=== PATIENT | female | born 1950 | race Caucasian/White ===

== ENCOUNTER 2016-04-17 06:53 | Emergency (ER) | payer OTHER ==
[2016-04-17] MEDS ORDERED: NS 0.9% 1000 ML* 1,000 ML IV ONE (07:29)
[2016-04-17 07:51] LABS: Hematocrit 40 % (35-47); Hemoglobin 13.3 g/dl (12.0-16.0); Mean Corpuscular HGB Conc 33 g/dl (31-36); Mean Corpuscular Hemoglobin 33 pg (27-31); Mean Corpuscular Volume 98 fL (80-97); Mean Platelet Volume 9 um3 (7.4-10.4); Red Blood Count 4.06 10^6/ul (4.0-5.4); Red Cell Distribution Width 16 % (10.5-15); White Blood Count 6.8 10^3/ul (3.5-10.8)
[2016-04-17 08:08] LABS: Albumin 3.6 g/dL (3.2-5.2); BUN/Creatinine Ratio 12.3 (8-20); Calcium 8.6 mg/dL (8.6-10.3); EGFR African American 118.4 (>60); EGFR Non-African American 92.1 (>60); Globulin 2.6 g/dL (2-4); Magnesium 1.5 mg/dL (1.9-2.7); Potassium 3.6 mmol/L (3.5-5.0); Total Bilirubin 1.1 mg/dL (0.2-1.0); Total Protein 6.2 g/dL (6.4-8.9)
[2016-04-17 08:11] LABS: Troponin I 0.01 ng/mL (<0.04)
[2016-04-17] MEDS ORDERED: Magnesium Sulfate 2 GM IV* 2 GM/50 ML BAG IVPB ONE (08:22)
[2016-04-17] MEDS ORDERED: Ondansetron INJ* 2 MG/ML VIAL IV ONE (08:30)
--- NOTE | 2016-04-17 08:30 | ED ---
Kofi Jarrett Karl, scribed for Ainsley Phoenix MD on 04/17/16 at 0801 . Complex/Multi-Sys Presentation - HPI Summary HPI Summary: Pt is a 65 y/o female that presents to the ED by EMS with c/o vomiting and cold symptoms - head and ear congestion, sore throat, cough x 2 days. Pt stated she was vomiting every 30 min last everning. Pt has been suffering from sinus congestion and ear ache for 2 days. Pt also reported feeling feverish, not measured, and dizziness while she was getting up to go to the bathroom yesterday. Pt states she took all of her medications including protonix, metoprolol, and Opana at 5am and her symptoms are "better" Pt stated that currently in the ED she is suffering from sore throat, WHYTE and fatigue. Pt did not get the flu vaccine this year. Pt was around another with similar sx on Sunday. Pt denies cp, sob, abd pain. Pt did take over the counter decongestant, antihistamine with little improvement but may have thrown up, - History Of Current Complaint Chief Complaint: EDGeneral Time Seen by Provider: 04/17/16 07:29 Hx Obtained From: Patient Onset/Duration: Gradual Onset, Lasting Days - 2, Still Present Timing: Constant Severity Currently: Mild Severity Initially: Mild Associated Signs And Symptoms: Positive: Dizziness, Cough, Vomiting, Fever. Negative: Decreased Responsiveness, Confusion, Headache, SOB, Wheezing, Diaphoresis, Anticoagulation Therapy - Allergies/Home Medications Allergies/Adverse Reactions: Allergies Allergy/AdvReac Type Severity Reaction Status Date / Time Acetaminophen [From Tylenol] Allergy GI Upset Verified 01/11/15 01:07 Penicillins [PCN] Allergy Unknown Verified 01/11/15 01:08 Reaction Details Influenza Vaccines AdvReac Unknown See Comment Verified 01/11/15 01:08 Ibuprofen AdvReac See Comment Verified 01/11/15 01:08 PMH/Surg Hx/FS Hx/Imm Hx Previously Healthy: Yes Endocrine/Hematology History: Reports: Hx Anticoagulant Therapy - lovenox, Hx Blood Transfusions, Hx Anemia Denies: Hx Diabetes, Hx Systemic Lupus Erythematosus, Hx Thyroid Disease Cardiovascular History: Reports: Hx Deep Vein Thrombosis, Hx Embolism, Hx Hypertension, Other Cardiovascular Problems/Disorders - TACHY Denies: Hx Congestive Heart Failure Respiratory History: Reports: Hx Asthma, Hx Chronic Obstructive Pulmonary Disease (COPD), Hx Pulmonary Embolism, Hx Seasonal Allergies, Other Respiratory Problems/Disorders - PULMONARY EMBOLI GI History: Reports: Hx Gastroesophageal Reflux Disease, Hx Gastrointestinal Bleed, Hx Ulcer, Other GI Disorders - Gastric Bypass, hx GI bleed History: Denies: Hx Dialysis, Hx Renal Disease Musculoskeletal History: Reports: Hx Arthritis - left knee, Hx Back Problems, Hx Orthopedic Injury - left foot, Other Musculoskeletal History - HX OBESITY, S/ P GASTIC BYPASS 2003 Denies: Hx Rheumatoid Arthritis Sensory History: Reports: Hx Contacts or Glasses - reading Opthamlomology History: Reports: Hx Contacts or Glasses - reading Neurological History: Denies: Hx CVA Psychiatric History: Reports: Hx Anxiety, Hx Depression - Cancer History Cancer Type, Location and Year: 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 HYSTERECTOMY 2003. GASTRIC BYPASS 2003. D&C. left foot Fx, plates and screws. cholecystectomy Hx Anesthesia Reactions: No - Immunization History Date of Tetanus Vaccine: PT STATES UNSURE Date of Influenza Vaccine: NONE Infectious Disease History: No Infectious Disease History: Reports: Hx Hepatitis - ulcers Denies: Traveled Outside the [place] in Last 30 Days - Family History Known Family History: Positive: Hypertension, Diabetes, Other - CA - Social History Alcohol Use: None Alcohol Amount: States I drink more than I should Substance Use Type: Reports: None Smoking Status (MU): Never Smoked Tobacco Review of Systems Positive: Fever, Fatigue Negative: Drainage, Erythema ENT: Other - sinus congestion Positive: Sore Throat, Ear Ache Cardiovascular: Negative Negative: Palpitations, Chest Pain Positive: Cough. Negative: Shortness Of Breath Positive: Vomiting. Negative: Diarrhea, Nausea Genitourinary: Negative Musculoskeletal: Negative Skin: Negative Neurological: Other - dizziness Positive: Headache Psychological: Normal All Other Systems Reviewed And Are Negative: Yes Physical Exam Triage Information Reviewed: Yes Vital Signs On Initial Exam: Initial Vitals Temp Pulse Resp BP Pulse Ox 99.1 F 90 16 138/85 97 04/17/16 07:19 04/17/16 07:19 04/17/16 07:19 04/17/16 07:19 04/17/16 07:19 Vital Signs Reviewed: Yes Completion Of Physical Exam Limited Due To: Altered Mental Status Appearance: Positive: Well-Appearing, No Pain Distress, Well-Nourished Skin: Positive: Warm, Skin Color Reflects Adequate Perfusion, Dry Head/Face: Positive: Normal Head/Face Inspection Eyes: Positive: Normal, EOMI, WILLIAM ENT: Positive: Pharynx normal, Nasal congestion - turbinates inflammed, Other - + PND No exudate, erythema uvula midline. Negative: Nasal drainage, TMs normal - scant fluid b/l TM - no retraction, erythema, bulging, TM dull, TM red, Tonsillar exudate Neck: Positive: Supple, Nontender, No Lymphadenopathy Respiratory/Lung Sounds: Positive: Clear to Auscultation, Breath Sounds Present. Negative: Decreased Breath Sounds, Rales, Stridor, Wheezes Cardiovascular: Positive: Normal, RRR. Negative: IRR, Murmur, Rub, Leg Edema Left, Leg Edema Right Abdomen Description: Positive: Nontender, No Organomegaly, Soft Bowel Sounds: Positive: Present Musculoskeletal: Positive: Normal, Strength/ROM Intact Neurological: Positive: Normal, Sensory/Motor Intact, Alert, Oriented to Person Place, Time Psychiatric: Positive: Normal AVPU Assessment: Alert - Colome Coma Scale Best Eye Response: 4 - Spontaneous Best Motor Response: 6 - Obeys Commands Best Verbal Response: 5 - Oriented Diagnostics - Vital Signs Vital Signs Temp Pulse Resp BP Pulse Ox 04/17/16 07:19 99.1 F 90 16 138/85 97 - Laboratory Lab Results: Lab Results 04/17/16 04/17/16 Range/Units 07:35 07:35 WBC 6.8 (3.5-10.8) 10^3/ul RBC 4.06 (4.0-5.4) 10^6/ul Hgb 13.3 (12.0-16.0) g/dl Hct 40 (35-47) % MCV 98 H (80-97) fL MCH 33 H (27-31) pg MCHC 33 (31-36) g/dl RDW 16 H (10.5-15) % Plt Count 205 (150-450) 10^3/ul MPV 9 (7.4-10.4) um3 Neut % (Auto) 80.2 (38-83) % Lymph % (Auto) 8.8 L (25-47) % [place] % (Auto) 9.1 H (1-9) % Eos % (Auto) 1.5 (0-6) % Baso % (Auto) 0.4 (0-2) % Absolute Neuts (auto) 5.5 (1.5-7.7) 10^3/ul Absolute Lymphs (auto) 0.6 L (1.0-4.8) 10^3/ul Absolute Monos (auto) 0.6 (0-0.8) 10^3/ul Absolute Eos (auto) 0.1 (0-0.6) 10^3/ul Absolute Basos (auto) 0 (0-0.2) 10^3/ul Absolute Nucleated RBC 0 10^3/ul Nucleated RBC % 0 Sodium 138 (133-145) mmol/L Potassium 3.6 (3.5-5.0) mmol/L Chloride 105 (101-111) mmol/L Carbon Dioxide 25 (22-32) mmol/L Anion Gap 8 (2-11) mmol/L BUN 8 (6-24) mg/dL Creatinine 0.65 (0.51-0.95) mg/dL Est GFR ( Amer) 118.4 (>60) Est GFR (Non-Af Amer) 92.1 (>60) BUN/Creatinine Ratio 12.3 (8-20) Glucose 108 H (70-100) mg/dL Calcium 8.6 (8.6-10.3) mg/dL Magnesium 1.5 L (1.9-2.7) mg/dL Total Bilirubin 1.10 H (0.2-1.0) mg/dL AST 23 (13-39) U/L ALT 18 (7-52) U/L Alkaline Phosphatase 96 (34-104) U/L Total Creatine Kinase 31 (10-223) U/L Troponin I 0.01 (<0.04) ng/mL Total Protein 6.2 L (6.4-8.9) g/dL Albumin 3.6 (3.2-5.2) g/dL Globulin 2.6 (2-4) g/dL Albumin/Globulin Ratio 1.4 (1-3) Lipase 14 (11.0-82.0) U/L Result Diagrams: 04/17/16 07:35 04/17/16 07:35 Lab Statement: Any lab studies that have been ordered have been reviewed, and results considered in the medical decision making process. - Radiology No standard instances Radiology Interpretation Completed By: Radiologist - NDICATION: Cough. Congestion. COMPARISON: February 22, 2016 TECHNIQUE: An AP portable view obtained at 0855 hours is submitted. FINDINGS: Bones/Soft Tissues: There are no acute bony findings. Cardiomediastinal: The cardiomediastinal silhouette is normal. Lungs: There are no infiltrates. Pleura: There are no pleural effusions. Other: None IMPRESSION: NO ACTIVE DISEASE. <Electronically signed by Main Tao MD in OV> 04/17/16 0909 - EKG 07:30 EKG Interpretation: NSR at 87 bpm, No acute ST changes Re-Evaluation - Re-Evaluation First Eval Change: Improved - Pt continues to feel well d/w pt low Magnesium - replacement order Awaiting flyu and CXR pt without acute needs Second Eval Change: Improved - pt states feels much better Took po Will d/c with Rx flonase PCP f/u reviewed with pt secretion hygeine Complex Multi-Symp Course/Dx Assessment/Plan: Pt presents with 12 hours n/v, dizziness, head congestion, ear fullness and sore throat after exposure to someone with simiarl sx on Sat. Pt took morning meds and feels well at time of presentation. Will give IVF, check labs, EKG, urine, CxR, flu and throat. If all unremarkable, will d.c home - recommend nasal spray. Pt in agreement with plan - Diagnoses Provider Diagnoses: Hypomagnesemia, Head congestion Discharge - Discharge Plan Condition: Improved Disposition: HOME Patient Education Materials: Hypomagnesemia (ED), Upper Respiratory Infection (ED) Referrals: Hyun Obando MD [Primary Care Provider] - Additional Instructions: - Stay well hydrated - drink plenty on non-alcoholic, non-caffinated beverage - For the first 8 hours - eat and drink bland foods - dry toast, crackers, scrambled eggs, pasta noodles. If you tolerate this okay, slowly add food to your diet. Wait until you are feeling better before eating spicy food, acidic food, tomato based food - Use nasal spray as directed for congestion - Once you are feeling better, change your pillow case and your toothbrush -contact your doctor to schedule a follow-up appointment. Contact your doctor or return with questions or concerns The documentation as recorded by the Kofi neil Karl accurately reflects the service I personally performed and the decisions made by me, Ainsley Phoenix MD.
--- NOTE | 2016-04-17 09:13 | RAD ---
INDICATION: Cough. Congestion. COMPARISON: February 22, 2016 TECHNIQUE: An AP portable view obtained at 0855 hours is submitted. FINDINGS: Bones/Soft Tissues: There are no acute bony findings. Cardiomediastinal: The cardiomediastinal silhouette is normal. Lungs: There are no infiltrates. Pleura: There are no pleural effusions. Other: None IMPRESSION: NO ACTIVE DISEASE.
[2016-04-17 11:05] VITALS: BP 118/66
== END 2016-04-17 11:05 | disposition home or self-care (01) ==
LOC: ED 06:53
DX: E83.42 Hypomagnesemia (principal); R09.81 Nasal congestion; R11.0 Nausea; R50.9 Fever, unspecified; R05 Cough; R42 Dizziness and giddiness; J02.9 Acute pharyngitis, unspecified
CPT/HCPCS: 36415; 71010; 80053; 82550; 83690; 83735; 84484; 85025; 87502; 87651; 93005; 96374; 99284; J2405; J3475

== ENCOUNTER 2016-04-23 16:37 | Inpatient (IN) | payer OTHER ==
[2016-04-23] MEDS ORDERED: Ibuprofen TAB* 600 MG PO ONE (17:04)
--- NOTE | 2016-04-23 17:21 | ED ---
Back Pain - HPI Summary HPI Summary: Patient presents with left hip and lower back pain after slipping and falling on her icy driveway last night. She wasn't able to get up immediately, and had to slide down to get to a spot where she could get up safely. Once she was up she had pain. Today her discomfort is so intense that she is unable to bear weight on the leg. She has chronic pain and her regular medications have not taken her pain away. She does not notice bruising or swelling. When she forward flexes the hip beyond 30 degrees she has to stop due to pain. She denies previous injury to this hip, but does have a history of cancer and "brittle bones" as a result of treatments. No N/T or swelling in the extremity. - History of Current Complaint Chief Complaint: EDBackInjuryPain Stated Complaint: BACK PAIN Time Seen by Provider: 04/23/16 16:56 Hx Obtained From: Patient Onset/Duration: Sudden Onset Onset/Duration: Started Days Ago - 1 Timing: Constant Back Pain Location: Is Discrete @ - left hip Severity Initially: Moderate Severity Currently: Moderate Pain Intensity: 7 Character: Sharp, Aching, Stiffness Aggravating Symptom(s): Movement Alleviating Symptom(s): Nothing Associated Signs And Symptoms: Positive: Pain with Weight Bearing - Allergies/Home Medications Allergies/Adverse Reactions: Allergies Allergy/AdvReac Type Severity Reaction Status Date / Time Acetaminophen [From Tylenol] Allergy GI Upset Verified 01/11/15 01:07 Penicillins [PCN] Allergy Unknown Verified 01/11/15 01:08 Reaction Details Influenza Vaccines AdvReac Unknown See Comment Verified 01/11/15 01:08 Ibuprofen AdvReac See Comment Verified 01/11/15 01:08 PMH/Surg Hx/FS Hx/Imm Hx Endocrine/Hematology History: Reports: Hx Anticoagulant Therapy - lovenox, Hx Blood Transfusions, Hx Anemia Denies: Hx Diabetes, Hx Systemic Lupus Erythematosus, Hx Thyroid Disease Cardiovascular History: Reports: Hx Deep Vein Thrombosis, Hx Embolism, Hx Hypertension, Other Cardiovascular Problems/Disorders - TACHY Denies: Hx Congestive Heart Failure Respiratory History: Reports: Hx Asthma, Hx Chronic Obstructive Pulmonary Disease (COPD), Hx Pulmonary Embolism, Hx Seasonal Allergies, Other Respiratory Problems/Disorders - PULMONARY EMBOLI GI History: Reports: Hx Gastroesophageal Reflux Disease, Hx Gastrointestinal Bleed, Hx Ulcer, Other GI Disorders - Gastric Bypass, hx GI bleed History: Denies: Hx Dialysis, Hx Renal Disease Musculoskeletal History: Reports: Hx Arthritis - left knee, Hx Back Problems, Hx Orthopedic Injury - left foot, Other Musculoskeletal History - HX OBESITY, S/ P GASTIC BYPASS 2003 Denies: Hx Rheumatoid Arthritis Sensory History: Reports: Hx Contacts or Glasses - reading Opthamlomology History: Reports: Hx Contacts or Glasses - reading Neurological History: Denies: Hx CVA Psychiatric History: Reports: Hx Anxiety, Hx Depression - Cancer History Cancer Type, Location and Year: 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 HYSTERECTOMY 2003. GASTRIC BYPASS 2003. D&C. left foot Fx, plates and screws. cholecystectomy Hx Anesthesia Reactions: No - Immunization History Date of Tetanus Vaccine: PT STATES UNSURE Date of Influenza Vaccine: NONE Infectious Disease History: No Infectious Disease History: Reports: Hx Hepatitis - ulcers Denies: Traveled Outside the [place] in Last 30 Days - Family History Known Family History: Positive: Hypertension, Diabetes, Other - CA - Social History Occupation: Retired Lives: With Family Alcohol Use: None Alcohol Amount: States I drink more than I should Substance Use Type: Reports: None Smoking Status (MU): Never Smoked Tobacco Review of Systems Positive: Myalgia, Decreased ROM Negative: Weakness, Paresthesia, Numbness All Other Systems Reviewed And Are Negative: Yes Physical Exam Triage Information Reviewed: Yes Vital Signs On Initial Exam: Initial Vitals Temp Pulse Resp BP Pulse Ox 97.0 F 92 16 117/80 96 04/23/16 16:44 04/23/16 16:44 04/23/16 16:44 04/23/16 16:44 04/23/16 16:44 Vital Signs Reviewed: Yes Appearance: Positive: Well-Appearing, Well-Nourished, Pain Distress Skin: Positive: Warm, Skin Color Reflects Adequate Perfusion, Dry, Soft Head/Face: Positive: Normal Head/Face Inspection Eyes: Positive: EOMI, WILLIAM, Conjunctiva Clear ENT: Positive: Hearing grossly normal Neck: Positive: Supple, Nontender Respiratory/Lung Sounds: Positive: Breath Sounds Present Cardiovascular: Positive: RRR Musculoskeletal: Positive: Limited @ - left hip flexion to 30 with pain; pain limited all other ranges, Pain @ - TTP left greater troch; no pain with palp of femur/groin or SI; pelvis stable; no pain with ER/IR rotation with hip in neutral Neurological: Positive: Sensory/Motor Intact, Alert, Oriented to Person Place, Time, NV Bundle Intact Distally - 2+ DP pulse, Unable to Assess Gait Psychiatric: Positive: Affect/Mood Appropriate AVPU Assessment: Alert Diagnostics - Vital Signs Vital Signs Temp Pulse Resp BP Pulse Ox 04/23/16 16:44 97.0 F 92 16 117/80 96 - Laboratory Result Diagrams: 04/23/16 20:47 04/23/16 20:47 Lab Statement: Any lab studies that have been ordered have been reviewed, and results considered in the medical decision making process. - Radiology No standard instances Xray Interpretation: No Acute Changes Radiology Interpretation Completed By: Radiologist - CT No standard instances CT Interpretation: Positive (See Comments) CT Interpretation Completed By: Radiologist - Left non-displaced greater trochanteric fracture Re-Evaluation - Re-Evaluation First Eval Re-Evaluation Time: 19:00 Change: Improved - pain diminished with ibuprofen Back Pain Course/Dx - Diagnoses Differential Diagnosis/HQI/PQRI: Positive: Arthritis, Fracture, Herniated Disc, Osteoporosis, Strain, Sprain Provider Diagnoses: Closed fracture of greater trochanter of left femur - Provider Notifications Discussed Care of Patient With: Dr. Naylor with orthopedics; Dr. Rodriguez with hospital medicine Time Discussed With Above Provider: 18:55 Instructed by Provider To: Admit As Inpatient Discharge - Discharge Plan Condition: Stable Disposition: ADMITTED TO [facility]
--- NOTE | 2016-04-23 17:50 | RAD ---
HISTORY: Fall on ice, left hip pain, pelvis pain COMPARISONS: February 23, 2014 VIEWS: 3, Frontal view of the pelvis with frontal and frog-leg views FINDINGS: BONE DENSITY: Normal. BONES: There are chronic appearing fractures of the left superior and inferior pubic rami. There is no acute displaced fracture or dislocation. There is a stable 1 island of the proximal left femur. JOINTS: There is no arthropathy. ALIGNMENT: There is no dislocation. SOFT TISSUES: Unremarkable. OTHER FINDINGS: Degenerative changes are noted of the spine IMPRESSION: 1. CHRONIC APPEARING FRACTURES OF THE LEFT PUBIC RAMI. 2. NO RADIOGRAPHIC EVIDENCE FOR ACUTE HIP FRACTURE. X-RAYS MAY BE NEGATIVE WITH NONDISPLACED HIP FRACTURE, IF THERE IS PERSISTENT CLINICAL CONCERN, RECOMMEND CONSIDERATION OF MRI. IN THE SETTING OF CONTRAINDICATION TO MRI OR LIMITATION IN EMERGENT ACCESS TO MRI, CT WOULD BE SUGGESTED.
--- NOTE | 2016-04-23 18:41 | RAD ---
HISTORY: Trauma, pelvic pain COMPARISONS: Plain film dated April 23, 2016 TECHNIQUE: Multiple contiguous axial CT images are obtained of the pelvis, with coronal and sagittal multiplanar reconstructions, without intravenous contrast administration. FINDINGS: BONE DENSITY: There is diffuse osteopenia. BONES: There is a nondisplaced fracture through the greater trochanter of the left femur. There is remote post right deformity of the right superior and inferior pubic rami. A bone island versus enchondroma is noted. JOINTS: There is mild osteoarthritis of the hips and SI joints MUSCULATURE: Unremarkable ALIGNMENT: There is no dislocation. SOFT TISSUES: Unremarkable. OTHER FINDINGS: None. IMPRESSION: 1. OSTEOPENIA. 2. NONDISPLACED FRACTURE OF THE GREATER TROCHANTER OF THE LEFT FEMUR. 3. REMOTE POSTTRAUMATIC DEFORMITY TO THE LEFT PUBIC RAMI
[2016-04-23] MEDS ORDERED: Ondansetron INJ* 2 MG/ML VIAL IV PRN (19:58)
[2016-04-23] MEDS ORDERED: Albuterol 2.5 MG/3 ML NEB.SOL* (0.083%) INH PRN (19:58)
[2016-04-23] MEDS ORDERED: Melatonin (NF) 3 MG TAB PO PRN (19:58)
--- NOTE | 2016-04-23 20:03 | HP ---
H&P (Free Text) History and Physical: PCP: Pradip Obando MD Date/Time of Evaluation: 04/23/20151924 CC: back pain HPI: Mrs Looney is a 65YO female HX Hodkin's lymphoma, breast CA, HTN, HLD, COPD, & DVT/PE experienced a mechanical fall last night with immediate L hip pain and difficulty ambulating. Her pain increased today preventing her from walking and prompting her to present for evaluation. She denies prodomal symptoms. She denies any recent chest pain, SOB, palpitations, F/C, or N/V/D. She does report some chest congestion. Work up reveals a non-displaced L greater trochanteric femur FX. I have ordered blood work, an ECG, & CXR which are pending. PMedHx Hodkin's lymphoma breast CA COPD HTN HLD DVT/PE chronic LBP R shoulder FX managed non-operatively L wrist FX managed non-operatively Allergies Acetaminophen [From Tylenol] Allergy (Verified 01/11/15 01:07) GI Upset Penicillins [PCN] Allergy (Verified 01/11/15 01:08) Unknown Reaction Details Influenza Vaccines Adverse Reaction (Unknown, Verified 01/11/15 01:08) See Comment PT STATES THE SHOT MAKES HER FEEL SICK Ibuprofen Adverse Reaction (Verified 01/11/15 01:08) See Comment TOLD NOT TO TAKE IBUPROFEN BY R/T HX GASTRIC ULCERS. PSurgHx B mastectomy gastric bypass hystectomy ORIF R foot R knee surgery SocHx: no tobacco, alcohol, or recreational drugs; single, lives alone; on disability; full code status FamHx: reviewed, non-contributory ROS: as above, otherwise reviewed and all were negative Constitutional: NAD, normally developed, overweight white female vitals: Vital Signs Temp 36.1 C 04/23/16 16:44 Pulse 92 04/23/16 16:44 Resp 16 04/23/16 16:44 BP 117/80 04/23/16 16:44 Pulse Ox 96 04/23/16 16:44 Intake & Output 04/22/16 04/23/16 04/23/16 23:59 11:59 23:59 Weight 152 lb HEENM: atraumatic; sclera/conjunctiva: non-icteric/clear; hearing: clinically intact; oropharynx: clear, mucosa moist Neck: soft tissue: non-tender; thyroid: normal Pulmonary: clear to auscultation bilaterally, good aeration, no accessory muscle use CV: RR/RR, normal S1S2, no carotid bruit, no jugular venous distention, 2+ B DP/ PT, no edema Abdominal: soft, non-distended, non-tender, no rebound/guarding/rigidity, normoactive bowel sounds, no hepatosplenomegaly or masses, no costovertebral angle tenderness Musculoskeletal: general: grossly intact, no objective deformity; gait: non- ambulatory 2nd pain Integumental: normal appearance & texture Psychiatric orientation: AA&O to PPS affect: calm mood: cooperative eye contact: good content: reliable responses: timely insight: good Testing: ordered, pending ECG: ordered, pending CXR: ordered, pending XRY L hip, personally reviewed: IMPRESSION: 1. CHRONIC APPEARING FRACTURES OF THE LEFT PUBIC RAMI. 2. NO RADIOGRAPHIC EVIDENCE FOR ACUTE HIP FRACTURE. X-RAYS MAY BE NEGATIVE WITH NONDISPLACED HIP FRACTURE, IF THERE IS PERSISTENT CLINICAL CONCERN, RECOMMEND CONSIDERATION OF MRI. IN THE SETTING OF CONTRAINDICATION TO MRI OR LIMITATION IN EMERGENT ACCESS TO MRI, CT WOULD BE SUGGESTED. CT pelvis, personally reviewed: IMPRESSION: 1. OSTEOPENIA. 2. NONDISPLACED FRACTURE OF THE GREATER TROCHANTER OF THE LEFT FEMUR. 3. REMOTE POSTTRAUMATIC DEFORMITY TO THE LEFT PUBIC RAMI Impression: 65F presenting with non-displaced L femur FX s/p mechanical fall DIAGNOSIS & PLAN Primary non-displaced L greater trochanteric femur FX s/p mechanical fall : pain control : Talia Naylor MD orthopedic surgery consulted by [facility]; will evaluate in AM : heparin SQ x1 dose tonight & SCDs BLE : no contraindications in history to surgery/anesthesia identified; labs, ECG, & CXR will need to be reviewed w/ final approval per anesthesiology : gallardo to gravity : supportive care Secondary HX Hodkin's lymphoma : no evidence of disease, no acute issues HX breast CA : no evidence of disease, no acute issues COPD : albuterol nebs : mometasone/formoterol : tiotropium : incentive spirometry : supplemental oxygen HTN : continue lisinopril & metoprolol HLD : heart healthy diet DVT/PE : SCDs & heparin SQ chronic LBP : pain control Admission Rational: inpatient for surgical management of L greater trochanteric femur FX DVTp: SCDs & heparin SQ Code Status: full
--- NOTE | 2016-04-23 20:35 | RAD ---
HISTORY: Cough COMPARISONS: April 17, 2016 VIEWS:1: Single frontal portable view of the chest at 8:20 PM FINDINGS: LINES AND TUBES: None. CARDIOMEDIASTINAL SILHOUETTE: The cardiomediastinal silhouette is normal for portable technique. PLEURA: The costophrenic angles are sharp. No pleural abnormalities are noted. LUNG PARENCHYMA: The lungs are clear. ABDOMEN: The upper abdomen is clear. There is no subphrenic gas. BONES AND SOFT TISSUES: There is a chronic appearing fracture of the proximal right humerus IMPRESSION: NO ACTIVE CARDIOPULMONARY DISEASE.
[2016-04-23] MEDS ORDERED: Heparin VIAL(*) 5000 UNITS/ML VIAL (FIVE THOUSAND) SUBCUT ONE (22:00)
[2016-04-23] MEDS: Docusate CAP* 100 MG PO SCH (23:41)
[2016-04-23] MEDS: Metoprolol Tartrate TAB* 25 MG PO SCH (23:41)
[2016-04-23] MEDS: NS 0.9% 1000 ML* 1,000 ML IV SCH (23:45)
[2016-04-23] MEDS: Mometasone/Formoter 200/5 MDI INH SCH (23:46)
[2016-04-24 01:04] LABS: Hematocrit 42 % (35-47); Mean Corpuscular HGB Conc 33 g/dl (31-36); Mean Corpuscular Hemoglobin 33 pg (27-31); Mean Corpuscular Volume 99 fL (80-97); Mean Platelet Volume 9 um3 (7.4-10.4); Red Blood Count 4.25 10^6/ul (4.0-5.4); Red Cell Distribution Width 16 % (10.5-15); White Blood Count 8.6 10^3/ul (3.5-10.8)
[2016-04-24 01:05] LABS: Add Diff/Slide Review? Slide Review Added; Comments Flag Yes
[2016-04-24 01:09] LABS: BUN/Creatinine Ratio 16.7 (8-20); Calcium 8.7 mg/dL (8.6-10.3); EGFR African American 129.9 (>60); Potassium 4.2 mmol/L (3.5-5.0)
[2016-04-24] MEDS: Albuterol 2.5 MG/3 ML NEB.SOL* (0.083%) INH SCH ×4 (02:16→19:43)
[2016-04-24] MEDS: HYDROmorphone INJ* 1 MG/ML CARPUJECT SYRINGE IV PRN ×4 (05:23→22:37)
[2016-04-24] MEDS ORDERED: hydrALAZINE IV* 20 MG/ML VIAL IV SLOW PU ONE (05:37)
[2016-04-24] MEDS ORDERED: hydrALAZINE IV* 20 MG/ML VIAL ONE (05:57)
[2016-04-24] MEDS: Mometasone/Formoter 200/5 MDI INH SCH ×2 (07:41→19:43)
[2016-04-24] MEDS: Montelukast Sodium TAB* 10 MG PO SCH (07:52)
[2016-04-24] MEDS: Docusate CAP* 100 MG PO SCH ×2 (07:53→20:02)
[2016-04-24] MEDS: Venlafaxine EXT RELEASE CAP* 75 MG PO SCH (07:53)
[2016-04-24] MEDS: Pantoprazole IV* 40 MG IV SCH (07:54)
[2016-04-24] MEDS: Metoprolol Tartrate TAB* 25 MG PO SCH ×2 (07:54→20:02)
[2016-04-24] MEDS ORDERED: Lisinopril TAB* 10 MG PO SCH (09:00)
[2016-04-24] MEDS: NS 0.9% 1000 ML* 1,000 ML IV SCH ×2 (09:31→20:01)
[2016-04-24] MEDS ORDERED: Spiriva Inhaler DEVICE* 1 EACH DEVICE INH ONE (11:00)
[2016-04-24] MEDS: Tiotropium CAP.INH* CAP.INH/18 MCG (USE ORDER SET !) INH SCH (11:35)
--- NOTE | 2016-04-24 14:17 | CONS ---
ORTHOPEDIC CONSULTATION: DATE OF CONSULT: 04/24/16 CHIEF COMPLAINT: Left hip pain. HISTORY OF PRESENT ILLNESS: Ms. Puente is a 65-year-old female with significant medical comorbidities and past medical history who had a fall on some ice landing on her left side on 04/22/16. The patient had immediate 6/10 pain in the left hip. Any ambulation or weightbearing increased her pain. Her pain increased overnight and she became unable to walk because of the left hip pain. She was then brought to [facility]. The patient is noted to have a comminuted minimally displaced left greater trochanteric fracture of the proximal femur. I am consulted for orthopedic fracture care. PAST MEDICAL HISTORY: Breast cancer; Hodgkin's lymphoma; COPD; hypertension; HLD; DVT/PE; chronic low back pain; right shoulder fracture, managed nonoperatively; left pelvic fracture, managed nonoperatively; left wrist fracture, managed nonoperatively. PAST SURGICAL HISTORY: Left foot surgery, left knee partial replacement, hysterectomy, gastric bypass, bilateral mastectomy, left vein thrombus excision. CURRENT MEDICATIONS: 1. Albuterol 2.5 q.2 hours p.r.n. wheezing. 2. Lisinopril 20 mg p.o. daily. 3. Melatonin 3 mg p.o. q.h.s. 4. Metoprolol 25 mg p.o. b.i.d. 5. Mometasone/formoterol 200/5 MDI 2 puffs inhaled b.i.d. 6. Montelukast 10 mg p.o. daily. 7. Pantoprazole 40 mg p.o. daily. 8. Venlafaxine 225 mg p.o. daily. 9. Tiotropium capsule inhaled daily. ALLERGIES: ACETAMINOPHEN, IBUPROFEN, PENICILLIN, INFLUENZA VACCINE. FAMILY HISTORY: Negative or noncontributory. SOCIAL HISTORY: The patient lives alone with her dog. No tobacco, alcohol, or recreational drug use. She is on full disability. Normally ambulates independently. REVIEW OF SYSTEMS: Fourteen systems are reviewed with the patient today. Positive for left hip pain and recent fall. Positive for the history of Hodgkin 's lymphoma and breast cancer. Negative for any other muscle or joint pain. Negative for head trauma, headache, dizziness, memory loss. Negative for fevers , chills, chest pain, shortness of breath, nausea, vomiting, diarrhea. Otherwise, the patient reports review of systems is negative but not relevant. PHYSICAL EXAM: Vitals: Temperature 97.6, pulse is 67, blood pressure 176/88. General: The patient is a thin female, in no apparent distress. Alert and oriented x3. Lying in bed, in no apparent distress. HEENT: Atraumatic, normocephalic. Pupils equal and reactive to light. Neck: Trachea midline. Neck: Supple. No palpable adenopathy. Heart: S1 and S2. Lungs: Clear to auscultation in all lung swenson. No wheezes, rubs, or rhonchi. Abdomen: Soft , nontender, nondistended. Bowel sounds in 4 quadrants. Left lower extremity: Slight tenderness to palpation along the greater trochanteric region. She has a healed scar at the knee and the foot. She demonstrates EHL, FHL, dorsiflexion, and plantar flexion. Full sensation to light touch in all nerve distributions and 2+ palpable DP pulse. Any movement at the hip causes pain. DIAGNOSTIC STUDIES/LAB DATA: Radiographs: Multiple plain films of the left hip and a CT scan shows comminuted minimally displaced fracture of the greater trochanter of the left proximal femur. No obvious intertrochanteric fracture. No obvious femoral neck fracture. Laboratory values: 04/23/16 labs show white blood cell 8.6, hematocrit 42, platelets 222. INR 0.97. Sodium 135, potassium 4.2, chloride 101, BUN and creatinine 10 and 0.6. ASSESSMENT AND PLAN: Ms. Puente is a 65-year-old female status post fall with a minimally displaced comminuted left greater trochanteric fracture of the proximal femur. The patient is unable to ambulate because of pain. She does live alone. She reports she is active and walks her dog constantly. We discussed nonoperative and operative treatment plan. She understands with nonoperative treatment, the fracture could displace in the future. At this time , the patient chooses operative intervention for better pain control and earlier ambulation. We will tentatively plan open reduction and internal fixation of the left greater trochanteric fracture to be scheduled for . Approximate OR time will be 4 p.m. or 1600. She should be n.p.o. after 8 a.m. on 04/25/16. She should be given her regular diet today. She will be further optimized and cleared for surgery by Medicine today. For now, the patient should be weight bearing as tolerated with a rolling walker with no active abduction. P.r.n. analgesia. Please call with any questions. Thank you for this orthopedic consultation. [id number]/[facility] #: [id number] MTDTalia
[2016-04-24] MEDS ORDERED: hydrALAZINE IV* 20 MG/ML VIAL IV SLOW PU PRN (15:45)
--- NOTE | 2016-04-24 17:26 | PN ---
Subjective Date of Service: 04/24/16 Interval History: Seen and examined Worried about elevated blood pressures Pain well controlled denies SOB, chest pain, LH, headaches, N/V Objective Active Medications: Albuterol (Ventolin 2.5 Mg/3 Ml Neb.Marya*) 2.5 mg INH Q2H PRN PRN Reason: SOB/WHEEZING Albuterol (Ventolin 2.5 Mg/3 Ml Neb.Marya*) 2.5 mg INH [id number] AWAKE [facility] Last Admin: 04/24/16 12:54 Dose: 2.5 mg Docusate Sodium (Colace Cap*) 100 mg PO BID [facility] Fluticasone Propionate (Flonase Nasal [place] 50mcg*) 2 spray BOTH NARES DAILY [facility] Hydralazine HCl (Apresoline Iv*) 5 mg IV SLOW PU Q6H PRN PRN Reason: SYSTOLIC BP GREATER THAN: Hydromorphone HCl (Dilaudid Iv*) 0.5 mg IV Q2H PRN PRN Reason: PAIN Last Admin: 04/24/16 11:36 Dose: 0.5 mg Sodium Chloride (Ns 0.9% 1000 Ml*) 1,000 mls @ 100 mls/hr IV PER RATE [facility] Last Admin: 04/24/16 09:31 Dose: 100 mls/hr Melatonin (Melatonin (Nf)) 3 mg PO BEDTIME PRN; Protocol PRN Reason: Sleep Metoprolol Tartrate (Lopressor Tab*) 25 mg PO BID [facility] Last Admin: 04/24/16 07:54 Dose: 25 mg Mometasone Furoate/Formoterol Fumar (Dulera 200/5 Mdi*) 2 puff INH BID [facility] Last Admin: 04/24/16 07:41 Dose: 2 puff Montelukast Sodium (Singulair Tab*) 10 mg PO DAILY [facility] Last Admin: 04/24/16 07:52 Dose: 10 mg Ondansetron HCl (Zofran Inj*) 4 mg IV Q6H PRN PRN Reason: NAUSEA Pantoprazole Sodium (Protonix Iv*) 40 mg IV DAILY [facility] Last Admin: 04/24/16 07:54 Dose: 40 mg Potassium Chloride (Klor Con Er Tab*) 20 meq PO DAILY [facility] Sucralfate (Carafate*) 1 gm PO QID [facility] Tiotropium [place] (Spiriva Cap.Inh*) 1 cap INH DAILY [facility] Last Admin: 04/24/16 11:35 Dose: 1 cap Venlafaxine HCl (Effexor Xr Cap*) 225 mg PO DAILY [facility] Last Admin: 04/24/16 07:53 Dose: 225 mg Vital Signs 04/23/16 04/23/16 04/23/16 22:38 22:42 23:00 Temperature 98.2 F 98.2 F Pulse Rate 85 85 Respiratory 16 18 Rate Blood Pressure 157/94 157/94 (mmHg) O2 Sat by Pulse 99 99 Oximetry 04/24/16 04/24/16 04/24/16 02:15 04:12 05:23 Temperature 97.6 F Pulse Rate 67 Respiratory 16 16 Rate Blood Pressure 176/88 (mmHg) O2 Sat by Pulse 96 99 Oximetry 04/24/16 04/24/16 04/24/16 05:33 06:23 07:25 Temperature 98.1 F Pulse Rate 87 Respiratory 16 18 Rate Blood Pressure 198/110 170/113 (mmHg) O2 Sat by Pulse 99 Oximetry 04/24/16 04/24/16 04/24/16 07:45 07:50 09:30 Temperature Pulse Rate 65 72 Respiratory 15 15 16 Rate Blood Pressure 153/78 (mmHg) O2 Sat by Pulse 98 98 Oximetry 04/24/16 04/24/16 04/24/16 11:36 12:20 12:36 Temperature 98.4 F Pulse Rate 83 Respiratory 18 18 16 Rate Blood Pressure 177/99 (mmHg) O2 Sat by Pulse 99 Oximetry 04/24/16 12:55 Temperature Pulse Rate 70 Respiratory 15 Rate Blood Pressure (mmHg) O2 Sat by Pulse 96 Oximetry Oxygen Devices in Use Now: None Appearance: NAD Eyes: No Scleral Icterus, PERRLA Ears/Nose/Mouth/Throat: NL Teeth, Lips, Gums, Clear Oropharnyx, Mucous Membranes Moist Neck: NL Appearance and Movements; NL JVP, Trachea Midline Respiratory: Symmetrical Chest Expansion and Respiratory Effort, Clear to Auscultation Cardiovascular: NL Sounds; No Murmurs; No JVD, RRR, - Abdominal: NL Sounds; No Tenderness; No Distention, No Hepatosplenomegaly Lymphatic: No Cervical Adenopathy Extremities: No Edema, No Clubbing, Cyanosis Neurological: Alert and Oriented x 3 Result Diagrams: 04/23/16 20:47 04/23/16 20:47 Assess/Plan/Problems-Billing Assessment: 65 yo F h/o COPD per chart review although pt endorses asthma and not COPD, PE in 06/2013 and DVT 11/2013 (in setting of lymphoma per patient) previously on xarelto off since 05/2015, HTN, HLD, p/w LEFT hip fracture s/p mechanical fall - Patient Problems (1) Hip fracture Comment: Pain control Plan on OR tomorrow with Dr. Dayday TIWARI midnight (2) HTN (hypertension) Comment: c/w lisinopril and metoprolol PRN IV hydralazine prior to surgery. Will add PO meds if needed s/p OR (3) History of pulmonary embolism Comment: 06/2013 Completed (4) Asthma Comment: Pt denies COPD. Denies h/o smoking c/w dulera, spiriva, singular, albuterol nebs PRN Insentive spirometry (5) DVT prophylaxis Code(s): YOD2016 - Comment: HS
[2016-04-24] MEDS: Sucralfate TAB* 1 GM PO SCH (20:02)
[2016-04-24] MEDS: Heparin VIAL(*) 5000 UNITS/ML VIAL (FIVE THOUSAND) SUBCUT SCH (21:22)
[2016-04-25] MEDS: Albuterol 2.5 MG/3 ML NEB.SOL* (0.083%) INH SCH ×4 (01:53→19:39)
[2016-04-25] MEDS: HYDROmorphone INJ* 1 MG/ML CARPUJECT SYRINGE IV PRN ×10 (05:21→23:02)
[2016-04-25] MEDS: Heparin VIAL(*) 5000 UNITS/ML VIAL (FIVE THOUSAND) SUBCUT SCH (05:22)
[2016-04-25] MEDS: NS 0.9% 1000 ML* 1,000 ML IV SCH (06:04)
[2016-04-25] MEDS: Mometasone/Formoter 200/5 MDI INH SCH ×2 (08:01→19:39)
[2016-04-25] MEDS: Tiotropium CAP.INH* CAP.INH/18 MCG (USE ORDER SET !) INH SCH (08:02)
[2016-04-25] MEDS: Docusate CAP* 100 MG PO SCH ×2 (09:04→21:41)
[2016-04-25] MEDS: Sucralfate TAB* 1 GM PO SCH ×4 (09:04→21:42)
[2016-04-25] MEDS: Potassium Chlor TAB* 20 MEQ TAB.ER PO SCH (09:04)
[2016-04-25] MEDS: Montelukast Sodium TAB* 10 MG PO SCH (09:04)
[2016-04-25] MEDS: Pantoprazole IV* 40 MG IV SCH (09:05)
[2016-04-25] MEDS: Venlafaxine EXT RELEASE CAP* 75 MG PO SCH (09:33)
[2016-04-25] MEDS: Metoprolol Tartrate TAB* 25 MG PO SCH ×2 (09:33→21:41)
[2016-04-25] MEDS: Fluticasone NASAL SPRAY 50MCG* 16 gm SPRAY BTL BOTH NARES SCH (13:28)
[2016-04-25] MEDS ORDERED: Clindamycin 900 MG IVPREMIX(* 900 MG/50 ML SDV IV ONE (15:17)
[2016-04-25] MEDS ORDERED: Dexamethasone IV* 4 MG/ML 1 ML (4 MG) IV SLOW PU ONE (15:17)
[2016-04-25] MEDS ORDERED: Buffered Lidocaine 1% SYR 3ML* 3 ML/SYR SYRINGE INTRADERM ONE (15:17)
[2016-04-25] MEDS ORDERED: Levalbuterol 0.63MG/3ML NEB INH ONE (15:17)
[2016-04-25] MEDS ORDERED: Dexamethasone IV* 4 MG/ML 1 ML (4 MG) ONE (15:22)
[2016-04-25] MEDS ORDERED: Buffered Lidocaine 1% SYR 3ML* 3 ML/SYR SYRINGE ONE (15:22)
--- NOTE | 2016-04-25 15:24 | PN ---
Progress Note - Progress Note SOAP: Subjective: pt resting comfortably with minimal pain Objective: Vital Signs Temp Pulse Resp BP Pulse Ox 98.8 F 86 18 167/123 96 04/25/16 12:42 04/25/16 12:42 04/25/16 13:11 04/25/16 12:42 04/25/16 12:42 Laboratory Last Values WBC 8.6 10^3/ul (3.5-10.8) 04/23/16 20:47 RBC 4.25 10^6/ul (4.0-5.4) 04/23/16 20:47 Hgb 14.0 g/dl (12.0-16.0) 04/23/16 20:47 Hct 42 % (35-47) 04/23/16 20:47 MCV 99 fL (80-97) H 04/23/16 20:47 MCH 33 pg (27-31) H 04/23/16 20:47 MCHC 33 g/dl (31-36) 04/23/16 20:47 RDW 16 % (10.5-15) H 04/23/16 20:47 Plt Count 222 10^3/ul (150-450) 04/23/16 20:47 MPV 9 um3 (7.4-10.4) 04/23/16 20:47 Neut % (Auto) 72.5 % (38-83) 04/23/16 20:47 Lymph % (Auto) 18.4 % (25-47) L 04/23/16 20:47 [place] % (Auto) 5.8 % (1-9) 04/23/16 20:47 Eos % (Auto) 2.5 % (0-6) 04/23/16 20:47 Baso % (Auto) 0.8 % (0-2) 04/23/16 20:47 Absolute Neuts (auto) 6.2 10^3/ul (1.5-7.7) 04/23/16 20:47 Absolute Lymphs (auto) 1.6 10^3/ul (1.0-4.8) 04/23/16 20:47 Absolute Monos (auto) 0.5 10^3/ul (0-0.8) 04/23/16 20:47 Absolute Eos (auto) 0.2 10^3/ul (0-0.6) 04/23/16 20:47 Absolute Basos (auto) 0.1 10^3/ul (0-0.2) 04/23/16 20:47 Absolute Nucleated RBC 0.01 10^3/ul 04/23/16 20:47 Nucleated RBC % 0.1 04/23/16 20:47 INR (Anticoag Therapy) 0.97 (0.89-1.11) 04/23/16 20:47 Sodium 135 mmol/L (133-145) 04/23/16 20:47 Potassium 4.2 mmol/L (3.5-5.0) 04/23/16 20:47 Chloride 101 mmol/L (101-111) 04/23/16 20:47 Carbon Dioxide 25 mmol/L (22-32) 04/23/16 20:47 Anion Gap 9 mmol/L (2-11) 04/23/16 20:47 BUN 10 mg/dL (6-24) 04/23/16 20:47 Creatinine 0.60 mg/dL (0.51-0.95) 04/23/16 20:47 Est GFR ( Amer) 129.9 (>60) 04/23/16 20:47 Est GFR (Non-Af Amer) 101.0 (>60) 04/23/16 20:47 BUN/Creatinine Ratio 16.7 (8-20) 04/23/16 20:47 Glucose 117 mg/dL (70-100) H 04/23/16 20:47 Calcium 8.7 mg/dL (8.6-10.3) 04/23/16 20:47 PE: moving foot and toes well, 2+ DP pulses, intact sensation Assessment: 65 yo female with a left greater trochanteric fracture Plan: 1) NWB LLE 2) NPO- OR tonight with Dr. Naylor for ORIF left hip 3) hospitalist co-managing
[2016-04-25] MEDS ORDERED: Ondansetron INJ* 2 MG/ML VIAL ONE (15:26)
[2016-04-25] MEDS ORDERED: Lidocaine 2% MPF* 2 ML VIAL ONE (15:26)
[2016-04-25] MEDS ORDERED: Ketorolac INJ* 30 MG/ML 1 ML VIAL ONE (15:26)
[2016-04-25] MEDS ORDERED: Atracurium* 10 MG/ML 10 ML VIAL ONE (15:26)
[2016-04-25] MEDS ORDERED: Propofol* 10 MG/ML 20 ML BTL IV PUSH ONE (15:26)
--- NOTE | 2016-04-25 16:10 | PN ---
Subjective Date of Service: 04/25/16 Interval History: Seen and examined this AM prior to surgery Has no complaints, No SOB/CP, LH Pain well controlled Using incentive spirometer Objective Active Medications: Albuterol (Ventolin 2.5 Mg/3 Ml Neb.Marya*) 2.5 mg INH Q2H PRN PRN Reason: SOB/WHEEZING Albuterol (Ventolin 2.5 Mg/3 Ml Neb.Marya*) 2.5 mg INH [id number] AWAKE [facility] Last Admin: 04/25/16 12:28 Dose: 2.5 mg Docusate Sodium (Colace Cap*) 100 mg PO BID [facility] Last Admin: 04/25/16 09:04 Dose: 100 mg Fluticasone Propionate (Flonase Nasal [place] 50mcg*) 2 spray BOTH NARES DAILY [facility] Last Admin: 04/25/16 13:28 Dose: 2 spray Hydralazine HCl (Apresoline Iv*) 5 mg IV SLOW PU Q6H PRN PRN Reason: SYSTOLIC BP GREATER THAN: Last Admin: 04/25/16 13:28 Dose: 5 mg Hydromorphone HCl (Dilaudid Iv*) 0.5 mg IV Q2H PRN PRN Reason: PAIN Last Admin: 04/25/16 12:11 Dose: 0.5 mg Sodium Chloride (Ns 0.9% 1000 Ml*) 1,000 mls @ 100 mls/hr IV PER RATE [facility] Last Admin: 04/25/16 06:04 Dose: 100 mls/hr Lactated Ringer's (Lactated Ringers 1000 Ml Bag*) 1,000 mls @ 125 mls/hr IV PER RATE [facility] Melatonin (Melatonin (Nf)) 3 mg PO BEDTIME PRN; Protocol PRN Reason: Sleep Metoprolol Tartrate (Lopressor Tab*) 25 mg PO BID [facility] Last Admin: 04/25/16 09:33 Dose: 25 mg Mometasone Furoate/Formoterol Fumar (Dulera 200/5 Mdi*) 2 puff INH BID [facility] Last Admin: 04/25/16 08:01 Dose: 2 puff Montelukast Sodium (Singulair Tab*) 10 mg PO DAILY [facility] Last Admin: 04/25/16 09:04 Dose: 10 mg Ondansetron HCl (Zofran Inj*) 4 mg IV Q6H PRN PRN Reason: NAUSEA Pantoprazole Sodium (Protonix Iv*) 40 mg IV DAILY [facility] Last Admin: 04/25/16 09:05 Dose: 40 mg Potassium Chloride (Klor Con Er Tab*) 20 meq PO DAILY [facility] Last Admin: 04/25/16 09:04 Dose: 20 meq Sucralfate (Carafate*) 1 gm PO QID [facility] Last Admin: 04/25/16 13:38 Dose: Not Given Tiotropium [place] (Spiriva Cap.Inh*) 1 cap INH DAILY [facility] Last Admin: 04/25/16 08:02 Dose: 1 cap Venlafaxine HCl (Effexor Xr Cap*) 225 mg PO DAILY [facility] Last Admin: 04/25/16 09:33 Dose: 225 mg Vital Signs 04/24/16 04/24/16 04/24/16 19:44 20:00 20:03 Temperature Pulse Rate 104 Respiratory 20 17 17 Rate Blood Pressure (mmHg) O2 Sat by Pulse 98 Oximetry 04/24/16 04/24/16 04/24/16 20:08 21:03 22:37 Temperature 98.0 F Pulse Rate 112 Respiratory 18 17 17 Rate Blood Pressure 153/86 (mmHg) O2 Sat by Pulse 98 Oximetry 04/24/16 04/25/16 04/25/16 23:37 03:11 05:21 Temperature 98.0 F Pulse Rate 78 Respiratory 16 16 17 Rate Blood Pressure 155/82 (mmHg) O2 Sat by Pulse 100 Oximetry 04/25/16 04/25/16 04/25/16 06:21 07:46 08:00 Temperature 98.0 F Pulse Rate 82 87 Respiratory 16 18 15 Rate Blood Pressure 180/120 165/93 (mmHg) O2 Sat by Pulse 100 98 Oximetry 04/25/16 04/25/16 04/25/16 12:11 12:30 12:42 Temperature 98.8 F Pulse Rate 89 86 Respiratory 20 16 18 Rate Blood Pressure 167/123 (mmHg) O2 Sat by Pulse 96 96 Oximetry 04/25/16 13:11 Temperature Pulse Rate Respiratory 18 Rate Blood Pressure (mmHg) O2 Sat by Pulse Oximetry Oxygen Devices in Use Now: None Appearance: NAD Eyes: No Scleral Icterus, PERRLA Ears/Nose/Mouth/Throat: NL Teeth, Lips, Gums, Clear Oropharnyx, Mucous Membranes Moist Neck: NL Appearance and Movements; NL JVP, Trachea Midline Respiratory: Symmetrical Chest Expansion and Respiratory Effort, Clear to Auscultation Cardiovascular: NL Sounds; No Murmurs; No JVD, RRR Abdominal: NL Sounds; No Tenderness; No Distention Lymphatic: No Cervical Adenopathy Extremities: No Edema, No Clubbing, Cyanosis Neurological: Alert and Oriented x 3 Result Diagrams: 04/23/16 20:47 04/23/16 20:47 Assess/Plan/Problems-Billing Assessment: 65 yo F h/o COPD per chart review although pt endorses asthma and not COPD, PE in 06/2013 and DVT 11/2013 (in setting of lymphoma per patient) previously on xarelto off since 05/2015, HTN, HLD, p/w LEFT hip fracture s/p mechanical fall - Patient Problems (1) Hip fracture Comment: Pain control Plan on OR today (2) HTN (hypertension) Comment: c/w lisinopril and metoprolol PRN IV hydralazine prior to surgery. Will add PO meds if needed s/p OR (3) History of pulmonary embolism Comment: 06/2013 Completed AC (4) Asthma Comment: Pt denies COPD. Denies h/o smoking c/w dulera, spiriva, singular, albuterol nebs PRN Insentive spirometry (5) DVT prophylaxis Code(s): FUE9213 - Comment: HILARIO
[2016-04-25] MEDS ORDERED: HYDROmorphone INJ* 1 MG/ML CARPUJECT SYRINGE ONE ×2 (16:49→20:24)
[2016-04-25] MEDS ORDERED: fentaNYL* 50 MCG/ML 5 ML VIAL (250 MCG VIAL) ONE (17:22)
[2016-04-25] MEDS ORDERED: Midazolam* 1 MG/ML 5 ML VIAL (5 MG) ONE (17:22)
[2016-04-25] MEDS ORDERED: Levalbuterol 1.25MG/0.5ML NEB ONE (17:29)
[2016-04-25] MEDS ORDERED: fentaNYL* 50 MCG/ML 2 ML VIAL (100 MCG VIAL) ONE (18:35)
[2016-04-25] MEDS ORDERED: Ondansetron INJ* 2 MG/ML VIAL IV PRN (18:47)
[2016-04-25] MEDS ORDERED: fentaNYL* 50 MCG/ML 2 ML VIAL (100 MCG VIAL) IV PRN (18:47)
[2016-04-25] MEDS ORDERED: Metoprolol Tartrate IV* 1 MG/ML 5 ML VIAL ONE (18:55)
[2016-04-25] MEDS ORDERED: Bupivacaine 0.5% W/EPI SDV* 30 ML VIAL ONE (19:15)
[2016-04-25] MEDS ORDERED: Lisinopril TAB* 10 MG PO ONE (19:58)
[2016-04-25] MEDS ORDERED: diPHENhydraMINE IV* 50 MG/ML 1 ml VIAL (BENADRYL) IV PRN (19:59)
--- NOTE | 2016-04-25 21:07 | RAD ---
INDICATION: Status post left hip ORIF COMPARISON: Left hip radiograph dated April 23, 2016 TECHNIQUE: 3 views of the left hip were obtained. FINDINGS: There is been interval placement of a lateral fixator along the lateral proximal margin of the left femur with 2 cerclage wires in anatomic position. Chronic fracture is again noted at the left pubic rami. IMPRESSION: Interval placement of fixator and cerclage wires as described above.
[2016-04-25] MEDS: Aspirin TAB* 325 MG PO SCH (21:41)
--- NOTE | 2016-04-25 23:16 | RAD ---
CPT II Codes: 6045F INDICATION: Left hip fracture TECHNIQUE: Intraoperative fluoroscopy was provided during left hip ORIF. FINDINGS: Four spot films depict placement and positioning of a left trochanteric board certified behavioral analyst plate with 2 cerclage wires.. Fluoroscopy time: 5.2 seconds IMPRESSION: As above.
[2016-04-26] MEDS: Albuterol 2.5 MG/3 ML NEB.SOL* (0.083%) INH SCH ×2 (01:23→07:32)
--- NOTE | 2016-04-26 03:58 | OP ---
DATE OF OPERATION: 04/25/16 - ROOM #348 DATE OF : 54 SURGEON: Brianne Naylor MD CONTINGENTS SUPERVISOR: MINERVA Staples ANESTHESIOLOGIST: Dr. Mosley. ANESTHESIA: General. PRE-OP DIAGNOSIS: Comminuted minimally displaced fracture of the left greater trochanter. POST-OP DIAGNOSIS: Comminuted minimally displaced fracture of the left greater trochanter. OPERATIVE PROCEDURE: Open reduction and internal fixation of the left greater trochanteric fracture. COMPLICATIONS: None. ESTIMATED BLOOD LOSS: 100 cc. SPECIMENS: None. HARDWARE USED: This is a Dall-Miles trochanteric Projection Welding Machine Operator Plate, size medium with a 100 mm length. Two beaded 2.0 Dall-SlideRocket cables were used. BRIEF HISTORY/INDICATIONS: Mr. Puente is a 65-year-old female who slipped and fell on to her left hip. This occurred on 04/23/16. Initially, she was able to walk, but the pain became severe and she was unable to ambulate. She was then brought to [facility] for evaluation. She was noted to have a comminuted mildly displaced fracture of the left greater trochanter. I was consulted for fracture care. She is a patient with severe pain and inability to ambulate. She wished to proceed with operative fixation of the fracture. She lives alone and felt it was imperative that she is able to walk her dog. Informed consent was obtained from the patient. She understood the operative and nonoperative treatment options. She wished to proceed with surgery. She understood the risks of surgery included, but were not limited to bleeding, infection, damage to nearby structures, continued pain, need for further surgery, intraoperative fracture, hardware failure, stroke, heart attack , blood clot, and . She wished to proceed. INTRAOPERATIVE FINDINGS: Intraoperatively, the patient was noted to have a minimally displaced comminuted fracture of the greater trochanter. DESCRIPTION OF PROCEDURE: Ms. Puetne was identified in the preanesthesia unit. Her left lower extremity was marked as the correct operative site. Informed consent was signed and placed in the chart. She was taken to the operating room and placed under general anesthesia. Paez catheter was placed. She was placed in the right lateral decubitus position on the peg board. All bony prominences were well padded. Left lower extremity was prepped and draped in the usual sterile fashion. Preop time-out was made to correctly identify the patient's side and site. Appropriate perioperative antibiotics were given within 1 hour of incision. A 10 cm posterior hip incision was made with a 10-blade and carried down to the lateral fascia. Lateral fascia was incised in line with the skin incision. A Charnley retractor was placed. The greater trochanter was only minimally displaced, but comminution was palpable. Electrocautery was used to elevate the proximal portion of the IT band and lateral muscle fascia. Lemus elevator was used to clear some lateral femur for placement of the trochanteric batch unit treater plate. A ruler was used to measure a medium trochanteric batch unit treater plate with length of 100 mm was chosen. This was properly placed along the proximal greater trochanter and lateral femur. Bone cement was used to secure the batch unit treater plate proximally. A stable construct was obtained. A 2.0 Ubi Video cables was placed both proximally and distally through the trochanteric batch unit treater plate. This was tensioned and crimped appropriately. The construct was noted to be quite stable. AP and lateral C-arm views confirmed a satisfactory reduction of the greater trochanteric fracture and proper placement of the hardware. The wound was copiously irrigated with sterile saline. The proximal IT band and lateral fascia was reapproximated using interrupted #5 Ethibond. The lateral fascial layer was reapproximated using interrupted #1 Vicryl's. The rest of the incisions was closed in a layered fashion using 0 and 2-0 Vicryl's. Skin was closed using running 3-0 Monocryl and Dermabond. Sterile Adaptic, 4x4's, and paper tapes were placed over the incision. The patient's anesthesia was reversed without difficulty. She was taken to the PACU in stable condition. Intended weightbearing will be weightbearing as tolerated with no active abduction. Intended DVT prophylaxis will be aspirin. [id number]/[facility] #: [id number] [facility]ALTH[facility]alia
[2016-04-26] MEDS: HYDROmorphone INJ* 1 MG/ML CARPUJECT SYRINGE IV PRN ×4 (05:46→16:23)
[2016-04-26 06:20] LABS: Hematocrit 36 % (35-47)
[2016-04-26 06:44] LABS: BUN/Creatinine Ratio 21.7 (8-20); Calcium 8.5 mg/dL (8.6-10.3); EGFR African American 176.4 (>60); EGFR Non-African American 137.2 (>60); Potassium 4.3 mmol/L (3.5-5.0)
--- NOTE | 2016-04-26 07:32 | PN ---
Progress Note - Progress Note SOAP: Subjective: Pt. reports pain was severe ON but is improved now. Objective: LLE - dressing c/d/i, distally nvi. thigh soft. Vital Signs: Temp Pulse Resp BP Pulse Ox 97.3 F 89 16 115/77 99 04/26/16 03:39 04/26/16 03:39 04/26/16 06:46 04/26/16 03:39 04/26/16 03:39 Laboratory Results - last 24 hr 04/26/16 04/26/16 05:39 05:39 Hgb 12.0 Hct 36 Sodium 138 Potassium 4.3 Chloride 108 Carbon Dioxide 22 Anion Gap 8 BUN 10 Creatinine 0.46 L Est GFR ( Amer) 176.4 Est GFR (Non-Af Amer) 137.2 BUN/Creatinine Ratio 21.7 H Glucose 96 Calcium 8.5 L Assessment: 65 yo F pod 1 s/p ORIF L greater troch fx Plan: WBAT LLE with no active abduction will need rolling walker PT/OT mobilize today ortho stable for d/c to home when mobilizing safely. ECASA 325 mg bid x 4 weeks
[2016-04-26] MEDS: Mometasone/Formoter 200/5 MDI INH SCH ×2 (07:34→19:39)
[2016-04-26] MEDS: Tiotropium CAP.INH* CAP.INH/18 MCG (USE ORDER SET !) INH SCH (07:34)
[2016-04-26] MEDS: Pantoprazole IV* 40 MG IV SCH (08:45)
[2016-04-26] MEDS: Aspirin TAB* 325 MG PO SCH ×2 (08:45→21:31)
[2016-04-26] MEDS: Montelukast Sodium TAB* 10 MG PO SCH (08:45)
[2016-04-26] MEDS: Potassium Chlor TAB* 20 MEQ TAB.ER PO SCH (08:46)
[2016-04-26] MEDS: Metoprolol Tartrate TAB* 25 MG PO SCH ×2 (08:48→23:46)
[2016-04-26] MEDS: Docusate CAP* 100 MG PO SCH ×2 (08:48→21:31)
[2016-04-26] MEDS: Venlafaxine EXT RELEASE CAP* 75 MG PO SCH (08:49)
[2016-04-26] MEDS: Vitamin THERAPEUTIC TAB PO SCH (08:49)
[2016-04-26] MEDS: Sucralfate TAB* 1 GM PO SCH ×4 (08:49→21:31)
[2016-04-26] MEDS: Fluticasone NASAL SPRAY 50MCG* 16 gm SPRAY BTL BOTH NARES SCH (09:08)
[2016-04-26] MEDS ORDERED: oxyCODONE TAB* 5 MG TAB PO PRN ×2 (09:28→12:44)
[2016-04-26] MEDS ORDERED: Albuterol 2.5 MG/3 ML NEB.SOL* (0.083%) INH PRN (09:41)
--- NOTE | 2016-04-26 11:14 | PN ---
Subjective Date of Service: 04/26/16 Interval History: Feels well. Pain overnight and this AM now resolved with pain medication PO Eating and drinking. Worked well with PT. Anxious to return home. Objective Active Medications: Albuterol (Ventolin 2.5 Mg/3 Ml Neb.Marya*) 2.5 mg INH Q6H PRN PRN Reason: SOB/WHEEZING Aspirin (Aspirin Tab*) 325 mg PO BID [facility] Last Admin: 04/26/16 08:45 Dose: 325 mg Diphenhydramine HCl (Benadryl Iv*) 25 mg IV Q6H PRN PRN Reason: itching or insomnia Docusate Sodium (Colace Cap*) 100 mg PO BID [facility] Last Admin: 04/26/16 08:48 Dose: 100 mg Fluticasone Propionate (Flonase Nasal [place] 50mcg*) 2 spray BOTH NARES DAILY [facility] Last Admin: 04/26/16 09:08 Dose: 2 spray Hydralazine HCl (Apresoline Iv*) 5 mg IV SLOW PU Q6H PRN PRN Reason: SYSTOLIC BP GREATER THAN: Last Admin: 04/25/16 13:28 Dose: 5 mg Hydromorphone HCl (Dilaudid Iv*) 0.5 mg IV Q2H PRN PRN Reason: PAIN Last Admin: 04/26/16 08:41 Dose: 0.5 mg Metoprolol Tartrate (Lopressor Tab*) 25 mg PO BID [facility] Last Admin: 04/26/16 08:48 Dose: 25 mg Mometasone Furoate/Formoterol Fumar (Dulera 200/5 Mdi*) 2 puff INH BID [facility] Last Admin: 04/26/16 07:34 Dose: 2 puff Montelukast Sodium (Singulair Tab*) 10 mg PO DAILY [facility] Last Admin: 04/26/16 08:45 Dose: 10 mg Multivitamins (Theragran Tab*) 1 tab PO DAILY [facility] Last Admin: 04/26/16 08:49 Dose: 1 tab Ondansetron HCl (Zofran Inj*) 4 mg IV Q6H PRN PRN Reason: NAUSEA Oxycodone HCl (Roxycodone Tab*) 5 mg PO Q6H PRN PRN Reason: PAIN - MODERATE Last Admin: 04/26/16 10:21 Dose: 5 mg Pantoprazole Sodium (Protonix Iv*) 40 mg IV DAILY [facility] Last Admin: 04/26/16 08:45 Dose: 40 mg Potassium Chloride (Klor Con Er Tab*) 20 meq PO DAILY [facility] Last Admin: 04/26/16 08:46 Dose: 20 meq Sucralfate (Carafate*) 1 gm PO QID [facility] Last Admin: 04/26/16 08:49 Dose: 1 gm Tiotropium [place] (Spiriva Cap.Inh*) 1 cap INH DAILY [facility] Last Admin: 04/26/16 07:34 Dose: 1 cap Venlafaxine HCl (Effexor Xr Cap*) 225 mg PO DAILY [facility] Last Admin: 04/26/16 08:49 Dose: 225 mg Vital Signs 04/25/16 04/25/16 04/25/16 12:11 12:30 12:39 Temperature 98.3 F Pulse Rate 89 78 Respiratory 20 16 18 Rate Blood Pressure (mmHg) O2 Sat by Pulse 96 100 Oximetry 04/25/16 04/25/16 04/25/16 12:42 13:11 16:53 Temperature 98.8 F Pulse Rate 86 Respiratory 18 18 16 Rate Blood Pressure 167/123 (mmHg) O2 Sat by Pulse 96 Oximetry 04/25/16 04/25/16 04/25/16 20:00 20:05 20:10 Temperature 97.3 F Pulse Rate 118 115 110 Respiratory 20 22 19 Rate Blood Pressure 165/105 159/101 161/98 (mmHg) O2 Sat by Pulse 100 100 100 Oximetry 04/25/16 04/25/16 04/25/16 20:15 20:25 20:30 Temperature Pulse Rate 109 104 Respiratory 19 18 17 Rate Blood Pressure 152/90 146/74 (mmHg) O2 Sat by Pulse 100 99 Oximetry 04/25/16 04/25/16 04/25/16 20:34 20:40 20:45 Temperature Pulse Rate 109 Respiratory 18 15 19 Rate Blood Pressure 138/60 (mmHg) O2 Sat by Pulse 97 Oximetry 04/25/16 04/25/16 04/25/16 20:57 21:08 21:16 Temperature 97.0 F Pulse Rate 106 106 Respiratory 12 18 14 Rate Blood Pressure 118/86 134/79 (mmHg) O2 Sat by Pulse 98 97 Oximetry 04/25/16 04/25/16 04/25/16 21:25 21:29 21:30 Temperature 97.9 F 97.9 F Pulse Rate 109 109 Respiratory 17 17 17 Rate Blood Pressure 132/79 132/79 (mmHg) O2 Sat by Pulse 98 98 Oximetry 04/25/16 04/25/16 04/25/16 21:34 21:40 21:45 Temperature Pulse Rate Respiratory 17 17 17 Rate Blood Pressure (mmHg) O2 Sat by Pulse Oximetry 04/25/16 04/25/16 04/25/16 21:49 22:08 22:38 Temperature 97.8 F Pulse Rate 87 Respiratory 17 16 16 Rate Blood Pressure 121/82 (mmHg) O2 Sat by Pulse 99 Oximetry 04/25/16 04/25/16 04/26/16 23:02 23:32 00:02 Temperature 97.8 F Pulse Rate 84 Respiratory 18 16 16 Rate Blood Pressure 116/80 (mmHg) O2 Sat by Pulse 99 Oximetry 04/26/16 04/26/16 04/26/16 01:27 01:35 03:39 Temperature 97.5 F 97.3 F Pulse Rate 90 89 Respiratory 16 16 Rate Blood Pressure 98/62 115/77 (mmHg) O2 Sat by Pulse 99 99 99 Oximetry 04/26/16 04/26/16 04/26/16 05:46 06:46 07:35 Temperature Pulse Rate 90 Respiratory 17 16 Rate Blood Pressure (mmHg) O2 Sat by Pulse 97 Oximetry 04/26/16 04/26/16 04/26/16 07:43 08:41 09:41 Temperature 98.1 F Pulse Rate 106 Respiratory 16 16 16 Rate Blood Pressure 128/66 (mmHg) O2 Sat by Pulse 95 Oximetry 04/26/16 10:21 Temperature Pulse Rate Respiratory 16 Rate Blood Pressure (mmHg) O2 Sat by Pulse Oximetry Oxygen Devices in Use Now: None Appearance: sitting in chair, NAD Eyes: No Scleral Icterus, PERRLA Ears/Nose/Mouth/Throat: NL Teeth, Lips, Gums, Clear Oropharnyx, Mucous Membranes Moist Neck: NL Appearance and Movements; NL JVP, Trachea Midline Respiratory: Symmetrical Chest Expansion and Respiratory Effort, Clear to Auscultation Cardiovascular: NL Sounds; No Murmurs; No JVD, RRR Abdominal: NL Sounds; No Tenderness; No Distention, No Hepatosplenomegaly Lymphatic: No Cervical Adenopathy Extremities: - - NV intact, no edema Neurological: Alert and Oriented x 3 Result Diagrams: 04/26/16 05:39 04/26/16 05:39 Assess/Plan/Problems-Billing Assessment: 65 yo F h/o COPD per chart review although pt endorses asthma and not COPD, PE in 06/2013 and DVT 11/2013 (in setting of lymphoma per patient) previously on xarelto off since 05/2015, HTN, HLD, p/w LEFT hip fracture s/p mechanical fall s/ p ORIF 04/25/16 - Patient Problems (1) Hip fracture Comment: Pain control OR with Sanjay Naylor 04/25/16 PT/OT/PMRU referral (2) HTN (hypertension) Comment: c/w metoprolol BP low after surgery. Lisinopril held this AM (3) History of pulmonary embolism Comment: 06/2013 Completed AC (4) Asthma Comment: Pt denies COPD. Denies h/o smoking c/w dulera, spiriva, singular, albuterol nebs PRN Insentive spirometry (5) DVT prophylaxis Code(s): [id number] - Comment: HSQ Full dose ASA BID x 4 weeks
[2016-04-26] MEDS: oxyCODONE TAB* 5 MG TAB PO PRN ×3 (13:19→22:37)
[2016-04-26] MEDS ORDERED: NS 0.9% 1000 ML* 1,000 ML IV ONE (21:15)
[2016-04-26] MEDS: Morphine INJ* 2 MG/ML 1 ML CARPUJECT IV PRN (21:31)
[2016-04-27] MEDS: oxyCODONE TAB* 5 MG TAB PO PRN ×3 (03:08→13:07)
[2016-04-27] MEDS: Morphine INJ* 2 MG/ML 1 ML CARPUJECT IV PRN (05:25)
[2016-04-27 06:09] LABS: Hematocrit 37 % (35-47); Hemoglobin 12.4 g/dl (12.0-16.0)
[2016-04-27] MEDS ORDERED: OXYMORPHONE 10 MG PO SCH (08:00)
[2016-04-27] MEDS: Tiotropium CAP.INH* CAP.INH/18 MCG (USE ORDER SET !) INH SCH (08:56)
[2016-04-27] MEDS: Potassium Chlor TAB* 20 MEQ TAB.ER PO SCH (08:57)
[2016-04-27] MEDS: Aspirin TAB* 325 MG PO SCH (08:57)
[2016-04-27] MEDS: Mometasone/Formoter 200/5 MDI INH SCH (08:57)
[2016-04-27] MEDS: Venlafaxine EXT RELEASE CAP* 75 MG PO SCH (08:57)
[2016-04-27] MEDS: Montelukast Sodium TAB* 10 MG PO SCH (08:57)
[2016-04-27] MEDS: Vitamin THERAPEUTIC TAB PO SCH (08:58)
[2016-04-27] MEDS: Docusate CAP* 100 MG PO SCH (08:58)
[2016-04-27] MEDS: Sucralfate TAB* 1 GM PO SCH ×2 (08:58→13:07)
[2016-04-27] MEDS: Metoprolol Tartrate TAB* 25 MG PO SCH (08:58)
[2016-04-27] MEDS: Pantoprazole IV* 40 MG IV SCH (08:59)
[2016-04-27] MEDS ORDERED: Lisinopril TAB* 10 MG PO SCH (09:00)
[2016-04-27] MEDS: Fluticasone NASAL SPRAY 50MCG* 16 gm SPRAY BTL BOTH NARES SCH (11:27)
[2016-04-27 12:06] VITALS: BP 145/73
--- NOTE | 2016-04-27 14:05 | PN ---
Progress Note - Progress Note SOAP: Subjective: Pt. reports her opana is from a pain clinic. Nursing reports it is now in pharmacy. Objective: LLE - dressing changed, inc c/d/i. distally nvi. Vital Signs: Temp Pulse Resp BP Pulse Ox 99.5 F 111 13 145/73 98 04/27/16 11:44 04/27/16 11:44 04/27/16 13:07 04/27/16 11:44 04/27/16 11:44 Laboratory Results - last 24 hr 04/27/16 05:44 Hgb 12.4 Hct 37 Assessment: 65 yo F pod 2 s/p L greater trochanteric fx ORIF Plan: pt/ot - wbat lle with no active hip abduction restarted home opana 10 mg bid ortho stable for d/c to home. f/u 2 weeks.
--- NOTE | 2016-04-28 03:25 | DS ---
DISCHARGE SUMMARY: DATE OF ADMISSION: 04/23/16 DATE OF DISCHARGE: 04/27/16 PRIMARY CARE PROVIDER: Hyun Obadno MD PRIMARY DIAGNOSIS: Nondisplaced left greater trochanteric femoral fracture, status post ORIF with Dr. Naylor. SECONDARY DIAGNOSES: Include: 1. Asthma. 2. Hypertension. 3. Hyperlipidemia. 4. History of deep venous thrombosis and pulmonary embolism. 5. Chronic lower back pain. MEDICATIONS ON DISCHARGE: 1. Ferrous sulfate 65 mg daily. 2. Docusate 100 mg twice daily. 3. Vitamin D3 2000 units daily. 4. Alpha lipoic acid 100 mg daily. 5. Albuterol 2 puffs inhaled 4 times a day as needed for shortness of breath. 6. Magnesium oxide 500 mg daily. 7. Advair 500/50 one puff twice daily. 8. Fluticasone nasal spray 2 sprays both nares daily. 9. Diclofenac 1.3% patch one patch twice daily transdermally. 10. Multivitamin 1 tab daily. 11. Metoprolol tartrate 25 mg twice daily. 12. Vitamin B12 one tab daily. 13. Lisinopril 50 mg daily. 14. Protonix 40 mg daily. 15. Ondansetron ODT 4 mg every 4 hours as needed for nausea. 16. Singulair 10 mg daily. 17. Carafate 1 g 4 times a day. 18. Oxycodone 5 mg 4 times a day as needed for pain. 19. Potassium chloride 20 mEq daily. 20. Effexor XR 225 mg daily. 21. Aspirin 325 mg twice daily for 1 month. Discussed the addition of aspirin for a month as a prophylaxis after ORIF with the patient. HISTORY OF PRESENT ILLNESS AND HOSPITAL COURSE: A 65-year-old female with past medical history as outlined in the history of present illness, on day of admission experienced mechanical fall at home with immediate left hip pain, presented to the hospital, found with nondisplaced greater trochanteric fracture. She was taken to the operating room with Dr. Naylor on 04/24/16 without incident. She did very well with the surgery and recovery was quite quick. She worked with PT and OT and not have additional needs at the time of discharge. She will be going home with a friend __who lives in a _ one floor apartment. She understands that she should have no active abduction of her hip. She has a walker at home. She will also leave with an incentive spirometer. There were no complications during the patient's hospital stay. Reasons to return to the hospital including but not limited to uncontrolled pain , fevers, chills, night sweats, chest pain, shortness of breath, loss of consciousness, near loss of consciousness, diarrhea, nausea, vomiting, inability to obtain or tolerate medications were discussed with the patient. She acknowledged her understanding. TIME SPENT: Greater than 45 minutes spent discharging this patient, greater than half was spent [id number] with the patient. CC: Hyun Obando MD; Brianne Naylor MD* [id number]/[facility] #: [id number] MTDD
== END 2016-04-27 14:00 | disposition home health service (06) | DRG 308 ==
LOC: ED 16:37 → SSU 19:50
PROVIDERS: ADMIT Hospitalist; ATTEND Internal Medicine
PROC: 0QS704Z Reposition Left Upper Femur with Internal Fixation Device, Open Approach (ICD-10-PCS; principal; 2016-04-23)
DX: S72.112A Displaced fracture of greater trochanter of left femur, initial encounter for closed fracture (principal); I10 Essential (primary) hypertension; J44.9 Chronic obstructive pulmonary disease, unspecified; K21.9 Gastro-esophageal reflux disease without esophagitis; Z85.3 Personal history of malignant neoplasm of breast; Z85.72 Personal history of non-Hodgkin lymphomas; E78.5 Hyperlipidemia, unspecified; G89.29 Other chronic pain; M54.5 Low back pain; Z98.84 Bariatric surgery status; Z88.8 Allergy status to other drugs, medicaments and biological substances; Z88.0 Allergy status to penicillin; W19.XXXA Unspecified fall, initial encounter; Y92.009 Unspecified place in unspecified non-institutional (private) residence as the place of occurrence of the external cause; J45.909 Unspecified asthma, uncomplicated; Z86.718 Personal history of other venous thrombosis and embolism; Z86.711 Personal history of pulmonary embolism; Z79.82 Long term (current) use of aspirin; M13.862 Other specified arthritis, left knee; F41.9 Anxiety disorder, unspecified; F32.9 Major depressive disorder, single episode, unspecified; Z82.49 Family history of ischemic heart disease and other diseases of the circulatory system; Z83.3 Family history of diabetes mellitus; Z80.9 Family history of malignant neoplasm, unspecified
CPT/HCPCS: 36415; 71010; 72192; 76000; 80048; 85014; 85018; 85025; 85610; 93005; 94640; 94760; A9270-GY; C1776; J0360; J1100; J1170; J1644; J1885; J2250; J2270; J2405; J2704; J3010; J3490

== ENCOUNTER 2016-05-03 15:10 | Emergency (ER) | payer OTHER ==
[2016-05-03 15:21] VITALS: BP 156/95
[2016-05-03] MEDS ORDERED: Ondansetron INJ* 2 MG/ML VIAL IV ONE (15:49)
[2016-05-03] MEDS ORDERED: NS 0.9% 1000 ML* 1,000 ML IV SCH (16:00)
[2016-05-03 16:05] LABS: Albumin 3.2 g/dL (3.2-5.2); BUN/Creatinine Ratio 19.6 (8-20); C Reactive Protein 24.48 mg/L (< 5.00); EGFR African American 156.6 (>60); EGFR Non-African American 121.8 (>60); Globulin 2.8 g/dL (2-4); Total Bilirubin 0.7 mg/dL (0.2-1.0)
--- NOTE | 2016-05-03 17:06 | RAD ---
HISTORY: Lower extremity pain and swelling TECHNIQUE: Multiple transverse and longitudinal ultrasound images were obtained of the veins of the left lower extremity using grayscale, color Doppler, and spectral Doppler imaging with and without compression and with augmentation. FINDINGS: DEEP VEINS: The common femoral vein, deep femoral vein, femoral vein and popliteal vein are compressible throughout their course, with normal flow on color Doppler imaging and normal response to augmentation on spectral Doppler imaging. SUPERFICIAL VEINS: There is occlusion of the left great saphenous vein beginning approximately 1.5 cm from the saphenofemoral junction extending to the calf. SOFT TISSUES: Grossly normal. No large popliteal fossa cyst was identified. IMPRESSION: 1. No sonographic evidence of deep vein thrombosis. 2. Occlusion of the left great saphenous vein please correlate to potential prior ablation therapy.
[2016-05-03 17:17] LABS: Hematocrit 36 % (35-47); Hemoglobin 11.9 g/dl (12.0-16.0); Mean Corpuscular HGB Conc 33 g/dl (31-36); Mean Corpuscular Hemoglobin 32 pg (27-31); Mean Corpuscular Volume 97 fL (80-97); Mean Platelet Volume 8 um3 (7.4-10.4); Red Blood Count 3.67 10^6/ul (4.0-5.4); Red Cell Distribution Width 16 % (10.5-15); White Blood Count 8.2 10^3/ul (3.5-10.8)
--- NOTE | 2016-05-03 17:37 | ED ---
Abhijeet Jarrett Anna, scribed for Truong Dsouza MD on 05/03/16 at 1541 . Lower Extremity - HPI Summary HPI Summary: Patient is a 65 y/o female coming to [facility] presenting with constant LLE pain that started today. She had hip surgery eight days ago with Dr. Naylor after breaking her femur. She is also experiencing leg edema, nausea, and SOB. She reports that Dr. Rodriguez was supposed to increase her blood pressure meds but that this has not happened yet. She says these symptoms feel similar to when she previously had a blood clot. - History of Current Complaint Chief Complaint: EDExtremityLower Stated Complaint: POSSIBLE BLOOD CLOTT Time Seen by Provider: 05/03/16 15:37 Hx Obtained From: Patient Onset of Pain: Hours, Prior to Arrival Onset/Duration: Still Present Severity Initially: Moderate Severity Currently: Moderate Pain Intensity: 3 Pain Scale Used: 0-10 Numeric Timing: Lasting Hours Location: Is Discrete @ - LLE - Allergies/Home Medications Allergies/Adverse Reactions: Allergies Allergy/AdvReac Type Severity Reaction Status Date / Time Penicillins [PCN] Allergy Unknown Verified 01/11/15 01:08 Reaction Details Influenza Vaccines AdvReac Unknown See Comment Verified 01/11/15 01:08 PMH/Surg Hx/FS Hx/Imm Hx Endocrine/Hematology History: Reports: Hx Anticoagulant Therapy - lovenox, Hx Blood Transfusions, Hx Anemia, Hx Unexplained Bleeding Denies: Hx Diabetes, Hx Systemic Lupus Erythematosus, Hx Thyroid Disease Cardiovascular History: Reports: Hx Deep Vein Thrombosis, Hx Embolism, Hx Hypertension, Other Cardiovascular Problems/Disorders - TACHY Denies: Hx Congestive Heart Failure Respiratory History: Reports: Hx Asthma, Hx Chronic Obstructive Pulmonary Disease (COPD), Hx Pulmonary Embolism, Hx Seasonal Allergies, Other Respiratory Problems/Disorders - PULMONARY EMBOLI GI History: Reports: Hx Gastroesophageal Reflux Disease, Hx Gastrointestinal Bleed, Hx Ulcer, Other GI Disorders - Gastric Bypass, hx GI bleed History: Denies: Hx Dialysis, Hx Renal Disease Musculoskeletal History: Reports: Hx Arthritis - left knee, Hx Back Problems, Hx Orthopedic Injury - left foot, Other Musculoskeletal History - HX OBESITY, S/ P GASTIC BYPASS 2003 Denies: Hx Rheumatoid Arthritis Sensory History: Reports: Hx Contacts or Glasses - reading Opthamlomology History: Reports: Hx Contacts or Glasses - reading Neurological History: Denies: Hx CVA Psychiatric History: Reports: Hx Anxiety, Hx Depression - Cancer History Cancer Type, Location and Year: 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 HYSTERECTOMY 2003. GASTRIC BYPASS 2003. D&C. left foot Fx, plates and screws. cholecystectomy Hx Anesthesia Reactions: No - Immunization History Date of Tetanus Vaccine: PT STATES UNSURE Date of Influenza Vaccine: NONE Infectious Disease History: No Infectious Disease History: Reports: Hx Hepatitis - ulcers Denies: Traveled Outside the [place] in Last 30 Days - Family History Known Family History: Positive: Hypertension, Diabetes, Other - CA - Social History Occupation: Retired Lives: Alone Alcohol Use: Occasionally Alcohol Amount: States I drink more than I should Substance Use Type: Reports: None Smoking Status (MU): Never Smoked Tobacco Review of Systems Positive: Shortness Of Breath Positive: Nausea Positive: Myalgia - LLE, Edema All Other Systems Reviewed And Are Negative: Yes Physical Exam - Summary Physical Exam Summary: VITAL SIGNS: Reviewed. GENERAL: Patient is a well developed and nourished female who is lying comfortable in the stretcher. Patient is not in any acute respiratory distress. HEAD AND FACE: No signs of trauma. No ecchymosis, hematomas or skull depressions. No sinus tenderness. EYES: PERRLA, EOMI x 2, No injected conjunctiva, no nystagmus. EARS: Hearing grossly intact. Ear canals and tympanic membranes are within normal limits. MOUTH: Oropharynx within normal limits. NECK: Supple, trachea is midline, no adenopathy, no JVD, no carotid bruit, no c- spine tenderness, neck with full ROM. CHEST: Symmetric, no tenderness at palpation LUNGS: Clear to auscultation bilaterally. No wheezing or crackles. CVS: Regular rate and rhythm, S1 and S2 present, no murmurs or gallops appreciated. ABDOMEN: Soft, non-tender. No signs of distention. No rebound no guarding, and no masses palpated. Bowel sounds are normal. EXTREMITIES: Left hip with dressing s/p surgery. No discharge it looks C/D/I. LLE with positive edema. Good pulses and capillary refill. NEURO: Alert and oriented x 3. No acute neurological deficits. Speech is normal and follows commands. SKIN: Dry and warm Triage Information Reviewed: Yes Vital Signs On Initial Exam: Initial Vitals Temp Pulse Resp BP Pulse Ox 96.4 F 103 16 156/95 98 05/03/16 15:15 05/03/16 15:15 05/03/16 15:15 05/03/16 15:15 05/03/16 15:15 Vital Signs Reviewed: Yes Diagnostics - Vital Signs Vital Signs Temp Pulse Resp BP Pulse Ox 05/03/16 15:15 96.4 F 103 16 156/95 98 - Laboratory Result Diagrams: 05/03/16 15:23 05/03/16 15:23 Lab Statement: Any lab studies that have been ordered have been reviewed, and results considered in the medical decision making process. - Ultrasound No standard instances Ultrasound Interpretation: No Acute Changes Ultrasound Interpretation Completed By: Radiologist - Venous Doppler US of LLE IMPRESSION: 1. No sonographic evidence of deep vein thrombosis. 2. Occlusion of the left great saphenous vein please correlate to potential prior ablation therapy. - EKG 15:15 Cardiac Rate: NL - 98 bpm EKG Rhythm: Sinus Rhythm EKG Interpretation: No S/T elevation. Q-waves in III and aVF. Lower Extremity Course/Dx - Course Assessment/Plan: Patient is a 65 y/o female coming to [facility] presenting with constant LLE pain that started today. She had hip surgery eight days ago with Dr. Naylor after breaking her femur. She is also experiencing leg edema, nausea, and SOB. She reports that Dr. Rodriguez was supposed to increase her blood pressure meds but that this has not happened yet. She says these symptoms feel similar to when she previously had a blood clot. Blood work wnl except for increased CRP 24.86. In the Ed course she was slightly nauseous therefore she was given IV fluids and Zofran for nausea. LLE U/S impression: No DVT. Since blood work wnl and she has no DVT the patient will be discharged home with F/U of PMD. I discussed all my findings and test results with the patient. Patient understands and agrees. Patient was instructed to return to the emergency room immediately if any of the symptoms return or worsens. Patient understands and agrees. Plan of care was discussed with the patient and patient understands and agrees with the plan of care. All questions were answered at patient satisfaction. There were no further complaints or concerns. Patient was instructed to follow up with primary care physician within 3 to 5 days. Patient is hemodynamically stable. Patient is alert and oriented x 3. No acute neurological deficits. - Diagnoses Differential Diagnosis/HQI/PQRI: Positive: Cellulitis, DVT, Phlebitis Provider Diagnoses: Swelling of left lower extremity Discharge - Discharge Plan Condition: Stable Disposition: HOME Patient Education Materials: Leg Edema (ED) Referrals: Hyun Obando MD [Primary Care Provider] - Additional Instructions: Follow up with primary care physician within 48 hours. Return to the emergency department for changing or worsening symptoms. The documentation as recorded by the Abhijeet neil Anna accurately reflects the service I personally performed and the decisions made by Meet redmond Walter, MD.
== END 2016-05-03 17:44 | disposition home or self-care (01) ==
LOC: ED 15:10
DX: M79.89 Other specified soft tissue disorders (principal); M79.662 Pain in left lower leg; R60.0 Localized edema; R06.02 Shortness of breath; R11.0 Nausea
CPT/HCPCS: 36415; 80053; 83605; 85027; 86140; 93005; 96361; 96374; 99283; J2405

== ENCOUNTER 2016-08-25 11:51 | Inpatient (IN) | payer OTHER ==
[2016-08-25] MEDS ORDERED: methylPREDNISolone 125 MG* 2 ML VIAL IV ONE (12:36)
[2016-08-25] MEDS ORDERED: Albuterol/Ipratropium NEB.SOL* Albuterol 2.5 MG/Ipratropium 0.5 MG 3 ML INH ONE (12:36)
[2016-08-25] MEDS: NS 0.9% 1000 ML* 2,000 ML IV ONE (12:52)
[2016-08-25 12:56] LABS: Hematocrit 40 % (35-47); Hemoglobin 13.3 g/dl (12.0-16.0); Mean Corpuscular HGB Conc 33 g/dl (31-36); Mean Corpuscular Hemoglobin 30 pg (27-31); Mean Corpuscular Volume 91 fL (80-97); Mean Platelet Volume 8 um3 (7.4-10.4); Red Blood Count 4.41 10^6/ul (4.0-5.4); Red Cell Distribution Width 20 % (10.5-15); White Blood Count 8.6 10^3/ul (3.5-10.8)
[2016-08-25 13:11] LABS: BUN/Creatinine Ratio 14.8 (8-20); Calcium 8.1 mg/dL (8.6-10.3); EGFR African American 146.2 (>60); EGFR Non-African American 113.7 (>60); Globulin 2.4 g/dL (2-4); Potassium 3.6 mmol/L (3.5-5.0); Total Bilirubin 1.1 mg/dL (0.2-1.0); Total Protein 5.4 g/dL (6.4-8.9)
[2016-08-25] MEDS ORDERED: Ondansetron INJ* 2 MG/ML VIAL IV ONE (13:11)
[2016-08-25] MEDS ORDERED: Levofloxacin 750 MG IVPREMIX(* 750 MG/150 ML BAG IVPB ONE (13:29)
--- NOTE | 2016-08-25 13:41 | RAD ---
INDICATION: Sore throat, chest tightness, dyspnea, history of asthma, vomiting. Post bilateral mastectomy and implant reconstruction. COMPARISON: April 23, 2016 chest radiograph and December 30, 2013 PET/CT. TECHNIQUE: Dual energy PA and routine lateral views of the chest were obtained. REPORT: Mild prominence of the interstitial markings similar to the prior exam. Patchy rarefaction of upper lung zone pulmonary markings. No alveolar consolidation, focal pulmonary lesion, pleural effusion, pneumothorax. Negative for cardiomegaly. Unremarkable central pulmonary vasculature. Moderately tortuous descending thoracic aorta without change. Healed fracture at the proximal RIGHT humerus. Bone density appears decreased throughout. No suspicious focal osseous lesions visualized. IMPRESSION: Stigmata of obstructive lung disease. No acute pulmonary or cardiac process evident.
[2016-08-25] MEDS ORDERED: NS 0.9% 1000 ML* 2,000 ML IV ONE (14:48)
[2016-08-25] MEDS ORDERED: Benzocaine/Menthol LOZ* 1 LOZENGE PO PRN (14:51)
[2016-08-25] MEDS ORDERED: Albuterol 2.5 MG/3 ML NEB.SOL* (0.083%) INH PRN (14:51)
[2016-08-25] MEDS ORDERED: Acetaminophen TAB* 325 MG PO PRN (14:51)
[2016-08-25] MEDS ORDERED: OXYMORPHONE 10 MG PO PRN (14:53)
[2016-08-25] MEDS ORDERED: Iohexol 350* (CONTRAST) 500 ML MDV IV ONE (14:59)
[2016-08-25] MEDS ORDERED: Enoxaparin(*) 40 MG/0.4 ML SYR SUBCUT SCH (15:00)
--- NOTE | 2016-08-25 16:07 | RAD ---
INDICATION: Chest pain. Short of breath. Evaluate for pulmonary embolus. COMPARISON: CTA chest June 25, 2013 TECHNIQUE: Axial source images were obtained from the thoracic inlet to the hemidiaphragms following administration of [address] angiographic technique was utilized. Coronal and sagittal reconstructed images were acquired. CHEST FINDINGS: Neck/thyroid: The visualized neck to include the thyroid appear normal. Chest wall: There are no acute abnormalities of the bony thorax or chest wall. There are bilateral implants There is no supraclavicular, infraclavicular, or axillary lymphadenopathy. Lungs : There are no pulmonary parenchymal masses or infiltrates. The pulmonary interstitium appears normal. There are no endobronchial lesions. Cardiomediastinal structures: There are fourth ordering and distal right-sided pulmonary emboli with several foci which are in the distribution of prior emboli. The findings are likely related to recurrent pulmonary emboli with some chronic change. There are probable distal pulmonary emboli in the left versus chronic emboli. The pulmonary arterial opacification is suboptimal and the examination could be repeated if further evaluation is required. The heart is normal in size. There is no pericardial effusion. There is no evidence of aortic aneurysm or dissection. There is no mediastinal or hilar adenopathy. The esophagus appears normal. Pleura : There are no pleural-based masses or effusions. Other: There is hepatic steatosis with presumed hepatomegaly. The liver is imaged only in part. There is bariatric surgery. There is cholecystectomy. A left renal cyst is imaged in part. IMPRESSION: SUSPECT ACUTE SUPERIMPOSED UPON CHRONIC PULMONARY EMBOLI. MILDLY SUBOPTIMAL EXAMINATION (SEE ABOVE).
--- NOTE | 2016-08-25 16:08 | PN ---
Progress Note - Progress Note Note: Update: CTA chest with acute/subacute stroke. Started lovenox 1mg/kg Q12hr
--- NOTE | 2016-08-25 18:02 | ED ---
Adalid Jarrett Auryana, scribed for Kobe Pennington MD on 08/25/16 at 1424 . Respiratory - HPI Summary HPI Summary: 66 year old female presents with SOB starting this morning at 01:30. She states that it woke her from sleep. She also wheezing, cough, and trouble swallowing- now slightly improved from this morning. She also reports rhinorrhea but states that it is normal for her in the morning. She denies any fever, chills, or chest pain. Laying down makes her symptoms worse and nebulizer improved her symptoms. She denies any contact with recently ill people. She did not have a flu shot this year. She has had prior episodes. She is not on home O2. PMHx of asthma, COPD, and HTN but denies any history of CHF, NH, cardiomegaly, or DM. She denies any tobacco use. - History of Current Complaint Chief Complaint: EDShortnessOfBreath Stated Complaint: SOB Time Seen by Provider: 08/25/16 12:17 Hx Obtained From: Patient Onset/Duration: Sudden Onset - 01:30 - woke from sleep, Still Present Timing: Constant Initial Severity: Mild Current Severity: Mild Pain Intensity: 0 Aggravating Factor(s): Recumbent Position Alleviating Factor(s): Neb. Bronchodilators (Frequency Of Use) Associated Signs and Symptoms: Wheezing - trouble swallowing and cough Related History: Similar Episode/Dx as - see HPI - Allergy/Home Medications Allergies/Adverse Reactions: Allergies Allergy/AdvReac Type Severity Reaction Status Date / Time Penicillins [PCN] Allergy Unknown Verified 01/11/15 01:08 Reaction Details Influenza Vaccines AdvReac Unknown See Comment Verified 01/11/15 01:08 Home Medications: Home Medications Alpha-Lipoic Acid (Thioctic AC [Alpha Lipoic Acid] 200 mg PO DAILY 08/25/16 [ History Confirmed 08/25/16] Cyanocobalamin TAB* [Vitamin B12 TAB*] 500 mcg PO DAILY 08/25/16 [History Confirmed 08/25/16] Diclofenac 1.3% PATCH (NF) [Flector 1.3% PATCH (NF)] 1 patch TOPICAL Q12HR MDD 2 patches 08/25/16 [History Confirmed 08/25/16] Ferrous Sulfate TAB* 325 mg PO DAILY 08/25/16 [History Confirmed 08/25/16] Fluticasone NASAL * [Flonase *] 1 spray BOTH NARES DAILY 08/25/16 [History Confirmed 08/25/16] Gaviscon CHEW TAB* 1 tab.chew PO Q6H PRN 08/25/16 [History Confirmed 08/25/16] Lisinopril [Lisinopril 30 MG-] 30 mg PO DAILY 08/25/16 [History Confirmed ] Multiple Vitamins W/ Minerals [Multivitamin Women] 1 tab PO DAILY 08/25/16 [ History Confirmed 08/25/16] Oxymorphone (NF) [Opana (NF)] 10 mg PO Q12HR PRN MDD 20 mg 08/25/16 [History Confirmed 08/25/16] Sucralfate TAB* [Carafate*] 1 gm PO QID 08/25/16 [History Confirmed 08/25/16] Venlafaxine TAB (NF) [Effexor TAB (NF)] 50 mg PO TID 08/25/16 [History Confirmed 08/25/16] oxyCODONE TAB* [Roxycodone TAB 5 mg*] 5 - 10 mg PO .Q4-6H PRN MDD 35 mg [History Confirmed 08/25/16] PMH/Surg Hx/FS Hx/Imm Hx Endocrine/Hematology History: Reports: Hx Anticoagulant Therapy - lovenox, Hx Blood Transfusions, Hx Anemia, Hx Unexplained Bleeding Denies: Hx Diabetes, Hx Systemic Lupus Erythematosus, Hx Thyroid Disease Cardiovascular History: Reports: Hx Deep Vein Thrombosis, Hx Embolism, Hx Hypertension, Other Cardiovascular Problems/Disorders - TACHY Denies: Hx Congestive Heart Failure Respiratory History: Reports: Hx Asthma, Hx Chronic Obstructive Pulmonary Disease (COPD), Hx Pulmonary Embolism, Hx Seasonal Allergies, Other Respiratory Problems/Disorders - PULMONARY EMBOLI GI History: Reports: Hx Gastroesophageal Reflux Disease, Hx Gastrointestinal Bleed, Hx Ulcer, Other GI Disorders - Gastric Bypass, hx GI bleed History: Denies: Hx Dialysis, Hx Renal Disease Musculoskeletal History: Reports: Hx Arthritis - left knee, Hx Back Problems, Hx Orthopedic Injury - left foot, Other Musculoskeletal History - HX OBESITY, S/ P GASTIC BYPASS 2003 Denies: Hx Rheumatoid Arthritis Sensory History: Reports: Hx Contacts or Glasses - reading Opthamlomology History: Reports: Hx Contacts or Glasses - reading Neurological History: Denies: Hx CVA Psychiatric History: Reports: Hx Anxiety, Hx Depression - Cancer History Cancer Type, Location and Year: 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 HYSTERECTOMY 2003. GASTRIC BYPASS 2003. D&C. left foot Fx, plates and screws. cholecystectomy Hx Anesthesia Reactions: No - Immunization History Date of Tetanus Vaccine: PT STATES UNSURE Date of Influenza Vaccine: NONE Infectious Disease History: No Infectious Disease History: Reports: Hx Hepatitis - ulcers Denies: Traveled Outside the [place] in Last 30 Days - Family History Known Family History: Positive: Cardiac Disease, Hypertension, Diabetes, Other - CA - Social History Occupation: Retired Lives: Alone Alcohol Use: Occasionally Alcohol Amount: States I drink more than I should Substance Use Type: Reports: None Smoking Status (MU): Never Smoked Tobacco Review of Systems Constitutional: Negative Negative: Fever, Chills Eyes: Negative Positive: Other - trouble swallowing Cardiovascular: Negative Negative: Chest Pain Positive: Shortness Of Breath, Cough, Other - wheezing Gastrointestinal: Negative Genitourinary: Negative Musculoskeletal: Negative Skin: Negative Neurological: Negative Psychological: Normal All Other Systems Reviewed And Are Negative: Yes Physical Exam - Summary Physical Exam Summary: The patient is well-nourished in no acute distress and in no acute pain. The skin is warm and dry and skin color reflects adequate perfusion. HEENT: The head is normocephalic and atraumatic. The pupils are equal and reactive. The conjunctivae are clear and without drainage. Nares are patent and without drainage. Mouth reveals moist mucous membranes and the throat is without erythema and exudate. The external ears are intact. The ear canals are patent and without drainage. The tympanic membranes are intact. Neck is supple with full range of motion and non-tender. There are no carotid bruits. There is no neck vein distension. Respiratory: Chest is non-tender. Lungs are clear to auscultation and breath sounds are symmetrical and equal. Decreased breath sounds on the right. Wheezing and rhonchi on the left side. Cardiovascular: Heart is regular rate and rhythm. There is no murmur or rub auscultated. There is no peripheral edema and pulses are symmetrical and equal. Abdomen: The abdomen is soft and non-tender. There are normal bowel sounds heard in all four quadrants and there is no organomegaly palpated. Musculoskeletal: There is no back pain noted. Extremities are non-tender with full range of motion. There is good capillary refill. There is no peripheral edema or calf tenderness elicited. Neurological: Patient is alert and oriented to person, place and time. The patient has symmetrical motor strength in all four extremities. Cranial nerves are grossly intact. Deep tendon reflexes are symmetrical and equal in all four extremities. Psychiatric: The patient has an appropriate affect and does not exhibit any anxiety or depression. Triage Information Reviewed: Yes Vital Signs On Initial Exam: Initial Vitals Temp Pulse Resp BP Pulse Ox 98 F 95 22 133/71 95 08/25/16 11:56 08/25/16 11:56 08/25/16 11:56 08/25/16 11:56 08/25/16 11:56 Vital Signs Reviewed: Yes Diagnostics - Vital Signs Vital Signs Temp Pulse Resp BP Pulse Ox 08/25/16 11:58 98 16 133/71 95 08/25/16 11:56 98 F 95 22 133/71 95 - Laboratory Lab Results: Lab Results 08/25/16 08/25/16 08/25/16 Range/Units 12:10 12:10 12:10 WBC 8.6 (3.5-10.8) 10^3/ul RBC 4.41 (4.0-5.4) 10^6/ul Hgb 13.3 (12.0-16.0) g/dl Hct 40 (35-47) % MCV 91 (80-97) fL MCH 30 (27-31) pg MCHC 33 (31-36) g/dl RDW 20 H (10.5-15) % Plt Count 226 (150-450) 10^3/ul MPV 8 (7.4-10.4) um3 Neut % (Auto) 86.4 H (38-83) % Lymph % (Auto) 4.6 L (25-47) % Brantley % (Auto) 7.7 (1-9) % Eos % (Auto) 0.5 (0-6) % Baso % (Auto) 0.8 (0-2) % Absolute Neuts (auto) 7.4 (1.5-7.7) 10^3/ul Absolute Lymphs (auto) 0.4 L (1.0-4.8) 10^3/ul Absolute Monos (auto) 0.7 (0-0.8) 10^3/ul Absolute Eos (auto) 0 (0-0.6) 10^3/ul Absolute Basos (auto) 0.1 (0-0.2) 10^3/ul Absolute Nucleated RBC 0.01 10^3/ul Nucleated RBC % 0.1 INR (Anticoag Therapy) (0.89-1.11) Sodium 136 (133-145) mmol/L Potassium 3.6 (3.5-5.0) mmol/L Chloride 101 (101-111) mmol/L Carbon Dioxide 22 (22-32) mmol/L Anion Gap 13 H (2-11) mmol/L BUN 8 (6-24) mg/dL Creatinine 0.54 (0.51-0.95) mg/dL Est GFR ( Amer) 146.2 (>60) Est GFR (Non-Af Amer) 113.7 (>60) BUN/Creatinine Ratio 14.8 (8-20) Glucose 137 H (70-100) mg/dL Lactic Acid 4.6 H* (0.5-2.0) mmol/L Calcium 8.1 L (8.6-10.3) mg/dL Total Bilirubin 1.10 H (0.2-1.0) mg/dL AST 56 H (13-39) U/L ALT 35 (7-52) U/L Alkaline Phosphatase 252 H (34-104) U/L Troponin I 0.00 (<0.04) ng/mL B-Natriuretic Peptide ( - 100) pg/mL Total Protein 5.4 L (6.4-8.9) g/dL Albumin 3.0 L (3.2-5.2) g/dL Globulin 2.4 (2-4) g/dL Albumin/Globulin Ratio 1.3 (1-3) 08/25/16 08/25/16 Range/Units 12:10 12:10 WBC (3.5-10.8) 10^3/ul RBC (4.0-5.4) 10^6/ul Hgb (12.0-16.0) g/dl Hct (35-47) % MCV (80-97) fL MCH (27-31) pg MCHC (31-36) g/dl RDW (10.5-15) % Plt Count (150-450) 10^3/ul MPV (7.4-10.4) um3 Neut % (Auto) (38-83) % Lymph % (Auto) (25-47) % Brantley % (Auto) (1-9) % Eos % (Auto) (0-6) % Baso % (Auto) (0-2) % Absolute Neuts (auto) (1.5-7.7) 10^3/ul Absolute Lymphs (auto) (1.0-4.8) 10^3/ul Absolute Monos (auto) (0-0.8) 10^3/ul Absolute Eos (auto) (0-0.6) 10^3/ul Absolute Basos (auto) (0-0.2) 10^3/ul Absolute Nucleated RBC 10^3/ul Nucleated RBC % INR (Anticoag Therapy) 0.96 (0.89-1.11) Sodium (133-145) mmol/L Potassium (3.5-5.0) mmol/L Chloride (101-111) mmol/L Carbon Dioxide (22-32) mmol/L Anion Gap (2-11) mmol/L BUN (6-24) mg/dL Creatinine (0.51-0.95) mg/dL Est GFR ( Amer) (>60) Est GFR (Non-Af Amer) (>60) BUN/Creatinine Ratio (8-20) Glucose (70-100) mg/dL Lactic Acid (0.5-2.0) mmol/L Calcium (8.6-10.3) mg/dL Total Bilirubin (0.2-1.0) mg/dL AST (13-39) U/L ALT (7-52) U/L Alkaline Phosphatase (34-104) U/L Troponin I (<0.04) ng/mL B-Natriuretic Peptide 24 ( - 100) pg/mL Total Protein (6.4-8.9) g/dL Albumin (3.2-5.2) g/dL Globulin (2-4) g/dL Albumin/Globulin Ratio (1-3) Result Diagrams: 08/25/16 12:10 08/25/16 12:10 Lab Statement: Any lab studies that have been ordered have been reviewed, and results considered in the medical decision making process. - Radiology CXR Xray Interpretation: Positive (See Comments) - IMPRESSION: Stigmata of obstructive lung disease. No acute pulmonary or cardiac process evident. Radiology Interpretation Completed By: Radiologist - EKG 11:59 ST Segment: Non-Specific - changes EKG Interpretation: NSR, old anterior wall NH, no STEMI, LEFT AXIS, poor airway progression Re-Evaluation - Re-Evaluation First Eval Re-Evaluation Time: 13:45 - discussed EKG, labs and plan for admission - patient agrees Disposition - Course Assessment/Plan: 66 year old female presents with SOB starting this morning at 01:30. She states that it woke her from sleep. She also wheezing, cough, and trouble swallowing- now slightly improved from this morning. She also reports rhinorrhea but states that it is normal for her in the morning. She denies any fever, chills, or chest pain. Laying down makes her symptoms worse and nebulizer improved her symptoms. PMHx of asthma, COPD, and HTN. EKG - NSR, old anterior wall NH, no STEMI, LEFT AXIS, POOR AIRWAY PROGRESSION. LABS: LACTIC 4.6. ALK. PHOS. 252. TROP 0.00. CXR - IMPRESSION: Stigmata of obstructive lung disease. No acute pulmonary or cardiac process evident. Consult Dr. Tracy on admission - agrees to admit. Dx: ACUTE DYSPNEA, COPD - Differential Dx - Cardiopulmonary Differential Diagnoses - Cardiopulmonary: Acute Coronary, CAD, Cardiomyopathy, CHF, Exacerbation Of COPD, Lower Resp Infection, Pulmonary Embolism - Diagnoses Provider Diagnoses: Acute dyspnea, COPD (chronic obstructive pulmonary disease) - Physician Notifications Discussed Care Of Patient With: Dr. Tracy Time Discussed With Above Provider: 13:53 - agrees to admit - Critical Care Time Critical Care Time: 30-74 min - 30 minutes Discharge - Discharge Plan Condition: Stable Disposition: ADMITTED TO [facility] documentation as recorded by the Adalid neil Auryana accurately reflects the service I personally performed and the decisions made by me, Kobe Pennington MD.
--- NOTE | 2016-08-25 18:12 | HP ---
ADMISSION HISTORY AND PHYSICAL: DATE OF ADMISSION: 08/25/16 PRIMARY CARE PROVIDER: Dr. Lopez. HEALTHCARE PROXY: Her son, Esvin Cm. CODE STATUS: Full. SOURCE OF INFORMATION: History obtained from interview with the patient, review of past medical records. RELIABILITY OF THE PATIENT: Poor. RELIABILITY OF THE RECORDS: Excellent. CHIEF COMPLAINT: Sore throat and shortness of breath. HISTORY OF PRESENT ILLNESS: This is a 66-year-old female, past medical history including COPD as well as DVT and PE, not on anticoagulation, who had been in her usual state of health, active. Activity usually involves walking her dogs until approximately 1 week prior, started to notice a sensation that something was caught in her throat. She had intermittent vomiting over the last week although was unable to characterize the frequency or timing of vomiting prior to this presentation. The night prior to admission, she woke up at approximately 1:30 a.m. and had difficulty swallowing and was associated with difficulty breathing. Today, prior to presenting, she was sitting in a chair talking to her friend. She had increasing shortness of breath. She used her friend's nebulizer with some relief. However, secondary to increased shortness of breath activated EMS and proceeded to the hospital. She notes that in conjunction with the shortness of breath she did have some tightness in her chest. Denies any wheezing. She presented over the last week in conjunction with her sore throat and increasing shortness of breath, it was more difficult to walk her dog; however, she was able to complete the same distance without any decreasing exercise tolerance. She has no orthopnea. No PND. She notes 8- pound weight gain over the winter with increased lower extremity swelling, "I don't keep my legs up." She notes fevers at night that are subjective since May as well as cough since May. When seen by this author, she had received albuterol nebulizers, was currently receiving Levaquin, and was receiving normal saline. She reports since presenting to the emergency room she feels better although not back to her baseline. She currently denies any shortness of breath or chest pain. PAST MEDICAL HISTORY: Includes: 1. History of Hodgkin's lymphoma with no evidence of disease and history of breast cancer, neither of these received radiation to the chest according to the patient. 2. Hypertension. 3. Hyperlipidemia. 4. COPD. 5. DVT/PE. 6. Chronic lower back pain. 7. Right shoulder fracture and a left wrist fracture, managed nonoperatively. 8. Left femoral fracture. 9. Right ORIF of her foot. 10. Right knee surgery. 11. Bilateral mastectomy. 12. Gastric bypass. 13. Hysterectomy. HOME MEDICATIONS: Reviewed with the patient. She confirms the following list, although it seems its validity is in question. 1. Oxycodone 5 to 10 mg every 4 to 6 hours confirmed with I-STOP. 2. Venlafaxine 50 mg 3 times a day. 3. Carafate 1 g 4 times a day. 4. Protonix 40 mg daily. 5. Oxymorphone 10 mg twice daily, confirmed with I-STOP. 6. Multivitamins daily. 7. Singulair 10 mg daily. 8. Metoprolol tartrate 25 mg twice daily. 9. Lisinopril 30 mg daily. 10. Gaviscon 2 tabs every 6 hours as needed for indigestion. 11. Advair 500/50 one puff twice daily. 12. Flonase 1 spray both nares daily. 13. Ferrous sulfate 325 mg daily. 14. Docusate 100 mg twice daily. 15. Diclofenac patch 1.35% one patch topically twice daily. 16. Vitamin B12 500 mcg daily. 17. Vitamin D3 2000 units daily. 18. Alpha lipoic acid 200 mg daily. 19. Albuterol 2 puffs inhaled every 4 hours as needed for shortness of breath or wheeze. ALLERGIES: PENICILLIN and INFLUENZA VACCINE. FAMILY HISTORY: Sister had heart disease. No history of CVA or thrombosis. SOCIAL HISTORY: Denies any tobacco. Approximately 1 alcoholic drink per week. No drugs. Lives alone. She is retired. 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 REVIEW OF SYSTEMS: Include sore throat, nausea and vomiting intermittently, shortness of breath, wheezing over the last week, weight gain, subjective fevers , cough, tightness in her chest. Otherwise, all other systems negative. PHYSICAL EXAMINATION GENERAL: Sitting up in the bed, interactive, pleasant, in no apparent distress. VITAL SIGNS: When seen by this author ,151/105, heart rate is 114, respiratory rate is 18, 95% on room air, T-max in the emergency room is 98 degrees Fahrenheit. HEENT: Oropharynx is clear. She has moist mucous membranes. Sclerae anicteric. NECK: Nonelevated JVD and no supraclavicular or cervical lymphadenopathy. LUNGS: Clear with faint rales in the right base. HEART: Rate is tachycardic without murmurs, rubs, or gallops. Regular. ABDOMEN: Soft, nontender, nondistended. EXTREMITIES: Warm and well perfused without clubbing, cyanosis, or edema. Good skin turgor. Less than 2-second capillary refill. NEUROLOGIC: She is alert and oriented x3. Her cranial nerves II through XII are intact. She has no apparent agitation, anxiety, or depression. LABORATORY DATA/DIAGNOSTIC STUDIES: Labs are reviewed. Notable for lactic acid 4.6, total bilirubin 1.1, AST 56, ALT 35, alk phos 252. Troponin I 0.00. BNP 24. INR 0.96. Data reviewed. Chest x-ray, impression: Stigmata of obstructive lung disease. No acute pulmonary or cardiac process is evident. EKG: Sinus tachycardia, normal axis, prolonged QTc of 481, good R-wave progression. No ST or T-wave changes. Qs in aVF alone. ASSESSMENT AND PLAN: This is a 66-year-old female with past medical history as outlined above, presented to the hospital with increasing shortness of breath, cough, sore throat, improved with albuterol fluid and antibiotics. Shortness of breath: In the setting of lactic acidosis and tachycardia and history of DVT/PE, we will check CTA check now. It is notable that her tachycardia may be secondary to albuterol she received in the emergency room. Chronic obstructive pulmonary disease exacerbation is possible as well as asthma exacerbation given increased wheezing over the last week as well as a sore throat and transaminitis which may be indicative of a viral infection. She received 125 mg IV of prednisone in the emergency room. We will continue prednisone oral starting tomorrow. She is receiving Levaquin 750 mg now, we will continue q.24 hours. Given her lactic acidosis, we will discontinue tomorrow if no evidence of infection. Continue chronic obstructive pulmonary disease medications/inhaler as well as albuterol p.r.n. Currently on room air. Lactic acidosis suspect in the setting of hypoxemia in the setting of chronic obstructive pulmonary disease exacerbation versus potential pulmonary embolism as noted above. Bolus 2 L normal saline we will repeat lactic acid in 2 hours. Sore throat, suspect viral: Cepacol drops, ice chips, continue to monitor. Hypertension: Continue home medications without change. Pain: Continue oxymorphone as well as oxycodone p.r.n. Transaminitis: Mild elevation. No abdominal pain. We will repeat in the a.m. if remains elevated. Consider right upper quadrant ultrasound. DVT prophylaxis : Lovenox subcu. Code status is full. CC: Dr. Lopez; Dr. Hendrix; Dr. Art * [id number]/CPS #: [id number] [facility]
[2016-08-25] MEDS: Enoxaparin(*) 80 MG/0.8 ML SYR SUBCUT SCH (18:16)
[2016-08-25] MEDS: Sucralfate TAB* 1 GM PO SCH ×2 (18:16→20:50)
[2016-08-25] MEDS: Ondansetron INJ* 2 MG/ML VIAL IV PRN (19:48)
[2016-08-25] MEDS: oxyCODONE TAB* 5 MG TAB PO PRN (19:48)
[2016-08-25] MEDS: Docusate CAP* 100 MG PO SCH (20:50)
[2016-08-25] MEDS: Mometasone/Formoter 200/5 MDI INH SCH (20:54)
[2016-08-25] MEDS: Metoprolol Tartrate TAB* 25 MG PO SCH (21:09)
[2016-08-25] MEDS: Venlafaxine TAB (NF) 25 MG TAB PO SCH (21:11)
[2016-08-26] MEDS ORDERED: PROCHLORPERAZINE INJ 5 MG/ML 2 ML VIAL IV PRN (00:50)
[2016-08-26] MEDS: Ondansetron INJ* 2 MG/ML VIAL IV PRN ×2 (01:26→19:55)
[2016-08-26 01:47] LABS: Anion Gap 11 mmol/L (2-11); BUN/Creatinine Ratio 14.9 (8-20); Blood Urea Nitrogen 7 mg/dL (6-24); CO2 Carbon Dioxide 19 mmol/L (22-32); Calcium 7.3 mg/dL (8.6-10.3); Chloride 108 mmol/L (101-111); EGFR African American 171.6 (>60); EGFR Non-African American 133.4 (>60); Glucose 128 mg/dL (70-100); Sodium 138 mmol/L (133-145)
[2016-08-26] MEDS: oxyCODONE TAB* 5 MG TAB PO PRN ×3 (04:52→14:47)
[2016-08-26] MEDS: Enoxaparin(*) 80 MG/0.8 ML SYR SUBCUT SCH ×2 (04:53→17:08)
[2016-08-26 05:22] LABS: Hematocrit 36 % (35-47); Hemoglobin 12.1 g/dl (12.0-16.0); Mean Corpuscular HGB Conc 34 g/dl (31-36); Mean Corpuscular Hemoglobin 31 pg (27-31); Mean Corpuscular Volume 91 fL (80-97); Mean Platelet Volume 8 um3 (7.4-10.4); Red Blood Count 3.95 10^6/ul (4.0-5.4); Red Cell Distribution Width 20 % (10.5-15); White Blood Count 6.8 10^3/ul (3.5-10.8)
[2016-08-26 05:36] LABS: Albumin 2.6 g/dL (3.2-5.2); BUN/Creatinine Ratio 15.6 (8-20); Calcium 7.4 mg/dL (8.6-10.3); Direct Bilirubin 0.4 mg/dL (0.03-0.18); EGFR African American 180.4 (>60); EGFR Non-African American 140.3 (>60); Globulin 2.3 g/dL (2-4); Indirect Bilirubin 0.8 mg/dL (0.3-1.0); Potassium 3.9 mmol/L (3.5-5.0); Total Bilirubin 1.2 mg/dL (0.2-1.0); Total Protein 4.9 g/dL (6.4-8.9)
[2016-08-26 07:45] LABS: Alcohol < 10 mg/dL (<10)
[2016-08-26] MEDS: Mometasone/Formoter 200/5 MDI INH SCH ×2 (09:10→19:57)
[2016-08-26] MEDS: Montelukast Sodium TAB* 10 MG PO SCH (09:20)
[2016-08-26] MEDS: Omeprazole CAP* 20 MG PO SCH (09:20)
[2016-08-26] MEDS: predniSONE TAB* 20 MG PO SCH (09:20)
[2016-08-26] MEDS: Lisinopril TAB* 10 MG PO SCH (09:20)
[2016-08-26] MEDS: Docusate CAP* 100 MG PO SCH ×3 (09:20→20:00)
[2016-08-26] MEDS: Sucralfate TAB* 1 GM PO SCH ×4 (09:21→19:55)
[2016-08-26] MEDS: Metoprolol Tartrate TAB* 25 MG PO SCH ×2 (09:21→19:55)
[2016-08-26] MEDS: Cyanocobalamin TAB* 500 MCG PO SCH (09:21)
[2016-08-26] MEDS: Ferrous Sulfate TAB* 325 MG PO SCH (09:21)
[2016-08-26] MEDS: Venlafaxine TAB (NF) 25 MG TAB PO SCH ×3 (09:24→19:55)
[2016-08-26] MEDS: Fluticasone NASAL SPRAY 50MCG* 16 gm SPRAY BTL BOTH NARES SCH (09:36)
[2016-08-26] MEDS ORDERED: NS 0.9% 1000 ML* 1,000 ML IV SCH (14:15)
--- NOTE | 2016-08-26 14:15 | PN ---
Subjective Date of Service: 08/26/16 Interval History: No SOB, CP, LG, palps, No complaints Objective Active Medications: Acetaminophen (Tylenol Tab*) 650 mg PO Q4H PRN PRN Reason: FEVER/PAIN Albuterol (Ventolin 2.5 Mg/3 Ml Neb.Marya*) 2.5 mg INH [id number] AWAKE PRN PRN Reason: sob/wheezing Cyanocobalamin (Vitamin B12 Tab*) 500 mcg PO DAILY [facility] Last Admin: 08/26/16 09:21 Dose: 500 mcg Docusate Sodium (Colace Cap*) 100 mg PO BID [facility] Last Admin: 08/26/16 09:20 Dose: 100 mg Enoxaparin Sodium (Lovenox(*)) 65 mg SUBCUT Q12H [facility] Last Admin: 08/26/16 04:53 Dose: 65 mg Ferrous Sulfate (Ferrous Sulfate Tab*) 325 mg PO DAILY [facility] Last Admin: 08/26/16 09:21 Dose: Not Given Fluticasone Propionate (Flonase Nasal [place] 50mcg*) 1 spray BOTH NARES DAILY [facility] Last Admin: 08/26/16 09:36 Dose: Not Given Levofloxacin/Dextrose (Levaquin 750 Mg Ivpremix(*)) 750 mg in 150 mls @ 100 mls /hr IVPB Q24H [facility] Lisinopril (Prinivil Tab*) 30 mg PO DAILY [facility] Last Admin: 08/26/16 09:20 Dose: 30 mg Metoprolol Tartrate (Lopressor Tab*) 25 mg PO BID [facility] Last Admin: 08/26/16 09:21 Dose: 25 mg Mometasone Furoate/Formoterol Fumar (Dulera 200/5 Mdi*) 2 puff INH BID [facility] Last Admin: 08/26/16 09:10 Dose: 2 puff Montelukast Sodium (Singulair Tab*) 10 mg PO DAILY [facility] Last Admin: 08/26/16 09:20 Dose: 10 mg Omeprazole (Prilosec Cap*) 20 mg PO DAILY@0730 [facility] Last Admin: 08/26/16 09:20 Dose: 20 mg Ondansetron HCl (Zofran Inj*) 4 mg IV Q4H PRN PRN Reason: NAUSEA/VOMITING Last Admin: 08/26/16 01:26 Dose: 4 mg Oxycodone HCl (Roxycodone Tab*) 5 mg PO Q4H PRN PRN Reason: PAIN Last Admin: 08/26/16 09:32 Dose: 5 mg Prednisone (Deltasone Tab*) 40 mg PO DAILY [facility] Last Admin: 08/26/16 09:20 Dose: 40 mg Sucralfate (Carafate*) 1 gm PO QID ACHS [facility] Last Admin: 08/26/16 09:21 Dose: 1 gm Throat Lozenges (Chloraseptic Juana*) 1 juana PO Q1H PRN PRN Reason: SORE THROAT Last Admin: 08/26/16 09:32 Dose: 1 juana Venlafaxine HCl (Effexor Tab (Nf)) 50 mg PO TID [facility] Last Admin: 08/26/16 09:24 Dose: 50 mg Vital Signs 08/25/16 08/25/16 08/25/16 14:39 15:00 15:22 Temperature Pulse Rate 114 112 Respiratory 24 Rate Blood Pressure 151/105 140/77 (mmHg) O2 Sat by Pulse 95 98 Oximetry 08/25/16 08/25/16 08/25/16 16:14 19:27 19:48 Temperature 98.0 F 97.6 F Pulse Rate 117 115 Respiratory 24 16 20 Rate Blood Pressure 141/86 147/85 (mmHg) O2 Sat by Pulse 99 97 Oximetry 08/25/16 08/25/16 08/25/16 19:55 20:00 20:57 Temperature 98.0 F Pulse Rate 117 109 Respiratory 24 18 18 Rate Blood Pressure 141/86 (mmHg) O2 Sat by Pulse 99 98 Oximetry 08/25/16 08/25/16 08/26/16 21:48 23:54 04:52 Temperature 98.7 F Pulse Rate 102 Respiratory 20 16 16 Rate Blood Pressure 142/92 (mmHg) O2 Sat by Pulse 97 Oximetry 08/26/16 08/26/16 08/26/16 06:52 07:20 08:00 Temperature 98.2 F Pulse Rate 101 Respiratory 20 16 20 Rate Blood Pressure 150/100 (mmHg) O2 Sat by Pulse 99 Oximetry 08/26/16 08/26/16 09:10 09:32 Temperature Pulse Rate 104 Respiratory 15 20 Rate Blood Pressure (mmHg) O2 Sat by Pulse 98 Oximetry Oxygen Devices in Use Now: Nasal Cannula Appearance: NAD Eyes: No Scleral Icterus, PERRLA Ears/Nose/Mouth/Throat: Clear Oropharnyx, Mucous Membranes Moist Neck: NL Appearance and Movements; NL JVP, Trachea Midline Respiratory: Symmetrical Chest Expansion and Respiratory Effort, Clear to Auscultation Cardiovascular: NL Sounds; No Murmurs; No JVD, - - tachy Abdominal: NL Sounds; No Tenderness; No Distention, No Hepatosplenomegaly Lymphatic: No Cervical Adenopathy Extremities: No Edema, No Clubbing, Cyanosis Neurological: Alert and Oriented x 3 Result Diagrams: 08/26/16 04:42 08/26/16 04:42 Additional Lab and Data: Lab Results 08/25/16 08/25/16 08/25/16 Range/Units 12:10 12:10 12:10 WBC 8.6 (3.5-10.8) 10^3/ul RBC 4.41 (4.0-5.4) 10^6/ul Hgb 13.3 (12.0-16.0) g/dl Hct 40 (35-47) % MCV 91 (80-97) fL MCH 30 (27-31) pg MCHC 33 (31-36) g/dl RDW 20 H (10.5-15) % Plt Count 226 (150-450) 10^3/ul MPV 8 (7.4-10.4) um3 Neut % (Auto) 86.4 H (38-83) % Lymph % (Auto) 4.6 L (25-47) % [place] % (Auto) 7.7 (1-9) % Eos % (Auto) 0.5 (0-6) % Baso % (Auto) 0.8 (0-2) % Absolute Neuts (auto) 7.4 (1.5-7.7) 10^3/ul Absolute Lymphs (auto) 0.4 L (1.0-4.8) 10^3/ul Absolute Monos (auto) 0.7 (0-0.8) 10^3/ul Absolute Eos (auto) 0 (0-0.6) 10^3/ul Absolute Basos (auto) 0.1 (0-0.2) 10^3/ul Absolute Nucleated RBC 0.01 10^3/ul Nucleated RBC % 0.1 INR (Anticoag Therapy) (0.89-1.11) Sodium 136 (133-145) mmol/L Potassium 3.6 (3.5-5.0) mmol/L Chloride 101 (101-111) mmol/L Carbon Dioxide 22 (22-32) mmol/L Anion Gap 13 H (2-11) mmol/L BUN 8 (6-24) mg/dL Creatinine 0.54 (0.51-0.95) mg/dL Est GFR ( Amer) 146.2 (>60) Est GFR (Non-Af Amer) 113.7 (>60) BUN/Creatinine Ratio 14.8 (8-20) Glucose 137 H (70-100) mg/dL Lactic Acid 4.6 H* (0.5-2.0) mmol/L Calcium 8.1 L (8.6-10.3) mg/dL Total Bilirubin 1.10 H (0.2-1.0) mg/dL AST 56 H (13-39) U/L ALT 35 (7-52) U/L Alkaline Phosphatase 252 H (34-104) U/L Troponin I 0.00 (<0.04) ng/mL B-Natriuretic Peptide ( - 100) pg/mL Total Protein 5.4 L (6.4-8.9) g/dL Albumin 3.0 L (3.2-5.2) g/dL Globulin 2.4 (2-4) g/dL Albumin/Globulin Ratio 1.3 (1-3) 08/25/16 08/25/16 Range/Units 12:10 12:10 WBC (3.5-10.8) 10^3/ul RBC (4.0-5.4) 10^6/ul Hgb (12.0-16.0) g/dl Hct (35-47) % MCV (80-97) fL MCH (27-31) pg MCHC (31-36) g/dl RDW (10.5-15) % Plt Count (150-450) 10^3/ul MPV (7.4-10.4) um3 Neut % (Auto) (38-83) % Lymph % (Auto) (25-47) % [place] % (Auto) (1-9) % Eos % (Auto) (0-6) % Baso % (Auto) (0-2) % Absolute Neuts (auto) (1.5-7.7) 10^3/ul Absolute Lymphs (auto) (1.0-4.8) 10^3/ul Absolute Monos (auto) (0-0.8) 10^3/ul Absolute Eos (auto) (0-0.6) 10^3/ul Absolute Basos (auto) (0-0.2) 10^3/ul Absolute Nucleated RBC 10^3/ul Nucleated RBC % INR (Anticoag Therapy) 0.96 (0.89-1.11) Sodium (133-145) mmol/L Potassium (3.5-5.0) mmol/L Chloride (101-111) mmol/L Carbon Dioxide (22-32) mmol/L Anion Gap (2-11) mmol/L BUN (6-24) mg/dL Creatinine (0.51-0.95) mg/dL Est GFR ( Amer) (>60) Est GFR (Non-Af Amer) (>60) BUN/Creatinine Ratio (8-20) Glucose (70-100) mg/dL Lactic Acid (0.5-2.0) mmol/L Calcium (8.6-10.3) mg/dL Total Bilirubin (0.2-1.0) mg/dL AST (13-39) U/L ALT (7-52) U/L Alkaline Phosphatase (34-104) U/L Troponin I (<0.04) ng/mL B-Natriuretic Peptide 24 ( - 100) pg/mL Total Protein (6.4-8.9) g/dL Albumin (3.2-5.2) g/dL Globulin (2-4) g/dL Albumin/Globulin Ratio (1-3) Assess/Plan/Problems-Billing Assessment: 66 yo F h/o hodgkins lymphoma, DVT/PE complicated by GIB, COPD p/w SOB found with PE - Patient Problems (1) Pulmonary embolism Comment: c/w lovenox BID Has had elevated factor Xa lvls on lovenox in past appreciate Heme/onc assistance Will check Factor Xa activity 4 hrs after 4th dose of lovenox tomorrow Plan on d/c on lovenox (difficult time with INR control in past, want reversible agent 2/2 h/o GID ie not NOACs). (2) Lactic acid acidosis Comment: Unclear etiology. No fluid boluses between last 2 checks and value resolved c/w 1L NS (3) HTN (hypertension) Comment: c/w home medications (4) DVT prophylaxis Comment: lovenox
[2016-08-26] MEDS ORDERED: Levofloxacin 750 MG IVPREMIX(* 750 MG/150 ML BAG IVPB SCH (15:00)
--- NOTE | 2016-08-26 21:00 | CONS ---
CC: Dr. Lopez; Dr. Art; Dr. Johnston MEDICAL ONCOLOGY/HEMATOLOGY CONSULTATION NOTE: DATE OF CONSULT: 08/26/16 REASON FOR CONSULT: History of breast cancer, history of lymphocyte- predominant Hodgkin's lymphoma, history of multiple prior thromboembolic events. Now with shortness of breath and new PE. HISTORY OF PRESENT ILLNESS: Radha Puente is a 66-year-old female, whose past history includes items noted above, this will be detailed below, breast cancer in 2006, lymphocyte-treated Hodgkin's in 2013, pulmonary emboli, deep vein thrombosis, multiple bleeds. She has also had multiple orthopedic procedures and fractures. The patient reports that she has been more short of breath over the past several months. She has had pain off and on in her chest over this period of time. It has been mostly pain and especially the shortness of breath has been worsening. She has been using her own inhalers and has tried a friend's nebulizer, which has been only minimally helpful. She reports vomiting, but on closer questioning, is really bringing up more clear liquids from her stomach. This has been occurring about one time per week over the past several months. She reports some difficulty swallowing, which she feels is better on taking in bags of ice per day. She has been doing this for the past 8 months and also had done this at the time of her previous diagnosis with Hodgkin's lymphoma. She reports night sweats 2 to 3 times per week and has to change her bed clothes and at times her sheets since May of 2016. She reports the night sweats are even worse now than they were when she had the original diagnosis of her lymphoma. Because of her breathing problems, she was placed by her prior primary care physician, Dr. Obando, on steroids in May of 2016. She reports that she took prednisone for 2 to 3 months and stopped 1 month ago. She is unsure as to the dosing. She started seeing Dr. Lopez about 1 to 2 months ago, and was tapered off this medication. She reports that she has gained approximately 12 pounds in total since the of the year, much this while on prednisone. She has also developed some swelling in the left leg since her surgery of April of 2016, which is somewhat better with elevation. Over the past several days, she has noted that her breathing has gotten even worse. She does not have any orthopnea. She denies any fevers, sweats, or chills or any productive cough. She continues to note some swelling especially in her left lower extremity as noted above. She presented to the emergency room where she received albuterol nebulizer, Levaquin, and IV fluids. CTA was performed on 08/25/16 at 2:50 in the afternoon. This revealed fourth order and distal right-sided pulmonary emboli with several foci, which are in the distribution of the prior emboli. This appears to be evidence for a new pulmonary emboli on my discussion with the covering radiologist today. There is no report of any adenopathy on the CT scan, but on careful review, there are several lymph nodes in the left axilla, the largest one of which to my measurement is a 15 x 11 mm and another is 8 x 11 mm. These both appeared to be slightly larger than on the prior imaging of this area in December 2013 on PET scan. The patient was admitted to the hospital by Dr. Rodriguez, and started on Lovenox. She is seen now in consultation with questions about her lymphoma and about dosing for her anticoagulation. On discussion with the patient today , she is somewhat of a difficult historian, but does seem to have most of her details in order, but has a number of things in her complicated history, which she does not remember. Since admission, she does feel somewhat better especially in terms of her breathing. PAST MEDICAL HISTORY: Complicated and will be detailed essentially in chronologic order. 1. History of GE reflux disease and obesity and status post gastric bypass surgery in 2003, done with a Vy-en-Y procedure. 2. Hysterectomy, 2003, for menorrhagia with ovaries and uterus both removed. 3. Status post orthopedic surgery with screws and plate in her left foot, occurring before 2006. 4. Breast cancer, 2006, treated by Dr. Gonzalez in [facility], in [place], [place]. Bilateral mastectomy including contralateral prophylactic mastectomy with implant reconstruction, took chemotherapy, which reported causes lots of nausea and vomiting, was "very poorly tolerated" and caused alopecia, it is likely that was Adriamycin based. She subsequently took hormonal therapies for 5 years, likely tamoxifen finishing in 2011. 5. 2014, developed shortness of breath and panic attacks. These occurred over several months and also were associated with chewing ice, severe thirst, and weight gain. CT angiogram was performed in [place] that was negative for pulmonary emboli, but revealed lymphadenopathy in the left axilla and some small adenopathy in the abdomen. Biopsy of the left axillary lymph node revealed lymphocyte- predominant Hodgkin's lymphoma. She was seen in consultation by Dr. Johnston of our office initially on 06/12/13. Workup included a PET scan, which revealed an 8 x 7.6 cm lobulated mass in the left axilla, which did not have much metabolic activity. It should be noted that she did have significant bleeding at the time of her lymph node biopsy. Lymphadenopathy was also noted near this mass in the left axilla measuring up to 2.6 cm and was mildly hypermetabolic with SUV of 3. In the abdomen, there were lymph nodes up to 10 mm and some of these had SUV values up to 3.1. These included lymph nodes in the gastrohepatic ligament, periaortic lymph nodes on the left, and ommons and external iliac lymph nodes. Her bone marrow aspirate and biopsy was negative. 6. In the midst of workup for her newly diagnosed Hodgkin's lymphoma, the patient was hospitalized with a pulmonary embolism on 06/25/13. She was treated initially with Lovenox and subsequently switched to Xarelto, which she remained on until running out of medication in November of 2013. 7. Treatment of lymphocyte-predominant Hodgkin's lymphoma with Rituxan weekly x4 from 07/15/13 through 08/19/13 with couple of weeks missed in the interim. This was reasonably well tolerated, subsequent PET scan performed at the end of therapy and again in December of 2013. The large mass in left axilla had resolved. The adenopathy was smaller and all SUV values were under 2. She has been followed for this since without further therapy.or scans 8. November of 2013, the patient ran out of Xarelto and developed a very large left leg DVT involving the common and external iliacs, perineal, and the posterior tibial vein. She had lack of sensation in her foot and was transferred up to [facility] where she had tPA and also thrombectomy. On a venogram 36 hours later, no clot was seen. She was treated with heparin and switched over to Lovenox at 90 mg b.i.d. She developed a very large hematoma in the left leg and was found to have a supratherapeutic level of factor Xa level at 1.88. Her Lovenox was held and then dose reduced to 50 mg b.i.d. per office note; however, on reviewing Dr. Portillo's hospital admission note from 02/21/14 it is unclear what dose she was exactly taking. Subsequent levels after 5 doses of 50 bid was 0.66. In February of 2014, she had levels as low as 0.2 and 0.3, done after the GI bleed described below. 9. February of 2014, the patient after stopping her Carafate and potentially while taking NSAIDs, developed melena and anemia, was found to have a large ulcer at the Vy-en-Y anastomotic site. This was not actively bleeding at the time, but her hemoglobin had fallen as low as 9.6. Subsequent repeat EGD was unremarkable in March of 2014. She was noted to be on Lovenox 50 mg b.i.d. in March of 2014 and was switched subsequently to Xarelto. 10. Pelvic fracture in 2013, treated with physical therapy. 11. GI bleed with vomiting of blood while on Xarelto 20 mg daily, was found to have on EGD, gastrojejunal anastomosis ulcer. She was not actively bleeding, but she did drop her hemoglobin down from 12.2 to 7.5 and required 2 units of packed red blood cells. After that, she remained off anticoagulation. 12. Knee surgery, 2014, late in the year at [facility] in [place], [place], no bleeding. At that point, she was off anticoagulation. 13. May 2015, admitted to [facility] and transferred to [facility] in [place]. She had fallen on the ice, had a humerus fracture, but also an upper GI bleed. Six units of blood were given between [place] and [place]. EGD did not reveal any ulceration as the cause for her bleeding. 14. April 2016, open reduction internal fixation of her left hip fracture. This was done by Dr. Naylor here at [facility]. Eight days postoperatively, she had some pain and swelling in her left leg and a Doppler study was unremarkable. 15. History of panic attacks. 16. History of depression. 17. History of hypertension. 18. History of asthma and reported COPD, although never a smoker. PAST SURGICAL HISTORY: None. HOME MEDICATIONS: 1. Oxycodone 5 to 10 mg q.4 to 6 hours p.r.n. pain given mostly for back and leg pain. 2. Opana/oxymorphone 10 mg b.i.d. 3. Venlafaxine 50 mg t.i.d. 4. Carafate 1 g four times a day. 5. Protonix 40 mg daily. 6. Singulair 10 mg daily. 7. Metoprolol 25 mg b.i.d. 8. Lisinopril 30 mg daily. 9. Gaviscon 2 tablets every 6 hours p.r.n. indigestion. 10. Advair 50/500 one puff b.i.d. 11. Flonase 1 spray daily. 12. Ferrous sulfate 325 mg daily. 13. Docusate 100 mg b.i.d. 14. Diclofenac patch 1.35% one patch topically b.i.d. 15. Vitamin B12 500 mcg daily. 16. Vitamin D3 2000 units daily. 17. Alpha-lipoic acid 200 mg daily. 18. Albuterol 2 puffs q.4 hours p.r.n. ALLERGIES: To PENICILLIN. FAMILY HISTORY: Sister with heart disease, sister with breast cancer in early 50's. No family history of hypercoagulable state. SOCIAL HISTORY: The patient has never been a smoker. Rare alcohol. She lives alone. 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 Although she lives alone, the grandson of one of her friends, who she reports as being mildly retarded, does come and stay with her in a room in her apartment and helps out; he is 20 years old. REVIEW OF SYSTEMS: As discussed above. As noted, she has had approximately a 12 -pound weight gain recently. She has had multiple GI and respiratory symptoms as noted above. No recent signs of infection. Pain is chronic and unchanged. No significant neuropathy or neurologic symptoms. Does have occasional diarrhea. Otherwise, review of systems is negative except as discussed above. PHYSICAL EXAM: A 66-year-old female in no acute distress. Sitting in bed. Vital Signs: Blood pressure 150/100, pulse 101, afebrile. HEENT: PERRL, EOMI. No erythema or exudates. No palpable cervical, supraclavicular, axillary , or inguinal adenopathy. Lungs: Clear. Heart: Regular rate and rhythm, slightly tachycardic, without murmurs, rubs, or gallops. Abdomen: Soft, nontender without masses or organomegaly. Extremities: No clubbing, cyanosis, or edema. Neurologic exam: Without focal deficits. DIAGNOSTIC STUDIES/LAB DATA: CBC with a white count of 6800, hematocrit 36, hemoglobin 12.1, MCV of 90, platelet count of 165,000, differential unremarkable. Chemistry studies: Sodium 139, potassium 3.9, chloride 108, bicarb 22, BUN 7, creatinine 0.45, glucose 103, calcium 7.4 with an albumen of 2.6. LFTs otherwise unremarkable. CT scan as discussed above. IMPRESSION AND PLAN: Pulmonary emboli seen in the right side. This appears to be acute and certainly to some extent would fit her symptoms. There is no evidence for infection. She will need to be on anticoagulation. This is extremely complicated as she has had previous pulmonary embolism, previous massive left leg deep vein thrombosis requiring thrombectomy, and also has had gastrointestinal bleeds on three occasions within the past several years. Two of these while on anticoagulation and one off anticoagulation. Gastrointestinal bleed on Lovenox in February 2014, gastrointestinal bleed on Xarelto in December of 2014, and gastrointestinal bleed off anticoagulation in May of 2015. She has, at one point in the past, been placed on Coumadin by her primary care physician at the time Dr. Obando Patient reports her levels were extremely difficult to regulate, needed to be checked 2 to 3 times per week and dose does constantly vary, and does not want to be back on Coumadin. On Lovenox, she had supratherapeutic levels when on apparently appropriate dosing with level as high as 1.88 and with this then developed severe hematomas in the leg. Subsequent to this, she had a gastrointestinal bleed when her factor Xa level appeared to be therapeutic at 0.66 on Lovenox. Lovenox is therefore somewhat problematic, but I believe, it could be used as long as she is followed with the factor Xa levels. I would recommend obtaining factor Xa level approximately 4 hours after her 5th dose. Alternatively, one could use other agents such as Coumadin if she will allow or one could also consider Pradaxa as this is an agent she has not seen before and one which now does have an acceptable reversible agent. It is a direct thrombin inhibitor. If one were to use Pradaxa; however, she first will need 5 to 10 days of Lovenox. We can discuss this with Dr. Johnston as either way she would be on Lovenox as initial therapy. History of lymphocyte-predominant Hodgkin's lymphoma. Interestingly, her current symptoms of night sweats, chewing on bags of ice, respiratory symptoms are all similar to what she had at that time. While she does have some mild adenopathy in the left axilla, this is markedly less than what seen there in 2014. Her initial stage of Hodgkin's lymphoma is unclear; she was either stage IB, which will be an unusual stage, having B symptoms in setting of only localized disease or would be stage IIIB disease if the mildly hypermetabolic activity in the abdomen were to have been involvement for sure. Given her other medical issues, she was treated at time with just Rituxan. Use of Rituxan 375 mg/M2 weekly x4 in previous reports has led to 100% overall response rate and 67% complete response rate in this type of lymphocyte- predominant Hodgkin's lymphoma. However, the estimated progression free survival at 5 years is less than optimal. Without maintenance Rituxan, was only 39% in one small study. Survival rate, however, is exceedingly high at 96 % at 5 years. The median time to transformation to a more aggressive lymphoma subtype, which occurred in about quarter of patients was also at about 5 years. She is currently 3 years out. It is unclear if she were to have recurrence of lymphoma whether this would still be Hodgkin's, whether she could have transformed to a non-Hodgkin's lymphoma. Given that she has previously had chemotherapy for her breast cancer and presumably had Adriamycin treatment, it would be more difficult than in a patient without this prior history. It would be useful as an outpatient to obtain a PET scan to look to see if there is hypermetabolic activity either with small lymph nodes, which are currently present in the axilla or anywhere in the abdomen and pelvis. Chewing on ice sounds like pica, she was iron deficient at the time of her original lymphoma diagnosis back in 2013, this has not been checked since, I would recommend checking iron levels. In summary, I would recommend that she stay on the Lovenox for now, that we obtain factor Xa levels 4 hours after the fifth dose. She needs to be watched carefully both for further clotting and for further bleeding. I would recommend obtaining a PET scan as an outpatient to look for any potential recurrence of her lymphocyte- predominant lymphoma. I would recommend obtaining iron levels. [id number]/[facility] #: [id number] [facility]
[2016-08-27] MEDS: oxyCODONE TAB* 5 MG TAB PO PRN ×2 (04:17→11:59)
[2016-08-27] MEDS: Enoxaparin(*) 80 MG/0.8 ML SYR SUBCUT SCH (04:17)
[2016-08-27 06:33] LABS: Ferritin 104.9 ng/mL (11-307)
[2016-08-27] MEDS: Venlafaxine TAB (NF) 25 MG TAB PO SCH (08:31)
[2016-08-27] MEDS: Sucralfate TAB* 1 GM PO SCH ×2 (08:32→12:00)
[2016-08-27] MEDS: Cyanocobalamin TAB* 500 MCG PO SCH (08:32)
[2016-08-27] MEDS: Docusate CAP* 100 MG PO SCH (08:32)
[2016-08-27] MEDS: Ferrous Sulfate TAB* 325 MG PO SCH (08:33)
[2016-08-27] MEDS: Montelukast Sodium TAB* 10 MG PO SCH (08:33)
[2016-08-27] MEDS: Lisinopril TAB* 10 MG PO SCH (08:33)
[2016-08-27] MEDS: Metoprolol Tartrate TAB* 25 MG PO SCH (08:33)
[2016-08-27] MEDS: predniSONE TAB* 20 MG PO SCH (08:34)
[2016-08-27] MEDS: Omeprazole CAP* 20 MG PO SCH (08:34)
[2016-08-27] MEDS: Fluticasone NASAL SPRAY 50MCG* 16 gm SPRAY BTL BOTH NARES SCH (08:35)
[2016-08-27 09:49] VITALS: BP 147/90
[2016-08-27] MEDS: Mometasone/Formoter 200/5 MDI INH SCH (09:51)
[2016-08-27] MEDS: Ondansetron INJ* 2 MG/ML VIAL IV PRN (10:46)
--- NOTE | 2016-08-28 03:39 | DS ---
DISCHARGE SUMMARY: DATE OF ADMISSION: 08/25/16 DATE OF DISCHARGE: 08/27/16 PRIMARY CARE PROVIDER: Dr. Lopez. ONCOLOGIST/CREATIVE MANAGER: Rony Johnston MD PRIMARY DIAGNOSIS: Pulmonary embolism. SECONDARY DIAGNOSES: Include: 1. History of Hodgkin lymphoma. 2. Hypertension. 3. Hyperlipidemia. 4. History of chronic obstructive pulmonary disease. 5. History of prior deep venous thrombosis and pulmonary embolism. 6. History of multiple gastrointestinal bleeds. 7. History of gastrojejunal anastomotic ulcer. 8. History of panic attacks. 9. Lactic acidosis. MEDICATIONS ON DISCHARGE: 1. Carafate 1 g 4 times daily. 2. Flonase 1 spray both nares daily. 3. Alpha lipoic acid 200 mg daily. 4. Gaviscon chew tab 1 tab every 6 hours as needed. 5. Vitamin B12 500 mcg daily. 6. Albuterol HFA 2 puffs every 4 hours as needed. 7. Multivitamin with mineral 1 tab daily. 8. Vitamin D3 2000 units daily. 9. Advair 500/5 mcg 1 puff twice daily. 10. Docusate 100 mg twice daily. 11. Ferrous sulfate 325 mg daily. 12. Diclofenac 1.3% patch twice daily as needed. 13. Lisinopril 30 mg daily. 14. Oxymorphone 10 mg twice daily. 15. Montelukast 10 mg daily. 16. Metoprolol tartrate 25 mg twice daily. 17. Oxycodone 5 to 10 mg every 4 to 6 hours as needed for pain. 18. Protonix 40 mg daily. 19. Effexor 50 mg 3 times a day. 20. Lovenox 70 mg twice daily. PERTINENT LABORATORY DATA: Lactic acidosis peaked at 8, decreased at 1.9 without intervention during the course of the hospital stay. Iron 85, TIBC 252 , percent sat 34, and ferritin 104. CONSULTATIONS OBTAINED DURING HOSPITAL STAY: Hematology/Oncology with Dr. Skelton. Please see his note for complete details surrounding the patient's previous diagnosis and treatment of her lymphoma as well as additional details surrounding timing of anticoagulation and GI bleeding and previous events. HISTORY OF PRESENT ILLNESS AND HOSPITAL COURSE: A 66-year-old female with past medical history as outlined in the history of present illness on the day of admission presented to the hospital with increasing shortness of breath, who was found on CTA of her chest and thorax to have acute superimposed upon chronic pulmonary emboli. She was started on Lovenox. Decision was not made to bridge her with Coumadin as she had very difficult time in the past controlled Coumadin levels. Additionally, she has had recurrent bleeding on multiple agents and so, she would not be a candidate for other novel anticoagulants, although Pradaxa, which still remain an option. Of note, she has also had trouble regulating dose of Lovenox and factor Xa levels have been followed in the past. The patient had factor Xa level drawn 4 hours after the fourth dose of Lovenox during her hospital stay here, where she had no bleeding while on anticoagulation for 48 hours. She was able to ambulate around the unit multiple times without shortness of breath or any chest pain. She overall had improved back to her baseline. The patient did indicate as she had been having frequent night sweats for the last several months and Dr. Skelton reviewed CAT scan and did note very small lymph nodes in her axilla and thought she would warrant for a followup PET scan as an outpatient. At followup, please; 1. Follow factor Xa level, adjust dose of Lovenox as necessary. 2. Consider PET scan as recommended by oncological service. 3. Please ensure at followup, the patient follows up with Dr. Johnston. 4. No other specific labs or vitals that need followup. Reasons to return to the hospital including, but not limited to, recurrent or worsening symptoms including shortness of breath, chest pain, lightheadedness, loss of consciousness or near loss of consciousness, bleeding from any source, or difficulty obtaining or tolerating medications were discussed with the patient; she acknowledged understanding. TIME SPENT: Greater than 45 minutes was spent on discharge of this patient with greater than half the time spent [id number] with the patient. CC: Dr. Lopez; Dr. Johnston * [id number]/[facility] #: [id number] [facility]
== END 2016-08-27 13:40 | disposition home or self-care (01) | DRG 134 ==
LOC: ED 11:51 → MED 14:07 → OBSVTOIN 08-26 14:17
PROVIDERS: ADMIT Internal Medicine; ATTEND Internal Medicine
DX: I26.99 Other pulmonary embolism without acute cor pulmonale (principal); E87.2 Acidosis; J44.9 Chronic obstructive pulmonary disease, unspecified; I10 Essential (primary) hypertension; E78.5 Hyperlipidemia, unspecified; Z86.711 Personal history of pulmonary embolism; Z86.718 Personal history of other venous thrombosis and embolism; Z85.71 Personal history of Hodgkin lymphoma; Z85.3 Personal history of malignant neoplasm of breast; Z98.84 Bariatric surgery status; Z79.891 Long term (current) use of opiate analgesic; Z79.899 Other long term (current) drug therapy; G89.29 Other chronic pain; Z88.0 Allergy status to penicillin; Z88.7 Allergy status to serum and vaccine; Z82.49 Family history of ischemic heart disease and other diseases of the circulatory system
CPT/HCPCS: 36415; 71020; 71275; 80048; 80053; 80076; 80320; 82728; 83540; 83550; 83605; 83615; 83880; 84484; 85025; 85520; 85610; 87040; 93005; 94640; 94760; A9270-GY; G0378; G0480; J1650; J2405; J2930; J7512; Q9967

== ENCOUNTER 2016-12-17 14:03 | Emergency (ER) | payer SELFPAY ==
[2016-12-17] MEDS ORDERED: NS 0.9% 1000 ML* 1,000 ML IV ONE (14:47)
[2016-12-17] MEDS ORDERED: Ondansetron INJ* 2 MG/ML VIAL IV ONE (15:04)
[2016-12-17 15:11] LABS: Hematocrit 37 % (35-47); Hemoglobin 12.6 g/dl (12.0-16.0); Mean Corpuscular HGB Conc 34 g/dl (31-36); Mean Corpuscular Hemoglobin 33 pg (27-31); Mean Corpuscular Volume 97 fL (80-97); Mean Platelet Volume 9 um3 (7.4-10.4); Red Blood Count 3.81 10^6/ul (4.0-5.4); Red Cell Distribution Width 18 % (10.5-15); White Blood Count 4.9 10^3/ul (3.5-10.8)
[2016-12-17 15:47] LABS: Albumin 3.3 g/dL (3.2-5.2); Calcium 8.7 mg/dL (8.6-10.3); EGFR African American 129.4 (>60); EGFR Non-African American 100.6 (>60); Globulin 2.6 g/dL (2-4); Total Bilirubin 1.8 mg/dL (0.2-1.0); Total Protein 5.9 g/dL (6.4-8.9)
[2016-12-17 15:51] LABS: Potassium 2.7 mmol/L (3.5-5.0)
[2016-12-17] MEDS ORDERED: Potassium Chlor TAB* 20 MEQ TAB.ER PO ONE ×3 (15:51→16:49)
[2016-12-17] MEDS ORDERED: Iohexol 350* (CONTRAST) 500 ML MDV IV ONE (15:54)
--- NOTE | 2016-12-17 16:26 | RAD ---
INDICATION: Shortness of breath, history of pulmonary embolism. COMPARISON: Comparison is made with a prior CT angiogram of the chest from August 25, 2016. TECHNIQUE: A CT angiogram of the chest was performed with intravenous following intravenous injection of 62 ml of Omnipaque 350 nonionic contrast. Contiguous axial sections were obtained from the lung apices through the lung bases. Images were reconstructed in the coronal and sagittal planes. FINDINGS: There is relatively homogeneous opacification of the pulmonary arteries. No intraluminal filling defect or pulmonary embolism is seen. The previously noted right-sided pulmonary emboli are no longer visualized. The heart appears mildly enlarged. No pericardial effusion is present. The ascending thoracic aorta is mildly ectatic. There is homogeneous contrast opacification of the aorta. There is no evidence for dissection. No significant enlarged mediastinal or hilar lymph nodes are seen. There are mildly prominent left axillary lymph nodes measuring up to 2.0 x 1.2 cm in size which are unchanged. There are mild dependent bilateral lower lobe infiltrates most consistent with subsegmental atelectasis. No pleural effusion is seen. The patient is status post bilateral mastectomy and reconstruction with breast implants which appear grossly intact. Images of the upper abdomen demonstrate hepatomegaly with diffuse fatty infiltration. No significant focal osseous abnormality is seen. IMPRESSION: 1. NO EVIDENCE FOR PULMONARY EMBOLISM. 2. MILDLY ENLARGED LEFT AXILLARY LYMPH NODES, UNCHANGED FROM THE AUGUST 2016 STUDY. 3. STATUS POST BILATERAL MASTECTOMY AND RECONSTRUCTION WITH IMPLANTS. 4. HEPATOMEGALY AND HEPATIC STEATOSIS.
[2016-12-17 18:39] LABS: Calcium 7.8 mg/dL (8.6-10.3); EGFR African American 159.7 (>60); EGFR Non-African American 124.2 (>60); Potassium 3.3 mmol/L (3.5-5.0)
--- NOTE | 2016-12-17 18:52 | ED ---
Kayla Jarrett Edward, scribed for RaymondmanuelaDelilahAbdiel on 12/17/16 at 1427 . Shortness of Breath - HPI Summary HPI Summary: 66 y/o female BIBA c/o SOB starting approximately 2 hours ago. Pt also c/o CP starting around 7 days ago. PMHx dx with PE in August 2016 - she was recently switched to Coumadin which is around when the CP started. Associated sx : bilateral pedal edema. No PMHx of FL's. PMHx anxiety, COPD. Occasional EtOH use. Pt had a breathing treatment which alleviated her SOB. - History of Current Complaint Chief Complaint: EDRespiratoryDistress Hx Obtained From: Patient Onset/Duration: Lasting Hours Associated Signs & Symptoms: Chest Pain Unrelated to Cough, Edema - Bilateral pedal edema - Allergy/Home Medications Allergies/Adverse Reactions: Allergies Allergy/AdvReac Type Severity Reaction Status Date / Time Penicillins [PCN] Allergy Unknown Verified 01/11/15 01:08 Reaction Details Influenza Vaccines AdvReac Unknown See Comment Verified 01/11/15 01:08 PMH/Surg Hx/FS Hx/Imm Hx Previously Healthy: No Endocrine/Hematology History: Reports: Hx Anticoagulant Therapy - lovenox, Hx Blood Transfusions, Hx Anemia, Hx Unexplained Bleeding Denies: Hx Diabetes, Hx Systemic Lupus Erythematosus, Hx Thyroid Disease Cardiovascular History: Reports: Hx Deep Vein Thrombosis, Hx Embolism, Hx Hypertension, Other Cardiovascular Problems/Disorders - TACHY Denies: Hx Congestive Heart Failure Respiratory History: Reports: Hx Asthma, Hx Chronic Obstructive Pulmonary Disease (COPD), Hx Pulmonary Embolism, Hx Seasonal Allergies, Other Respiratory Problems/Disorders - PULMONARY EMBOLI GI History: Reports: Hx Gastroesophageal Reflux Disease, Hx Gastrointestinal Bleed, Hx Ulcer, Other GI Disorders - Gastric Bypass, hx GI bleed History: Denies: Hx Dialysis, Hx Renal Disease Musculoskeletal History: Reports: Hx Arthritis - left knee, Hx Back Problems, Hx Orthopedic Injury - left foot, Other Musculoskeletal History - HX OBESITY, S/ P GASTIC BYPASS 2003 Denies: Hx Rheumatoid Arthritis Sensory History: Reports: Hx Contacts or Glasses - reading Denies: Hx Hearing Aid Opthamlomology History: Reports: Hx Contacts or Glasses - reading Neurological History: Denies: Hx CVA Psychiatric History: Reports: Hx Anxiety, Hx Depression - Cancer History Cancer Type, Location and Year: 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 HYSTERECTOMY 2003. GASTRIC BYPASS 2003. D&C. left foot Fx, plates and screws. cholecystectomy Hx Anesthesia Reactions: No - Immunization History Date of Tetanus Vaccine: PT STATES UNSURE Date of Influenza Vaccine: NONE Infectious Disease History: Reports: Hx Hepatitis - ulcers Denies: Traveled Outside the [place] in Last 30 Days - Family History Known Family History: Positive: Cardiac Disease, Hypertension, Diabetes, Other - [place] - Social History Alcohol Use: Occasionally Alcohol Amount: States I drink more than I should Hx Substance Use: No Substance Use Type: Reports: None Hx Tobacco Use: No Smoking Status (MU): Never Smoked Tobacco Review of Systems Constitutional: Negative Eyes: Negative ENT: Negative Positive: Chest Pain Positive: Shortness Of Breath Gastrointestinal: Negative Genitourinary: Negative Positive: Edema - Bilateral pedal edema Skin: Negative Neurological: Negative Psychological: Normal All Other Systems Reviewed And Are Negative: Yes Physical Exam Triage Information Reviewed: Yes Vital Signs Reviewed: Yes Appearance: Positive: Well-Appearing, No Pain Distress Skin: Positive: Warm, Skin Color Reflects Adequate Perfusion, Dry Head/Face: Positive: Normal Head/Face Inspection Eyes: Positive: EOMI, WILLIAM ENT: Positive: Normal ENT inspection Neck: Positive: Supple, Nontender Respiratory/Lung Sounds: Positive: Clear to Auscultation, Breath Sounds Present Cardiovascular: Positive: RRR, Pulses are Symmetrical in both Upper and Lower Extremities Abdomen Description: Positive: Nontender, Soft Bowel Sounds: Positive: Present Musculoskeletal: Positive: Normal, Strength/ROM Intact Neurological: Positive: Normal, Sensory/Motor Intact, Alert, Oriented to Person Place, Time Psychiatric: Positive: Anxious Diagnostics - Laboratory Result Diagrams: 12/17/16 14:38 12/17/16 17:55 Lab Statement: Any lab studies that have been ordered have been reviewed, and results considered in the medical decision making process. - CT CHEST/THORAX CTA CT Interpretation: No Acute Changes - 1. NO EVIDENCE FOR PULMONARY EMBOLISM. 2. MILDLY ENLARGED LEFT AXILLARY LYMPH NODES, UNCHANGED FROM THE AUGUST 2016 STUDY. 3. STATUS POST BILATERAL MASTECTOMY AND RECONSTRUCTION WITH IMPLANTS. 4. HEPATOMEGALY AND HEPATIC STEATOSIS. ED PHYSICIAN AGREEABLE CT Interpretation Completed By: Radiologist - EKG 1 EKG Interpretation: 14:26 - SINUS TACHYCARDIA @ 100 BPM, NONSPECIFIC ST CHANGES Re-Evaluation - Re-Evaluation 1 Re-Evaluation Time: 18:44 Comment: Discuss plan of care Course/Dx - Course Assessment/Plan: 66 y/o female BIBA c/o SOB starting approximately 2 hours ago. Pt also c/o CP starting around 7 days ago. PMHx dx with PE in July/August 2016 - she was recently switched to Coumadin which is around when the CP started. Associated sx: bilateral pedal edema. No PMHx of FL's. PMHx anxiety, COPD. Occasional EtOH use. Pt had a breathing treatment which alleviated her SOB. EKG 14:26 - SINUS TACHYCARDIA @ 100 BPM, NONSPECIFIC ST CHANGES. CHEST/THORAX CTA SHOWS 1. NO EVIDENCE FOR PULMONARY EMBOLISM. 2. MILDLY ENLARGED LEFT AXILLARY LYMPH NODES, UNCHANGED FROM THE AUGUST 2016 STUDY. 3. STATUS POST BILATERAL MASTECTOMY AND RECONSTRUCTION WITH IMPLANTS. 4. HEPATOMEGALY AND HEPATIC STEATOSIS. ED PHYSICIAN AGREEABLE. Pt has a history of PE. Labs and test results done. Pt will be d/c home and instructed to continue Coumadin. Pt will be instructed to f/u with PCP and repeat the tests in 3 weeks. - Diagnoses Provider Diagnoses: Hypokalemia, Dyspnea, Anxiety, History of pulmonary embolism Discharge - Discharge Plan Condition: Stable Disposition: HOME Patient Education Materials: Anxiety (ED), Dyspnea (ED), Hypokalemia (ED) Referrals: Layo Lopez MD [Primary Care Provider] - 3 Days (PLEASE F/U IN 2-3 DAYS) Additional Instructions: CONTINUE WITH COUMADIN INSTRUCTED. F/U WITH PCP IN 3 WEEKS TO REPEAT TESTS The documentation as recorded by the Kayla neil Edward accurately reflects the service I personally performed and the decisions made by , Abdiel Mondragon.
[2016-12-17 19:02] VITALS: BP 126/69
== END 2016-12-17 19:03 | disposition home or self-care (01) ==
LOC: ED 14:03
DX: R07.9 Chest pain, unspecified (principal); R05 Cough; R60.9 Edema, unspecified; Z79.01 Long term (current) use of anticoagulants; Z86.718 Personal history of other venous thrombosis and embolism; R06.02 Shortness of breath
CPT/HCPCS: 36415; 71275; 80048; 80053; 83880; 84484; 85025; 93005; 96374; 99283; A9270-GY; J2405; Q9967

== ENCOUNTER 2017-06-16 00:27 | Emergency (ER) | payer MEDICARE ==
[2017-06-16] MEDS ORDERED: Albuterol/Ipratropium NEB.SOL* Albuterol 2.5 MG/Ipratropium 0.5 MG 3 ML INH ONE (00:41)
[2017-06-16] MEDS ORDERED: predniSONE TAB* 20 MG PO ONE (00:41)
[2017-06-16 01:18] VITALS: BP 141/71
--- NOTE | 2017-06-16 01:55 | ED ---
Елена Jarrett Emily, scribed for Malcolm Alvarado MD on 06/16/17 at 0045 . Shortness of Breath - HPI Summary HPI Summary: This patient is a 67 year old F BIBA to [facility] with a chief complaint of SOB that began at 1830 yesterday. The patient rates the pain 0/10 in severity. Symptoms aggravated by nothing. Symptoms alleviated by breathing treatment in the ambulance in route. Patient reports L leg edema (chronic). Patient denies fever and cough. Pt reports exposure to cigarette smoke yesterday. - History of Current Complaint Chief Complaint: EDShortnessOfBreath Time Seen by Provider: 06/16/17 00:35 Hx Obtained From: Patient Onset/Duration: Sudden Onset, Lasting Hours, Still Present Timing: Constant Current Severity: Mild Alleviating Factors: EMS Tx - Allergy/Home Medications Allergies/Adverse Reactions: Allergies Allergy/AdvReac Type Severity Reaction Status Date / Time MS Penicillins [PCN] Allergy Unknown Verified 01/11/15 01:08 Reaction Details MS Influenza Vaccines AdvReac Unknown See Comment Verified 01/11/15 01:08 [Influenza Vaccines] PMH/Surg Hx/FS Hx/Imm Hx Previously Healthy: No Endocrine/Hematology History: Reports: Hx Anticoagulant Therapy - lovenox, Hx Blood Transfusions, Hx Anemia, Hx Unexplained Bleeding Denies: Hx Diabetes, Hx Systemic Lupus Erythematosus, Hx Thyroid Disease Cardiovascular History: Reports: Hx Deep Vein Thrombosis, Hx Embolism, Hx Hypertension, Other Cardiovascular Problems/Disorders - TACHY Denies: Hx Congestive Heart Failure Respiratory History: Reports: Hx Asthma, Hx Chronic Obstructive Pulmonary Disease (COPD), Hx Pulmonary Embolism, Hx Seasonal Allergies, Other Respiratory Problems/Disorders - PULMONARY EMBOLI GI History: Reports: Hx Gastroesophageal Reflux Disease, Hx Gastrointestinal Bleed, Hx Ulcer, Other GI Disorders - Gastric Bypass, hx GI bleed History: Denies: Hx Dialysis, Hx Renal Disease Musculoskeletal History: Reports: Hx Arthritis - left knee, Hx Back Problems, Hx Orthopedic Injury - left foot, Other Musculoskeletal History - HX OBESITY, S/ P GASTIC BYPASS 2003 Denies: Hx Rheumatoid Arthritis Sensory History: Reports: Hx Contacts or Glasses - reading Denies: Hx Hearing Aid Opthamlomology History: Reports: Hx Contacts or Glasses - reading Neurological History: Denies: Hx CVA Psychiatric History: Reports: Hx Anxiety, Hx Depression - Cancer History Cancer Type, Location and Year: 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 HYSTERECTOMY 2003. GASTRIC BYPASS 2003. D&C. left foot Fx, plates and screws. cholecystectomy Hx Anesthesia Reactions: No - Immunization History Date of Tetanus Vaccine: PT STATES UNSURE Date of Influenza Vaccine: NONE Infectious Disease History: No Infectious Disease History: Reports: Hx Hepatitis - ulcers Denies: Traveled Outside the [place] in Last 30 Days - Family History Known Family History: Positive: Cardiac Disease, Hypertension, Diabetes, Other - [place] - Social History Occupation: Retired Lives: Alone Alcohol Use: Occasionally Alcohol Amount: States I drink more than I should Hx Substance Use: No Substance Use Type: Reports: None Hx Tobacco Use: No Smoking Status (MU): Never Smoked Tobacco Review of Systems Negative: Fever Positive: Shortness Of Breath. Negative: Cough Positive: Edema All Other Systems Reviewed And Are Negative: Yes Physical Exam - Summary Physical Exam Summary: Appearance: Well appearing, no pain distress Skin: warm, dry, reflects adequate perfusion Head/face: normal Eyes: EOMI, WILLIAM ENT: normal Neck: supple, non-tender Respiratory: breath sounds present, Fine wheezes at both bases. O2 saturation is 96%. Work of breathing is nml. Cardiovascular: pulses symmetrical, tachycardic Abdomen: non-tender, soft Bowel: present Musculoskeletal: normal, strength/ROM intact Neuro: normal, sensory motor intact, A&Ox3 Triage Information Reviewed: Yes Vital Signs On Initial Exam: Initial Vitals Temp Pulse Resp BP Pulse Ox 98.3 F 103 18 142/85 94 06/16/17 00:31 06/16/17 00:31 06/16/17 00:31 06/16/17 00:31 06/16/17 00:31 Vital Signs Reviewed: Yes Diagnostics - Vital Signs Vital Signs Temp Pulse Resp BP Pulse Ox 06/16/17 00:34 18 06/16/17 00:31 98.3 F 103 18 142/85 94 - Laboratory Lab Statement: Any lab studies that have been ordered have been reviewed, and results considered in the medical decision making process. Course/Dx - Course Course Of Treatment: pt with hx of asthma with some wheezing and SOB this evening. Better with tx by EMS. Very little wheezing and good air movement here. Started steroids and given another tx. Went home at baseline. - Diagnoses Differential Diagnosis/HQI/PQRI: Positive: Asthma, COPD Exacerbation Provider Diagnoses: Acute asthma exacerbation Discharge - Discharge Plan Condition: Good Disposition: HOME Prescriptions: predniSONE TAB* [Deltasone TAB*] 50 mg PO DAILY #4 tab Patient Education Materials: Asthma (ED) Referrals: Layo Lopez MD [Primary Care Provider] - Additional Instructions: Use your inhaler or nebulizers every 4hrs until well. Avoid smokers. Return with difficulty breathing, fever, worse or other concerns as discussed. The documentation as recorded by the Елена neil Emily accurately reflects the service I personally performed and the decisions made by me, Malcolm Alvarado MD.
== END 2017-06-16 01:17 | disposition home or self-care (01) ==
LOC: ED 00:27
DX: J45.901 Unspecified asthma with (acute) exacerbation (principal); Z77.22 Contact with and (suspected) exposure to environmental tobacco smoke (acute) (chronic); Z88.0 Allergy status to penicillin; Z88.7 Allergy status to serum and vaccine
CPT/HCPCS: 94640; 99284; A9270-GY; J7512

== ENCOUNTER 2017-08-23 09:41 | Emergency (ER) | payer MEDICARE ==
[2017-08-23 10:45] VITALS: BP 147/100
--- NOTE | 2017-08-23 12:37 | ED ---
Rober Jarrett Stephanie, scribed for Kenji Guzman MD on 08/23/17 at 1028 . Shortness of Breath - HPI Summary HPI Summary: The pt is a 67 y/o F BIBA to the ED with c/o SOB that began at 01:00. Symptoms include productive cough and nasal drainage into her throat. The pt is not on home O2. 90% RA upon arrival of EMS. Pt took nebulizer and 25 mg prednisone tabs at home at 02:00. Per pt EMS provided nebx2. Pt arrives to ED 99% RA. - History of Current Complaint Chief Complaint: EDShortnessOfBreath Time Seen by Provider: 08/23/17 10:08 Hx Obtained From: Patient Onset/Duration: Gradual Onset, Lasting Hours - 9, Still Present Timing: Constant Current Severity: Moderate Aggrevating Factors: Allergens Alleviating Factors: Nothing Associated Signs & Symptoms: Cough (Productive), Nasal Congestion - Allergy/Home Medications Allergies/Adverse Reactions: Allergies Allergy/AdvReac Type Severity Reaction Status Date / Time influenza virus vaccine, Allergy See Comment Verified 07/07/17 10:15 specific Penicillins Allergy Unknown Verified 07/07/17 10:15 Reaction Details Home Medications: Home Medications Enoxaparin(*) [Lovenox(*)] 80 mg SUBCUT Q24HR 08/23/17 [History Confirmed ] Magnesium Oxide TAB* [MagOx 400 TAB*] 400 mg PO DAILY 08/23/17 [History Confirmed 08/23/17] Multivitamins/Minerals TAB* [Theragran/minerals TAB*] 1 tab PO DAILY 08/23/17 [ History Confirmed 08/23/17] predniSONE TAB* [Deltasone TAB*] 10 - 20 mg PO DAILY PRN 08/23/17 [History Confirmed 08/23/17] PMH/Surg Hx/FS Hx/Imm Hx Endocrine/Hematology History: Reports: Hx Anticoagulant Therapy - lovenox, Hx Blood Transfusions, Hx Anemia, Hx Unexplained Bleeding Denies: Hx Diabetes, Hx Systemic Lupus Erythematosus, Hx Thyroid Disease Cardiovascular History: Reports: Hx Deep Vein Thrombosis, Hx Embolism, Hx Hypertension, Other Cardiovascular Problems/Disorders - TACHY Denies: Hx Congestive Heart Failure Respiratory History: Reports: Hx Asthma, Hx Chronic Obstructive Pulmonary Disease (COPD), Hx Pulmonary Embolism, Hx Seasonal Allergies, Other Respiratory Problems/Disorders - PULMONARY EMBOLI GI History: Reports: Hx Gastroesophageal Reflux Disease, Hx Gastrointestinal Bleed, Hx Ulcer, Other GI Disorders - Gastric Bypass, hx GI bleed History: Denies: Hx Dialysis, Hx Renal Disease Musculoskeletal History: Reports: Hx Arthritis - left knee, Hx Back Problems, Hx Orthopedic Injury - left foot, Other Musculoskeletal History - HX OBESITY, S/ P GASTIC BYPASS 2003 Denies: Hx Rheumatoid Arthritis Sensory History: Reports: Hx Contacts or Glasses - reading Denies: Hx Hearing Aid Opthamlomology History: Reports: Hx Contacts or Glasses - reading Neurological History: Denies: Hx CVA Psychiatric History: Reports: Hx Anxiety, Hx Depression - Cancer History Cancer Type, Location and Year: 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 HYSTERECTOMY 2003. GASTRIC BYPASS 2003. D&C. left foot Fx, plates and screws. cholecystectomy Hx Anesthesia Reactions: No - Immunization History Date of Tetanus Vaccine: PT STATES UNSURE Date of Influenza Vaccine: NONE Infectious Disease History: No Infectious Disease History: Reports: Hx Hepatitis - ulcers Denies: Traveled Outside the [place] in Last 30 Days - Family History Known Family History: Positive: Cardiac Disease, Hypertension, Diabetes, Other - CA - Social History Occupation: Retired Lives: Alone Alcohol Use: Occasionally Alcohol Amount: "drank 3 doubles last night" Hx Substance Use: No Substance Use Type: Reports: None Substance Use Comment - Amount & Last Used: marijuana cream Hx Tobacco Use: No Smoking Status (MU): Never Smoked Tobacco Review of Systems Negative: Fever Positive: Nasal Discharge Positive: Shortness Of Breath All Other Systems Reviewed And Are Negative: Yes Physical Exam - Summary Physical Exam Summary: Appearance: The patient is well-nourished in no acute distress and in no acute pain. Skin: The skin is warm and dry and skin color reflects adequate perfusion. HEENT: The head is normocephalic and atraumatic. The pupils are equal and reactive. The conjunctivae are clear and without drainage. Nares are patent and without drainage. Mouth reveals moist mucous membranes and the throat is without erythema and exudate. The external ears are intact. The ear canals are patent and without drainage. The tympanic membranes are intact. Neck: the neck is supple with full range of motion and non-tender. There are no carotid bruits. There is no neck vein distension. Respiratory: Chest is non-tender. Lungs have spare wheezes anteriorly and breath sounds are symmetrical and equal. Cardiovascular: Heart is borderline tachycardic. There is no murmur or rub auscultated. There is no peripheral edema and pulses are symmetrical and equal. Abdomen: The abdomen is soft and non-tender. There are normal bowel sounds heard in all four quadrants and there is no organomegaly palpated. Musculoskeletal: There is no back tenderness noted. Extremities are non-tender with full range of motion. There is good capillary refill. There is no peripheral edema or calf tenderness elicited. Neurological: Patient is alert and oriented to person, place and time. The patient has symmetrical motor strength in all four extremities. Cranial nerves are grossly intact. Deep tendon reflexes are symmetrical and equal in all four extremities. Psychiatric: The patient has an appropriate affect and does not exhibit any anxiety or depression. Triage Information Reviewed: Yes Vital Signs On Initial Exam: Initial Vitals Temp Pulse Resp BP Pulse Ox 98.2 F 101 20 170/93 99 08/23/17 09:46 08/23/17 09:46 08/23/17 09:46 08/23/17 09:46 08/23/17 09:46 Vital Signs Reviewed: Yes Diagnostics - Vital Signs Vital Signs Temp Pulse Resp BP Pulse Ox 08/23/17 09:46 98.2 F 101 20 170/93 99 - Laboratory Lab Statement: Any lab studies that have been ordered have been reviewed, and results considered in the medical decision making process. Course/Dx - Course Course Of Treatment: Ms. Puente presented with a couple days of increasing SOB that she feels is secondary to the spring pollen. She really hasn't had any symptoms of an acute infection. She improved a lot with nebs en route and did take the last of some leftover prednisone last night and this AM (25 mgs total) . She has no wheezing on arrival and I will give her a script for prednisone for a few days. I don't think antibiotics are indicated at this time. - Diagnoses Provider Diagnoses: COPD exacerbation Discharge - Sign-Out/Discharge Documenting (check all that apply): Discharge/Admit/Transfer - Discharge - Discharge Plan Condition: Stable Disposition: HOME Prescriptions: predniSONE TAB* [Deltasone TAB*] 40 mg PO DAILY #10 tab Patient Education Materials: COPD (Chronic Obstructive Pulmonary Disease) (ED) Referrals: Madi Fitzgerald MD [Primary Care Provider] - 2 Days Additional Instructions: Return to the ED for new or worsening symptoms. - Billing Disposition and Condition Condition: STABLE Disposition: HOME The documentation as recorded by the Rober neil Stephanie accurately reflects the service I personally performed and the decisions made by me, Kenji Guzman MD.
== END 2017-08-23 10:44 | disposition home or self-care (01) ==
LOC: ED 09:41
DX: J44.1 Chronic obstructive pulmonary disease with (acute) exacerbation (principal); Z88.0 Allergy status to penicillin; Z88.7 Allergy status to serum and vaccine
CPT/HCPCS: 99282

== ENCOUNTER 2019-05-03 00:49 | Emergency (ER) | payer MEDICARE ==
--- OUTSIDE RECORDS SUMMARY | 2019-05-03 01:33 | XMS REPORT | Continuity of Care Document ---
:1950 External Reference #:[id number] Author Name Bobby Ragsdale MD Address [facility] [place] [address] Care Team Providers Name Role Phone Bobby Ragsdale MD - Family Medicine Care Team Information Donor Recruitment Manager [phone] Problems Active Problems Provider Date Unable to walk Onset: 08/29/2014 Sequela of chronic liver disease Bobby Ragsdale MD Onset: 03/12/2019 Essential hypertension Bobby Ragsdale MD Onset: 03/12/2019 Hyperlipidemia Bobby Ragsdale MD Onset: 03/12/2019 Moderate recurrent major depression Bobby Ragsdale MD Onset: 03/12/2019 Neoplasm of uncertain behavior of breast Bobby Ragsdale MD Onset: 03/12/2019 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 Bobby Ragsdale MD Onset: site Social History Type Date Description Comments Sex Unknown Tobacco Use Start: Unknown Never Smoked Cigarettes Smoking Status Reviewed: 03/12/19 Never Smoked Cigarettes ETOH Use Denies alcohol use Tobacco Use Start: Unknown Patient has never smoked Allergies, Adverse Reactions, Alerts Active Allergies Reaction Severity Comments Date Penicillins 08/29/2014 Medications Active Medications SIG Qnty Indications Ordering Date Provider Ferrous Sulfate 1 tab by mouth 180tabs Bobby Ragsdale MD 03/17/2019 twice a day as 325(65Fe) mg Tablets directed Potassium Chloride ER 1 tab by mouth 7tabs Bobby Ragsdale MD 03/17/2019 once a day as 20Meq Tablets ER directed Venlafaxine HCL 1 by mouth every 90tabs Bobby Ragsdale MD 75mg day Tablets Vitamin B 12 1 by mouth every Unknown 500mcg day Tablets Folic Acid 1 tabl by mouth Unknown 1mg Tablets every day Furosemide 1 by mouth every 90tabs Bobby Ragsdale MD 20mg Tablets day Xifaxan 1 tab by mouth 180tabs Bobby Ragsdale MD 550mg Tablets three times a day [facility] Iron 1 by mouth every Unknown 325(65Fe) mg day Tablets Lactulose 10 milliliters by 237ml Bobby Ragsdale MD Encephalopathy mouth 1-2 times a 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 as 10GM/15ML Solution needed for constipation. Metoprolol Succinate 1 by mouth every Unknown ER day 25mg Tablets ER 24HR Albuterol Sulfate HFA Unknown 108(90Base) mcg/Act Aerosol Levothyroxine Sodium 1 by mouth every 90tabs Bobby Ragsdale MD day 50mcg Tablets Immunizations CPT Code Status Date Vaccine Lot # [id number] Given 03/12/2019 Pneumococcal Conjugate Vaccine 13 Valent For [id number] Intramuscular Use Vital Signs Date Vital Result Comment 03/12/2019 1:15pm BP Systolic 108 mmHg BP Diastolic 64 mmHg Body Temperature 99.3 F Heart Rate 78 /min Respiratory Rate 16 /min Height 58 inches 4'10" Weight 136.00 lb BMI (Body Mass Index) 28.4 kg/m2 BSA (Body Surface Area) 1.55 m2 Alexander body weight in kilograms 45 kg O2 % BldC Oximetry 99 % Results Test Acquired Date Facility Test Result H/L Range Note CBC 03/12/2019 [facility] White Blood 8.9 K/uL Normal 3.1-10.7 1 W/Automated [address] [place] [address] [phone] Red Blood Count 2.71 M/uL Low 3.90-5.40 Hemoglobin 8.5 gm/dL Low 11.6-15.8 Hematocrit 25.8 % Low 36.0-46.1 Mean Cell Volume 95.2 fl Normal 80.9-99.0 Mean Corpuscular HGB 31.4 pg Normal 25.9-32.7 Mean Corpuscular HGB Conc 32.9 g/dL Normal 30.8-34.3 Platelet Count 197 K/uL Normal 155-360 Red Cell Distri Width SD 49.9 fl High 36-47 Red Cell Distri Width %CV 14.6 % High 11.7-14.4 Mean Platelet Volume 11.3 fl Normal 8.9-12.4 Neut% 68.7 % Normal 40.4-72.8 Lymph % 17.5 % Low 20.0-42.0 [place] % 7.3 % Normal 4.3-13.2 Eo% 4.7 % Normal 0.0-6.6 Bas% 0.9 % Normal 0.0-1.1 Immature Grans 0.9 % Normal 0.0-5.0 NRBC % 0.0 /100WBC < 10/ 100 WBC Neut# 6.10 K/uL Normal 1.8-7.0 Lymph # 1.56 K/uL Normal 1.0-4.0 [place] # 0.65 K/uL Normal 0.3-0.9 Eos # 0.42 K/uL Normal 0.0-0.5 Baso # 0.08 K/uL Normal 0.0-0.1 Immature Grans Absolute 0.08 K/uL NRBC # 0.00 K/uL Comprehensive Metabolic 03/12/2019 [facility] Glucose 122 mg/dL High 74-106 Panel [address] [place] [address] [phone] BUN 21 mg/dL High 7-18 Creatinine 1.1 mg/dL 0.6-1.3 Glom Filtration Rate, Estimate 53 mL/min >60 If >60 mL/min >60 2 BUN/Creat 19.0 ratio Sodium 136 mmol/L Normal 136-145 Potassium 3.3 mmol/L Low 3.5-5.1 Chloride 106 mmol/L Normal 98-107 Carbon Dioxide 22 mmol/L Normal 21-32 Anion Gap 8 mEq/L Normal 8-16 Calcium 8.5 mg/dL Normal 8.5-10.1 Total Protein 6.4 g/dL Normal 6.4-8.2 Albumin 3.3 g/dL Low 3.4-5.0 Globulin 3.1 g/dL Normal 1.9-4.3 Alb/Glob 1.1 ratio Bilirubin,Total 0.9 mg/dL Normal 0.2-1.0 Sgot/Ast 13 U/L Low 15-37 3 SGPT/Alt 18 U/L Normal 12-78 Alkaline Phosphatase 148 U/L High 45-117 Reflex add FT3? Y Reflex add FT4? Y Glycohemoglobin 03/12/2019 [facility] Glycohemoglobin 5.3 % Normal 4.2-6.[address] (A1c) [place], [place] [id number] [phone] eAG 105 mg/dL LDL Cholesterol Profile 03/12/2019 [facility] Cholesterol 117 mg/dL <[address] [place], [place] [id number] [phone] Triglycerides 88 mg/dL <150 6 HDL Cholesterol 32 mg/dL Low >40 7 LDL-Cholesterol 67 mg/dL < 100 8 Reflex add FT3? Y Reflex add FT4? Y TSH Reflex 03/12/2019 [facility] Thyroid Stim 0.58 uIU/mL Normal 0.30-4.20 FT4 And/Or [address] Hormone FT3 [place] [address] [phone] Reflex add FT3? Y Reflex add FT4? Y Magnesium 03/12/2019 [facility] Magnesium 2.3 mg/dL Normal 1.6-2.[address] [place] [address] [phone] Reflex add FT3? Y Reflex add FT4? Y 1 Z79.899 2 Note: Persistent reduction for 3 months or more in an eGFR <60 mL/min/1.73 m2 defines CKD. Patients with eGFR values >/=60 mL/min/1.73 m2 may also have CKD if evidence of persistent proteinuria is present. The original MDRD equation for estimated GFR is not valid for patients less than 18 years of age. Additional information may be found at www.kdoqi.org. 3 Values below the stated reference ranges of AST and ALT can be seen in normal populations. Clinical correlation is suggested. 4 Elevated levels of HbA1c suggest the need for more aggressive treatment of glycemia. The [place] [employer] recommends that a primary goal of therapy should be a HbA1c of <7% and that physicians should re-evaluate the treatment regimen in patients with HbA1c values consistently >8%. 5 Reference Guidelines*: Desirable: ........... < 200 mg/dL Borderline High: ..... 200-239 mg/dL High: ................ >= 240 mg/dL * The National Cholesterol Education Program (NCEP) 6 Reference Guidelines*: Normal: ............. < 150 mg/dL Borderline High: .... 150-199 mg/dL High: ............... 200-499 mg/dL Very High: .......... > 500 mg/dL * Source: National Cholesterol Education Program (NCEP) 7 Reference Guidelines*: Low HDL: ..... < 40 mg/dL Normal: ..... 40-60 mg/dL Desirable: ... > 60 mg/dL *The National Cholesterol Education Program(NCEP) 8 Reference Guidelines*: Optimal:........... <100 mg/dL Near Optimal....... 100-129 mg/dL Borderline High.... 130-159 mg/dL High............... 160-189 mg/dL Very High.......... >=190 mg/dL * Source: National Cholesterol Education Program (NCEP) Procedures Description No Information Available Medical Devices Description No Information Available Encounters Type Date Location Provider Dx Diagnosis Office Visit 03/12/2019 Family Medicine Bobby Ragsdale MD Z00.01 Encounter for 1:[address]p [address] general adult medical exam w abnormal findings K72.90 Hepatic failure, unspecified without coma I10 Essential (primary) hypertension E78.5 Hyperlipidemia, unspecified F33.1 Major depressive disorder, recurrent, moderate D48.60 Neoplasm of uncertain behavior of unspecified breast C81.90 Hodgkin lymphoma, unspecified, unspecified site Z23 Encounter for immunization Z12.11 Encounter for screening for malignant neoplasm of colon Z13.820 Encounter for screening for osteoporosis Z79.899 Other terminal manager (current) drug therapy Assessments Date Code Description Provider 03/12/2019 Z00.01 Encounter for general adult medical examination Bobby Ragsdale MD with abnormal findings 03/12/2019 K72.90 Hepatic failure, unspecified without coma Bobby Ragsdale MD 03/12/2019 I10 Essential (primary) hypertension Bobby Ragsdale MD 03/12/2019 E78.5 Hyperlipidemia, unspecified Bobby Ragsdale MD 03/12/2019 F33.1 Major depressive disorder, recurrent, moderate Bobby Ragsdale MD 03/12/2019 D48.60 Neoplasm of uncertain behavior of unspecified Bobby Ragsdale MD breast 03/12/2019 C81.90 Hodgkin lymphoma, unspecified, unspecified site Bobby Ragsdale MD 03/12/2019 Z23 Encounter for immunization Bobby Ragsdale MD 03/12/2019 Z12.11 Encounter for screening for malignant neoplasm of Bobby Ragsdale MD colon 03/12/2019 Z13.820 Encounter for screening for osteoporosis Bobby Rgasdale MD 03/12/2019 Z79.899 Other terminal manager (current) drug therapy Bobby Ragsdale MD Plan of Treatment Future Appointment(s):04/21/2019 1:50 pm - Bobby Ragsdale MD at [facility] Functional Status Description No Information Available Mental Status Description No Information Available Referrals Refer to Reason for Referral Status Appt Date Marylu Bruner MD 68F h/o ETOH abuse, HTN, HLD, Hodgkin's Sent lymphoma, breast CA, previous admission for hepatic encephalopathy [address] [place] [address] [phone]
--- OUTSIDE RECORDS SUMMARY | 2019-05-03 01:33 | XMS REPORT | Continuity of Care Document ---
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 Problems Provider Date Unable to walk Onset: 08/29/2014 Sequela of chronic liver disease Bobby Carrera MD Onset: 03/12/2019 Essential hypertension Bobby Carrera MD Onset: 03/12/2019 Hyperlipidemia Bobby Carrera MD Onset: 03/12/2019 Moderate recurrent major depression Bobby Carrera MD Onset: 03/12/2019 Neoplasm of uncertain behavior of breast Bobby Carrera MD Onset: 03/12/2019 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 Bobby Carrera MD Onset: site Other osteoporosis without current pathological Bobby Carrera MD Onset: 2019 fracture Anemia Bobby Carrera MD Onset: 04/21/2019 Social History Type Date Description Comments Sex Unknown Tobacco Use Start: Unknown Never Smoked Cigarettes Smoking Status Reviewed: 04/21/19 Never Smoked Cigarettes ETOH Use Denies alcohol use Tobacco Use Start: Unknown Patient has never smoked Allergies, Adverse Reactions, Alerts Active Allergies Reaction Severity Comments Date Penicillins 08/29/2014 Medications Active Medications SIG Qnty Indications Ordering Date Provider Calcium 600 2 tab by mouth 180tabs M81.8 Bobby Carrera MD 04/21/2019 600mg every daily Tablets Ferrous Sulfate 1 tab by mouth 180tabs Bobby Carrera MD 03/17/2019 twice a day as 325(65Fe) mg Tablets directed Potassium Chloride ER 1 tab by mouth 7tabs Bobby Carrera MD 03/17/2019 once a day as 20Meq Tablets ER directed Venlafaxine HCL 1 by mouth every 90tabs Bobby Carrera MD 75mg day Tablets Vitamin B 12 1 by mouth every Unknown 500mcg day Tablets Folic Acid 1 tabl by mouth Unknown 1mg Tablets every day Furosemide 1 by mouth every 90tabs Bobby Carrera MD 20mg Tablets day Xifaxan 1 tab by mouth 180tabs Bobby Carrera MD 550mg Tablets three times a day Lactulose 10 milliliters by 946ml [place] Bowen, Encephalopathy 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, 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, 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 Ibclc 10GM/15ML Solution Albuterol Sulfate HFA Unknown 108(90Base) mcg/Act Aerosol Levothyroxine Sodium 1 by mouth every 90tabs Bobby Carrera MD day 50mcg Tablets Metoprolol Tartrate 1 by mouth twice a Unknown day 25mg Tablets Immunizations CPT Code Status Date Vaccine Lot # [id number] Given 03/12/2019 Pneumococcal Conjugate Vaccine 13 Valent For [id number] Intramuscular Use Vital Signs Date Vital Result Comment 04/21/2019 12:47pm BP Systolic 129 mmHg BP Diastolic 75 mmHg Body Temperature 97.1 F Heart Rate 78 /min Respiratory Rate 16 /min Height 58 inches 4'10" Weight 131.00 lb BMI (Body Mass Index) 27.4 kg/m2 BSA (Body Surface Area) 1.52 m2 [place] body weight in kilograms 45 kg 03/12/2019 1:15pm BP Systolic 108 mmHg BP Diastolic 64 mmHg Body Temperature 99.3 F Heart Rate 78 /min Respiratory Rate 16 /min Height 58 inches 4'10" Weight 136.00 lb BMI (Body Mass Index) 28.4 kg/m2 BSA (Body Surface Area) 1.55 m2 [place] body weight in kilograms 45 kg O2 % BldC Oximetry 99 % Results Test Acquired Date Facility Test Result H/L Range Note Comprehensive 04/21/2019 [facility] [address] Glucose 114 mg/dL High 74-106 1 Metabolic Panel [address] [place], [place] [id number] [phone] BUN 11 mg/dL Normal 7-18 Creatinine 1.0 mg/dL Normal 0.6-1.3 Glom Filtration Rate, Estimate 59 mL/min >60 If >60 mL/min >60 2 BUN/Creat 11.0 ratio Sodium 139 mmol/L Normal 136-145 Potassium 2.6 mmol/L Critical low 3.5-5.1 Chloride 108 mmol/L High 98-107 Carbon Dioxide 26 mmol/L Normal 21-32 Anion Gap 5 mEq/L Low 8-16 Calcium 8.4 mg/dL Low 8.5-10.1 Total Protein 6.4 g/dL Normal 6.4-8.2 Albumin 3.2 g/dL Low 3.4-5.0 Globulin 3.2 g/dL Normal 1.9-4.3 Alb/Glob 1.0 ratio Bilirubin,Total 0.6 mg/dL Normal 0.2-1.0 Sgot/Ast 20 U/L Normal 15-37 SGPT/Alt 18 U/L Normal 12-78 Alkaline Phosphatase 157 U/L High 45-117 Laboratory 04/21/2019 [facility] [address] Gamma Glutamyl 164 U/L High 5-85 3 test finding [address] [place] [address] [phone] CBC 03/12/2019 [facility] White Blood Count 8.9 Normal 3.1-10.7 4 W/Automated [address] K/[place] [address] [phone] Red Blood Count 2.71 M/uL Low 3.90-5.40 [...] 40.4-72.8 Lymph % 17.5 % Low 20.0-42.0 [place] % 7.3 % Normal 4.3-13.2 Eo% 4.7 % Normal 0.0-6.6 Bas% 0.9 % Normal 0.0-1.1 Immature Grans 0.9 % Normal 0.0-5.0 NRBC % 0.0 /100WBC < 10/ 100 WBC Neut# 6.10 K/uL Normal 1.8-7.0 Lymph # 1.56 K/uL Normal 1.0-4.0 [place] # 0.65 K/uL Normal 0.3-0.9 Eos # 0.42 K/uL Normal 0.0-0.5 Baso # 0.08 K/uL Normal 0.0-0.1 Immature Grans Absolute 0.08 K/uL NRBC # 0.00 K/uL Comprehensive Metabolic 03/12/2019 [facility] Glucose 122 mg/dL High 74-[address] [place] [address] [phone] BUN 21 mg/dL High 7-18 Creatinine 1.1 mg/dL 0.6-1.3 Glom Filtration Rate, Estimate 53 mL/min >60 If >60 mL/min >60 5 BUN/Creat 19.0 ratio Sodium 136 mmol/L Normal [...] Normal 0.2-1.0 Sgot/Ast 13 U/L Low 15-37 6 SGPT/Alt 18 U/L Normal 12-78 Alkaline Phosphatase 148 U/L High 45-117 Reflex add FT3? Y Reflex add FT4? Y Glycohemoglobin 03/12/2019 [facility] Glycohemoglobin 5.3 % Normal 4.2-6.[address] (A1c) [place] [address] [phone] eAG 105 mg/dL LDL Cholesterol Profile 03/12/2019 [facility] Cholesterol 117 mg/dL <[address] [place] [address] [phone] Triglycerides 88 mg/dL <150 9 HDL Cholesterol 32 mg/dL Low >40 10 LDL-Cholesterol 67 mg/dL < 100 11 Reflex add FT3? Y Reflex add FT4? Y TSH Reflex 03/12/2019 [facility] Thyroid Stim 0.58 uIU/mL Normal 0.30-4.20 FT4 And/Or [address] Hormone FT3 [place] [address] [phone] Reflex add FT3? Y Reflex add FT4? Y Magnesium 03/12/2019 [facility] Magnesium 2.3 mg/dL Normal 1.6-2.6 [address] [place] [address] [phone] Reflex add FT3? Y Reflex add FT4? Y 1 K72.90 2 Note: Persistent reduction for 3 months or more in an eGFR <60 mL/min/1.73 m2 defines CKD. Patients with eGFR values >/=60 mL/min/1.73 m2 may also have CKD if evidence of persistent proteinuria is present. The original MDRD equation for estimated GFR is not valid for patients less than 18 years of age. Additional information may be found at www.kdoqi.org. [address] CARRERA WITH POTASSIUM AT 1802 04/21/19 4 Z79.899 5 Note: Persistent reduction for 3 months or more in an eGFR <60 mL/min/1.73 m2 defines CKD. Patients with eGFR values >/=60 mL/min/1.73 m2 may also have CKD if evidence of persistent proteinuria is present. The original MDRD equation for estimated GFR is not valid for patients less than 18 years of age. Additional information may be found at www.kdoqi.org. 6 Values below the stated reference ranges of AST and ALT can be seen in normal populations. Clinical correlation is suggested. 7 Elevated levels of HbA1c suggest the need for more aggressive treatment of glycemia. The [place] Diabetes Association recommends that a primary goal of therapy should be a HbA1c of <7% and that physicians should re-evaluate the treatment regimen in patients with HbA1c values consistently >8%. 8 Reference Guidelines*: Desirable: ........... < 200 mg/dL Borderline High: ..... 200-239 mg/dL High: ................ >= 240 mg/dL * The National Cholesterol Education Program (NCEP) 9 Reference Guidelines*: Normal: ............. < 150 mg/dL Borderline High: .... 150-199 mg/dL High: ............... 200-499 mg/dL Very High: .......... > 500 mg/dL * Source: National Cholesterol Education Program (NCEP) 10 Reference Guidelines*: Low HDL: ..... < 40 mg/dL Normal: ..... 40-60 mg/dL Desirable: ... > 60 mg/dL *The National Cholesterol Education Program(NCEP) 11 Reference Guidelines*: Optimal:........... <100 mg/dL Near Optimal....... 100-129 mg/dL Borderline High.... 130-159 mg/dL High............... 160-189 mg/dL Very High.......... >=190 mg/dL * Source: National Cholesterol Education Program (NCEP) Procedures Description No Information Available Medical Devices Description No Information Available Encounters Type Date Location Provider Dx Diagnosis Office Visit 04/21/2019 1:50p Family Medicine Bobby Cesar MD E87.[address] D64.9 Anemia, unspecified K72.90 Hepatic failure, unspecified without coma M81.8 Other osteoporosis without current pathological fracture Office Visit 03/12/2019 1:30p Family Medicine Bobby Carrera, Z00.01 Encounter for Toi CONNOR MD general adult medical exam w abnormal findings K72.90 Hepatic failure, unspecified without coma I10 Essential (primary) hypertension E78.5 Hyperlipidemia, unspecified F33.1 Major depressive disorder, recurrent, moderate D48.60 Neoplasm of uncertain behavior of unspecified breast C81.90 Hodgkin lymphoma, unspecified, unspecified site Z23 Encounter for immunization Z12.11 Encounter for screening for malignant neoplasm of colon Z13.820 Encounter for screening for osteoporosis Z79.899 Other assistant terminal manager (current) drug 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 Assessments Date Code Description Provider 04/21/2019 E87.6 Hypokalemia Bobby Carrera MD 04/21/2019 D64.9 Anemia, unspecified Bobby Carrera MD 04/21/2019 K72.90 Hepatic failure, unspecified without coma Bobby Carrera MD 04/21/2019 M81.8 Other osteoporosis without current pathological Bobby Carrera MD fracture 03/12/2019 Z00.01 Encounter for general adult medical examination Bobby Carrera MD with abnormal findings 03/12/2019 K72.90 Hepatic failure, unspecified without coma Bobby Carrera MD 03/12/2019 I10 Essential (primary) hypertension Bobby Carrera MD 03/12/2019 E78.5 Hyperlipidemia, unspecified Bobby Carrera MD 03/12/2019 F33.1 Major depressive disorder, recurrent, moderate Bobby Carrera MD 03/12/2019 D48.60 Neoplasm of uncertain behavior of unspecified Bobby Carrera MD breast 03/12/2019 C81.90 Hodgkin lymphoma, unspecified, unspecified site Bobby Carrera MD 03/12/2019 Z23 Encounter for immunization Bobby Carrera MD 03/12/2019 Z12.11 Encounter for screening for malignant neoplasm of Bobby Carrera MD colon 03/12/2019 Z13.820 Encounter for screening for osteoporosis Bobby Carrera MD 03/12/2019 Z79.899 Other fpc (current) drug therapy Bobby Carrera MD Plan of Treatment Future Appointment(s):08/18/2019 1:10 pm - Bobby Carrera MD at [facility] Functional Status Description No Information Available Mental Status Description No Information Available Referrals Refer to Reason for Referral Status Appt Date Marylu Bruner MD 68F h/o ETOH abuse, HTN, HLD, Hodgkin's Sent 05/21/2019 lymphoma, breast [place], previous admission for hepatic encephalopathy [address] [place] [address] [phone]
--- OUTSIDE RECORDS SUMMARY | 2019-05-03 01:33 | XMS REPORT | Continuity of Care Document ---
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 [phone] Problems Active Problems Provider Date Unable to [...] solid organ Bobby Ragsdale MD Onset: site Other osteoporosis without current pathological Bobby Ragsdale MD Onset: 2019 fracture Anemia Bobby Ragsdale MD Onset: 04/21/2019 Social History Type Date [...] 2 tab by mouth 180tabs M81.8 Bobby Ragsdale MD 04/21/2019 600mg every daily Tablets Ferrous [...] Bowen, Encephalopathy 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, 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, 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 Ibclc 10GM/15ML Solution Albuterol Sulfate HFA Unknown 108(90Base) mcg/Act Aerosol Levothyroxine Sodium 1 by mouth every 90tabs Bobby Ragsdale MD day 50mcg Tablets Metoprolol Tartrate 1 by mouth twice a Unknown day 25mg Tablets Immunizations CPT Code Status Date Vaccine Lot # [id number] Given 03/12/2019 Pneumococcal Conjugate Vaccine 13 Valent For [id number] Intramuscular Use Vital Signs Date Vital Result Comment 04/21/2019 12:47pm BP Systolic 129 mmHg BP Diastolic 75 mmHg Body Temperature 97.1 F Heart Rate 78 /min Respiratory Rate 16 /min Height 58 inches 4'10" Weight 131.00 lb BMI (Body Mass Index) 27.4 kg/m2 BSA (Body Surface Area) 1.52 m2 [place] body weight in kilograms 45 kg 03/12/2019 1:15pm BP Systolic 108 mmHg BP Diastolic 64 mmHg Body Temperature 99.3 F Heart Rate 78 /min Respiratory Rate 16 /min Height 58 inches 4'10" Weight 136.00 lb BMI (Body Mass Index) 28.4 kg/m2 BSA (Body Surface Area) 1.55 m2 [place] body weight in kilograms 45 kg O2 % BldC Oximetry 99 % Results Test Acquired Date Facility Test Result H/L Range Note CBC 03/12/2019 [facility] White Blood 8.9 K/uL Normal 3.1-10.7 1 W/Automated [address] Count Diff [place], [place] [address] [phone] Red Blood Count 2.71 M/uL Low 3.90-5.40 [...] 40.4-72.8 Lymph % 17.5 % Low 20.0-42.0 [place] % 7.3 % Normal 4.3-13.2 Eo% 4.7 % Normal 0.0-6.6 Bas% 0.9 % Normal 0.0-1.1 Immature Grans 0.9 % Normal 0.0-5.0 NRBC % 0.0 /100WBC < 10/ 100 WBC Neut# 6.10 K/uL Normal 1.8-7.0 Lymph # 1.56 K/uL Normal 1.0-4.0 [place] # 0.65 K/uL Normal 0.3-0.9 Eos # 0.42 K/uL Normal 0.0-0.5 Baso # 0.08 K/uL Normal 0.0-0.1 Immature Grans Absolute 0.08 K/uL NRBC # 0.00 K/uL Comprehensive Metabolic 03/12/2019 [facility] Glucose 122 mg/dL High 74-106 Panel [address] [place] [address] [phone] BUN 21 mg/dL High 7-18 Creatinine 1.1 [...] Y Reflex add FT4? Y Glycohemoglobin 03/12/2019 [facility] Glycohemoglobin 5.3 % Normal 4.2-6.[address] (A1c) [place] [address] [phone] eAG 105 mg/dL LDL Cholesterol Profile 03/12/2019 [facility] Cholesterol 117 mg/dL <[address] [place] [address] [phone] Triglycerides 88 mg/dL <150 6 HDL Cholesterol 32 mg/dL Low >40 7 LDL-Cholesterol 67 mg/dL < 100 8 Reflex add FT3? Y Reflex add FT4? Y TSH Reflex 03/12/2019 [facility] Thyroid Stim 0.58 uIU/mL Normal 0.30-4.20 FT4 And/Or [address] Hormone FT3 [place] [address] [phone] Reflex add FT3? Y Reflex add FT4? Y Magnesium 03/12/2019 [facility] Magnesium 2.3 mg/dL Normal 1.6-2.[address] [place] [address] [phone] Reflex add FT3? Y Reflex add FT4? [...] for more aggressive treatment of glycemia. The [place] Diabetes Association recommends that a primary goal [...] Encounter for screening for osteoporosis Z79.899 Other intermediate card tender (current) drug therapy Assessments Date Code Description Provider 04/21/2019 E87.6 Hypokalemia Bobby Ragsdale MD 04/21/2019 D64.9 Anemia, unspecified Bobby Ragsdale MD 04/21/2019 K72.90 Hepatic failure, unspecified without coma Bobby Ragsdale MD 04/21/2019 M81.8 Other osteoporosis without current pathological Bobby Ragsdale MD fracture 03/12/2019 Z00.01 Encounter for general [...] Z13.820 Encounter for screening for osteoporosis Bobby Ragsdale MD 03/12/2019 Z79.899 Other chcf (current) drug therapy Bobby Ragsdale MD Plan of Treatment 04/21/2019 - Bobby Ragsdale MDE87.6 PuzfmtfmkxlU16.9 Anemia, auntpdwfneiP64.90 Hepatic failure, unspecified without comaNew Labs:Comprehensive Metabolic Panel , Ordered: 04/21/19Gamma Glutamyl Transpeptidase, Ordered: 04/21/19M81.8 Other osteoporosis without current pathological fractureNew Medication:Calcium 600 600 mg - 2 tab by mouth every daily Functional Status Description No Information Available Mental Status Description No Information Available Referrals Refer to Reason for Referral Status Appt Date Marylu Bruner MD 68F h/o ETOH abuse, HTN, HLD, Hodgkin's Sent 05/21/2019 lymphoma, breast [place], previous admission for hepatic encephalopathy [facility] [id number] [phone]
--- OUTSIDE RECORDS SUMMARY | 2019-05-03 01:33 | XMS REPORT | Continuity of Care Document ---
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 Provider Date Unable to [...] Unknown Never Smoked Cigarettes Smoking Status Reviewed: 04/23/19 Never Smoked Cigarettes ETOH Use Denies alcohol [...] Potassium Chloride ER 1 tab by mouth 30tabs Bobby Carrera MD 03/17/2019 once a day [...] 550mg Tablets three times a day Lactulose 15 milliliters by 946ml Bobby Carrera MD Encephalopathy mouth 4 times a 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, 10GM/15ML Solution titrate to 3-4 bm a day Albuterol Sulfate HFA Unknown 108(90Base) mcg/Act Aerosol Levothyroxine Sodium 1 by mouth every 90tabs Bobby Carrera MD day 50mcg Tablets Metoprolol Tartrate 1 by mouth twice a 60tabs Bobby Carrera MD day 25mg Tablets Immunizations CPT Code Status Date Vaccine Lot # [id number] Given 03/12/2019 Pneumococcal Conjugate Vaccine 13 Valent For [id number] Intramuscular Use Vital Signs Date Vital Result Comment 04/23/2019 1:12pm BP Systolic 136 mmHg BP Diastolic 80 mmHg Body Temperature 97.0 F Heart Rate 65 /min Respiratory Rate 16 /min Height 58 inches 4'10" Weight 134.00 lb BMI (Body Mass Index) 28.0 kg/m2 BSA (Body Surface Area) 1.54 m2 [place] body weight in kilograms 45 kg O2 % BldC Oximetry 95 % 04/21/2019 12:47pm BP Systolic 129 mmHg BP Diastolic 75 mmHg Body Temperature 97.1 F Heart Rate 78 /min Respiratory Rate 16 /min Height 58 inches 4'10" Weight 131.00 lb BMI (Body Mass Index) 27.4 kg/m2 BSA (Body Surface Area) 1.52 m2 [place] body weight in kilograms 45 kg Results Test Acquired Date Facility Test Result H/L Range Note Basic Metabolic 04/21/2019 [facility] Glucose 108 mg/dL High 74-106 1 Panel [address] [place] [address] [phone] BUN 8 mg/dL Normal 7-18 Creatinine 0.8 mg/dL Normal 0.6-1.3 Glom Filtration Rate, Estimate >60 mL/min >60 If >60 mL/min >60 2 BUN/Creat 10.0 ratio Sodium 142 mmol/L Normal 136-145 Potassium 2.9 mmol/L Low 3.5-5.1 Chloride 111 mmol/L High 98-107 Carbon Dioxide 26 mmol/L Normal 21-32 Anion Gap 5 mEq/L Low 8-16 Calcium 8.0 mg/dL Low 8.5-10.1 Comprehensive Metabolic 04/21/2019 [facility] [address] Glucose 114 mg/dL High 74-106 3 Panel [address] [place] [address] [phone] BUN 11 mg/dL Normal 7-18 Creatinine 1.0 mg/dL Normal 0.6-1.3 Glom Filtration Rate, Estimate 59 mL/min >60 If >60 mL/min >60 4 BUN/Creat 11.0 ratio Sodium 139 mmol/L Normal [...] Phosphatase 157 U/L High 45-117 Laboratory 04/21/2019 [facility] [address] Gamma Glutamyl 164 U/L High 5-85 5 test finding [address] [facility] [place] [address] [phone] CBC 03/12/2019 [facility] White Blood Count 8.9 Normal 3.1-10.7 6 W/Automated [address] K/[place] [address] [phone] Red Blood Count 2.71 M/uL Low 3.90-5.40 [...] 40.4-72.8 Lymph % 17.5 % Low 20.0-42.0 [place] % 7.3 % Normal 4.3-13.2 Eo% 4.7 % Normal 0.0-6.6 Bas% 0.9 % Normal 0.0-1.1 Immature Grans 0.9 % Normal 0.0-5.0 NRBC % 0.0 /100WBC < 10/ 100 WBC Neut# 6.10 K/uL Normal 1.8-7.0 Lymph # 1.56 K/uL Normal 1.0-4.0 [place] # 0.65 K/uL Normal 0.3-0.9 Eos # 0.42 K/uL Normal 0.0-0.5 Baso # 0.08 K/uL Normal 0.0-0.1 Immature Grans Absolute 0.08 K/uL NRBC # 0.00 K/uL Comprehensive Metabolic 03/12/2019 [facility] Glucose 122 mg/dL High 74-106 Panel [address] [place] [address] [phone] BUN 21 mg/dL High 7-18 Creatinine 1.1 mg/dL 0.6-1.3 Glom Filtration Rate, Estimate 53 mL/min >60 If >60 mL/min >60 7 BUN/Creat 19.0 ratio Sodium 136 mmol/L Normal [...] Normal 0.2-1.0 Sgot/Ast 13 U/L Low 15-37 8 SGPT/Alt 18 U/L Normal 12-78 Alkaline Phosphatase 148 U/L High 45-117 Reflex add FT3? Y Reflex add FT4? Y Glycohemoglobin 03/12/2019 [facility] Glycohemoglobin 5.3 % Normal 4.2-6.[address] (A1c) [place], [place] [address] [phone] eAG 105 mg/dL LDL Cholesterol Profile 03/12/2019 [facility] Cholesterol 117 mg/dL <[address] [place], [place] [address] [phone] Triglycerides 88 mg/dL <150 11 HDL Cholesterol 32 mg/dL Low >40 12 LDL-Cholesterol 67 mg/dL < 100 13 Reflex add FT3? Y Reflex add FT4? Y TSH Reflex 03/12/2019 [facility] Thyroid Stim 0.58 uIU/mL Normal 0.30-4.20 FT4 And/Or [address] Hormone FT3 [place], [place] [address] [phone] Reflex add FT3? Y Reflex add FT4? Y Magnesium 03/12/2019 [facility] Magnesium 2.3 mg/dL Normal 1.6-2.[address] [place], [place] [address] [phone] Reflex add FT3? Y Reflex add FT4? Y 1 WEAKNESS 2 Note: Persistent reduction for 3 months or more in an eGFR <60 mL/min/1.73 m2 defines CKD. Patients with eGFR values >/=60 mL/min/1.73 m2 may also have CKD if evidence of persistent proteinuria is present. The original MDRD equation for estimated GFR is not valid for patients less than 18 years of age. Additional information may be found at www.kdoqi.org. 3 K72.90 4 Note: Persistent reduction for 3 months or more in an eGFR <60 mL/min/1.73 m2 defines CKD. Patients with eGFR values >/=60 mL/min/1.73 m2 may also have CKD if evidence of persistent proteinuria is present. The original MDRD equation for estimated GFR is not valid for patients less than 18 years of age. Additional information may be found at www.kdoqi.org. [address] CARRERA WITH POTASSIUM AT 1802 04/21/19 6 Z79.899 7 Note: Persistent reduction for 3 months or more in an eGFR <60 mL/min/1.73 m2 defines CKD. Patients with eGFR values >/=60 mL/min/1.73 m2 may also have CKD if evidence of persistent proteinuria is present. The original MDRD equation for estimated GFR is not valid for patients less than 18 years of age. Additional information may be found at www.kdoqi.org. 8 Values below the stated reference ranges of AST and ALT can be seen in normal populations. Clinical correlation is suggested. 9 Elevated levels of HbA1c suggest the need for more aggressive treatment of glycemia. The [place] Diabetes Association recommends that a primary goal of therapy should be a HbA1c of <7% and that physicians should re-evaluate the treatment regimen in patients with HbA1c values consistently >8%. 10 Reference Guidelines*: Desirable: ........... < 200 mg/dL Borderline High: ..... 200-239 mg/dL High: ................ >= 240 mg/dL * The National Cholesterol Education Program (NCEP) 11 Reference Guidelines*: Normal: ............. < 150 mg/dL Borderline High: .... 150-199 mg/dL High: ............... 200-499 mg/dL Very High: .......... > 500 mg/dL * Source: National Cholesterol Education Program (NCEP) 12 Reference Guidelines*: Low HDL: ..... < 40 mg/dL Normal: ..... 40-60 mg/dL Desirable: ... > 60 mg/dL *The National Cholesterol Education Program(NCEP) 13 Reference Guidelines*: Optimal:........... <100 mg/dL Near Optimal....... [...] for screening for osteoporosis Z79.899 Other terminal block assembler (current) drug therapy Assessments Date Code Description Provider 04/23/2019 E87.6 Hypokalemia Bobby Carrera MD 04/23/2019 K72.90 Hepatic failure, unspecified without coma Bobby Carrera MD 04/21/2019 E87.6 Hypokalemia Bobby Carrera MD 04/21/2019 [...] osteoporosis Bobby Carrera MD 03/12/2019 Z79.899 Other terminal block assembler (current) drug therapy Bobby Carrera MD Plan of Treatment Future Appointment(s):08/18/2019 1:10 pm - Bobby Carrera MD at [facility] RD04/23/2019 - Bobby Carrera MDE87.6 HypokalemiaNew Labs:Basic Metabolic Panel, Scheduled: 05/07/19K72.90 Hepatic failure, unspecified without coma Functional Status Description No Information Available Mental Status Description No Information Available Referrals Refer to Dr Reason for Referral Status Appt Date Marylu Bruner MD 68F h/o ETOH abuse, HTN, HLD, Hodgkin's Sent 05/21/2019 lymphoma, breast [place], previous admission for hepatic encephalopathy [address] [place] [address] [phone]
--- OUTSIDE RECORDS SUMMARY | 2019-05-03 01:33 | XMS REPORT | Continuity of Care Document ---
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 Final Problems Active Problems Provider Date Unable to walk Onset: 08/29/2014 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 Bobby Ragsdale MD Onset: site Neoplasm of uncertain behavior of breast Bobby Ragsdale MD Onset: 03/12/2019 Moderate recurrent major depression Bobby Ragsdale MD Onset: 03/12/2019 Hyperlipidemia Bobby Ragsdale MD Onset: 03/12/2019 Essential hypertension Bobby Ragsdale MD Onset: 03/12/2019 Sequela of chronic liver disease Bobby Ragsdale MD Onset: 03/12/2019 Social History Type Date Description Comments Sex Unknown Tobacco Use Start: Unknown Never Smoked Cigarettes Smoking Status Reviewed: 03/12/19 Never Smoked Cigarettes ETOH Use Denies alcohol use Tobacco Use Start: Unknown Patient has never smoked Allergies, Adverse Reactions, Alerts Active Allergies Reaction Severity Comments Date Penicillins 08/29/2014 Medications Active Medications SIG Qnty Indications Ordering Date Provider Venlafaxine HCL 1 by mouth every 90tabs [...] CPT Code Status Date Vaccine Lot # [id number] Given 03/12/2019 Pneumococcal Conjugate Vaccine 13 Valent For [id number] Intramuscular Use Vital Signs Date Vital Result Comment 03/12/2019 1:15pm BP Systolic 108 mmHg BP Diastolic 64 mmHg Body Temperature 99.3 F Heart Rate 78 /min Respiratory Rate 16 /min Height 58 inches 4'10" Weight 136.00 lb BMI (Body Mass Index) 28.4 kg/m2 BSA (Body Surface Area) 1.55 m2 [place] body weight in kilograms 45 kg O2 % BldC Oximetry 99 % Results Description No Information Available Procedures Description No Information Available Medical Devices Description No Information Available Encounters Type Date Location Provider Dx Diagnosis Office Visit 03/12/2019 Family Medicine Bobby Ragsdale MD Z79.899 Other rodent exterminator 1:30p [address] (current) drug therapy K72.90 Hepatic failure, unspecified without coma I10 Essential (primary) hypertension E78.5 Hyperlipidemia, unspecified F33.1 Major depressive disorder, recurrent, moderate Z23 Encounter for immunization Z12.11 Encounter for screening for malignant neoplasm of colon Z00.01 Encounter for general adult medical exam w abnormal findings D48.60 Neoplasm of uncertain behavior of unspecified breast C81.90 Hodgkin lymphoma, unspecified, unspecified site Z13.820 Encounter for screening for osteoporosis Assessments Date Code Description Provider 03/12/2019 Z79.899 Other half-way (current) drug therapy Bobby Ragsdale MD 03/12/2019 K72.90 Hepatic failure, unspecified without coma Bobby Ragsdale MD 03/12/2019 I10 Essential (primary) hypertension Bobby Ragsdale MD 03/12/2019 E78.5 Hyperlipidemia, unspecified Bobby Ragsdale MD 03/12/2019 F33.1 Major depressive disorder, recurrent, moderate Bobby Ragsdale MD 03/12/2019 Z23 Encounter for immunization Bobby Ragsdale MD 03/12/2019 Z12.11 Encounter for screening for malignant neoplasm of Bobby Ragsdale MD colon 03/12/2019 Z00.01 Encounter for general adult medical examination Bobby Ragsdale MD with abnormal findings 03/12/2019 D48.60 Neoplasm of uncertain behavior of unspecified Bobby Ragsdale MD breast 03/12/2019 C81.90 Hodgkin lymphoma, unspecified, unspecified site Bobby Ragsdale MD 03/12/2019 Z13.820 Encounter for screening for osteoporosis Bobby Ragsdale MD Plan of Treatment Future Appointment(s):04/21/2019 1:50 pm - Bobby Ragsdale MD at [facility]03/12/2019 - Bobby Ragsdale MDZ79.899 Other half-way (current) drug therapyNew Labs:CBC W/Automated Diff, Ordered: 03/12/19Comprehensive Metabolic Panel, Ordered: 03/12/19Glycohemoglobin A1c, Ordered: 03/12/19LDL Cholesterol Profile, Ordered: 03/12/19TSH Reflex FT4 And/Or FT3, Ordered: 03/12/19Magnesium , Ordered: 03/12/19K72.90 Hepatic failure, unspecified without comaReferral:Marylu Bruner MD, OugbttvudumctblsW43 Essential (primary) tqvjunlcdyggB88.5 Hyperlipidemia, sryftdryrowU92.1 Major depressive disorder, recurrent, mqxztsgfB81 Encounter for msgfkmlowrlpR35.11 Encounter for screening for malignant neoplasm of lmcuiN15.01 Encounter for general adult medical examination with abnormal rrqdusdzR83.60 Neoplasm of uncertain behavior of unspecified lqjhsfE66.90 Hodgkin lymphoma, unspecified, unspecified siteZ13.820 Encounter for screening for osteoporosisNew Xrays:Dexa Scan, 1 Or More, Scheduled: 03/25/19 Functional Status Description No Information Available Mental Status Description No Information Available Referrals Refer to Dr Reason for Referral Status Appt Date Marylu Bruner MD 68F h/o ETOH abuse, HTN, HLD, Hodgkin's Created lymphoma, breast CA, previous admission for hepatic encephalopathy [address] [id number] [phone]
[2019-05-03 02:18] LABS: INR 1.37 (0.82-1.09)
[2019-05-03 02:21] LABS: ABS Eosinophils 0.3 10^3/ul (0-0.6); ABS Lymphocytes 1.1 10^3/ul (1.0-4.8); ABS Monocytes 0.4 10^3/ul (0-0.8); ABS Neutrophils 2.5 10^3/ul (1.5-7.7); Eosinophil % 7.9 %; Hematocrit 26 % (35-47); Hemoglobin 8.7 g/dL (12.0-16.0); Lymphocyte % 25.4 %; Mean Corpuscular HGB Conc 33 g/dL (31-36); Mean Corpuscular Hemoglobin 28 pg (27-31); Mean Corpuscular Volume 85 fL (80-97); Mean Platelet Volume 8.3 fL (7.4-10.4); Platelet Count 100 10^3/uL (150-450); Red Cell Distribution Width 17 % (10-15); White Blood Count 4.3 10^3/uL (3.5-10.8)
[2019-05-03 02:27] LABS: Albumin 3.3 g/dL (3.2-5.2); Albumin/Globulin Ratio 1.5 (1-3); BUN/Creatinine Ratio 10.4 (8-20); C Reactive Protein 1.98 mg/L (<8.01); Calcium 9.3 mg/dL (8.6-10.3); EGFR African American 90.8 (>60); Globulin 2.2 g/dL (2-4); Potassium 4.6 mmol/L (3.5-5.0); Total Bilirubin 0.7 mg/dL (0.2-1.0); Total Protein 5.5 g/dL (6.4-8.9)
--- NOTE | 2019-05-03 02:30 | ED ---
Complex/Multi-Sys Presentation - HPI Summary HPI Summary: 68 y/o female presented to [facility] complaining of weakness present for 2 weeks. She is also experiencing CP. Pt states that the symptoms began when her new doctor, Dr. Ragsdale, decreased the dosage of her Lactulose in response to her decreased K and Mg levels. She has seen Dr. Johnston for her history of cancer. - History Of Current Complaint Chief Complaint: EDWeakness Hx Obtained From: Patient Onset/Duration: Lasting Weeks, Still Present Timing: Weeks Severity Initially: Moderate Location: Pain At: - chest Associated Signs And Symptoms: Positive: Weakness, Chest Pain - Allergies/Home Medications Allergies/Adverse Reactions: Allergies Allergy/AdvReac Type Severity Reaction Status Date / Time influenza virus vaccine, Allergy See Comment Verified 05/03/19 01:19 specific Penicillins Allergy Unknown Verified 05/03/19 01:19 Reaction Details PMH/Surg Hx/FS Hx/Imm Hx Endocrine/Hematology History: Reports: Hx Anticoagulant Therapy - lovenox, Hx Blood Transfusions, Hx Anemia, Hx Unexplained Bleeding Denies: Hx Diabetes, Hx Systemic Lupus Erythematosus, Hx Thyroid Disease Cardiovascular History: Reports: Hx Deep Vein Thrombosis, Hx Embolism, Hx Hypertension, Other Cardiovascular Problems/Disorders - TACHY Denies: Hx Congestive Heart Failure Respiratory History: Reports: Hx Asthma, Hx Chronic Obstructive Pulmonary Disease (COPD), Hx Pulmonary Embolism, Hx Seasonal Allergies, Other Respiratory Problems/Disorders - PULMONARY EMBOLI GI History: Reports: Hx Gastroesophageal Reflux Disease, Hx Gastrointestinal Bleed, Hx Ulcer, Other GI Disorders - Gastric Bypass, hx GI bleed History: Denies: Hx Dialysis, Hx Renal Disease Musculoskeletal History: Reports: Hx Arthritis - left knee, Hx Back Problems, Hx Orthopedic Injury - left foot, Other Musculoskeletal History - HX OBESITY, S/ P GASTIC BYPASS 2003 Denies: Hx Rheumatoid Arthritis Sensory History: Reports: Hx Contacts or Glasses - reading Denies: Hx Hearing Aid Opthamlomology History: Reports: Hx Contacts or Glasses - reading Neurological History: Denies: Hx CVA Psychiatric History: Reports: Hx Anxiety, Hx Depression - Cancer History Cancer Type, Location and Year: 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 HYSTERECTOMY 2003. GASTRIC BYPASS 2003. D&C. left foot Fx, plates and screws. cholecystectomy Hx Anesthesia Reactions: No - Immunization History Date of Tetanus Vaccine: PT STATES UNSURE Date of Influenza Vaccine: NONE Infectious Disease History: No Infectious Disease History: Reports: Hx Hepatitis - ulcers Denies: Traveled Outside the [place] in Last 30 Days - Family History Known Family History: Positive: Cardiac Disease, Hypertension, Diabetes, Other - CA - Social History Alcohol Use: None Alcohol Amount: "drank 3 doubles last night" Hx Substance Use: No Substance Use Type: Reports: None Substance Use Comment - Amount & Last Used: marijuana cream Hx Tobacco Use: No Smoking Status (MU): Never Smoked Tobacco - Additional Comments History Additional Comments: PMHx: Kidney failure Breast Cx Lymphoma Asthma Pelvic Fx Right shoulder Fx Blood clot in left leg (given Lovenox) 4th degree clement Review of Systems - ROS Summary Review of Systems Summary: Pt takes Magnesium oxide, Cholecalciferol, Albuterol, Lisinopril, Fluticasone- Salmeterol, Ferrous Sulfate, Enoxaparin, Docusate, Diclofenac, Cyanocobalamin, Prednisone, Venlafaxine, Pantoprazole, Montelukast, Metoprolos, Lactulose, and Loperamide. Positive: Chest Pain Positive: Weakness All Other Systems Reviewed And Are Negative: Yes Physical Exam - Summary Physical Exam Summary: General: Elderly (FEMALE). No acute distress. HEENT: Normocephalic, Atraumatic. Eyes: Conjuctiva normal, PERRL. Oropharynx: Clear, mucous membranes moist, (-) exudates. Neck: Soft, FROM, (-) lymphadenopathy, (-) thyromegaly, (-) JVD. Cardiovascular: Normal sinus rhythm, (-) murmur. Lungs: Clear to auscultation bilaterally (-) wheezes, (-) rales, (-) rhonchi. Abdomen: Soft, non-tender, non-distended, (-) organomegaly, normal bowel sounds. Back: (-) CVA tenderness Extremities: No edema. Skin: Warm, dry, (-) rash. Neuro: Alert and oriented x3, no focal deficits. Psychiatric: Mood normal, affect normal. Triage Information Reviewed: Yes Vital Signs On Initial Exam: Initial Vitals Pulse Resp BP Pulse Ox 95 17 127/88 96 05/03/19 00:42 05/03/19 00:42 05/03/19 00:42 05/03/19 00:42 Vital Signs Reviewed: Yes Procedures - Sedation Patient Received Moderate/Deep Sedation with Procedure: No Diagnostics - Vital Signs Vital Signs Temp Pulse Resp BP Pulse Ox 05/03/19 02:00 26 05/03/19 01:58 21 165/73 05/03/19 01:56 17 152/92 05/03/19 01:55 19 154/89 05/03/19 01:42 92 19 138/78 97 05/03/19 01:12 96 21 145/89 99 05/03/19 01:00 95 19 97 05/03/19 00:56 97 15 98 05/03/19 00:54 98.6 F 94 20 127/88 98 05/03/19 00:42 95 17 127/88 96 - Laboratory Lab Results: Lab Results 05/03/19 05/03/19 05/03/19 Range/Units 01:59 01:59 01:59 WBC 4.3 (3.5-10.8) 10^3/uL RBC 3.10 L (3.70-4.87) 10^6 /uL Hgb 8.7 L (12.0-16.0) g/dL Hct 26 L (35-47) % MCV 85 (80-97) fL MCH 28 (27-31) pg MCHC 33 (31-36) g/dL RDW 17 H (10-15) % Plt Count 100 L (150-450) 10^3/uL MPV 8.3 (7.4-10.4) fL Neut % (Auto) 57.8 % Lymph % (Auto) 25.4 % [place] % (Auto) 8.2 % Eos % (Auto) 7.9 % Baso % (Auto) 0.7 % Absolute Neuts (auto) 2.5 (1.5-7.7) 10^3/ul Absolute Lymphs (auto) 1.1 (1.0-4.8) 10^3/ul Absolute Monos (auto) 0.4 (0-0.8) 10^3/ul Absolute Eos (auto) 0.3 (0-0.6) 10^3/ul Absolute Basos (auto) 0.0 (0-0.2) 10^3/ul Absolute Nucleated RBC 0.0 10^3/ul Nucleated RBC % 0.0 INR (Anticoag Therapy) 1.37 H (0.82-1.09) Sodium 139 (135-145) mmol/L Potassium 4.6 (3.5-5.0) mmol/L Chloride 111 (101-111) mmol/L Carbon Dioxide 24 (22-32) mmol/L Anion Gap 4 (2-11) mmol/L BUN 8 (6-24) mg/dL Creatinine 0.77 (0.51-0.95) mg/dL Est GFR ( Amer) 90.8 (>60) Est GFR (Non-Af Amer) 75.0 (>60) BUN/Creatinine Ratio 10.4 (8-20) Glucose 93 (70-100) mg/dL Lactic Acid (0.5-2.0) mmol/L Calcium 9.3 (8.6-10.3) mg/dL Magnesium 2.0 (1.9-2.7) mg/dL Total Bilirubin 0.70 (0.2-1.0) mg/dL AST 22 (13-39) U/L ALT 14 (7-52) U/L Alkaline Phosphatase 126 H (34-104) U/L Troponin I Pending C-Reactive Protein 1.98 (<8.01) mg/L Total Protein 5.5 L (6.4-8.9) g/dL Albumin 3.3 (3.2-5.2) g/dL Globulin 2.2 (2-4) g/dL Albumin/Globulin Ratio 1.5 (1-3) TSH Pending 05/03/19 Range/Units 01:59 WBC (3.5-10.8) 10^3/uL RBC (3.70-4.87) 10^6 /uL Hgb (12.0-16.0) g/dL Hct (35-47) % MCV (80-97) fL MCH (27-31) pg MCHC (31-36) g/dL RDW (10-15) % Plt Count (150-450) 10^3/uL MPV (7.4-10.4) fL Neut % (Auto) % Lymph % (Auto) % [place] % (Auto) % Eos % (Auto) % Baso % (Auto) % Absolute Neuts (auto) (1.5-7.7) 10^3/ul Absolute Lymphs (auto) (1.0-4.8) 10^3/ul Absolute Monos (auto) (0-0.8) 10^3/ul Absolute Eos (auto) (0-0.6) 10^3/ul Absolute Basos (auto) (0-0.2) 10^3/ul Absolute Nucleated RBC 10^3/ul Nucleated RBC % INR (Anticoag Therapy) (0.82-1.09) Sodium (135-145) mmol/L Potassium (3.5-5.0) mmol/L Chloride (101-111) mmol/L Carbon Dioxide (22-32) mmol/L Anion Gap (2-11) mmol/L BUN (6-24) mg/dL Creatinine (0.51-0.95) mg/dL Est GFR ( Amer) (>60) Est GFR (Non-Af Amer) (>60) BUN/Creatinine Ratio (8-20) Glucose (70-100) mg/dL Lactic Acid 0.9 (0.5-2.0) mmol/L Calcium (8.6-10.3) mg/dL Magnesium (1.9-2.7) mg/dL Total Bilirubin (0.2-1.0) mg/dL AST (13-39) U/L ALT (7-52) U/L Alkaline Phosphatase (34-104) U/L Troponin I C-Reactive Protein (<8.01) mg/L Total Protein (6.4-8.9) g/dL Albumin (3.2-5.2) g/dL Globulin (2-4) g/dL Albumin/Globulin Ratio (1-3) TSH Result Diagrams: 05/03/19 01:59 05/03/19 01:59 Lab Statement: Any lab studies that have been ordered have been reviewed, and results considered in the medical decision making process. - EKG 0148 Cardiac Rate: NL EKG Rhythm: Sinus Rhythm Summary of EKG Findings: EKG at 0148 reveals normal sinus rhythm with rate of 85 BPM, no acute changes, no ischemic changes. No STEMI. This EKG was reviewed and interpreted by Dr. Gordon. Complex Multi-Symp Course/Dx Course Of Treatment: 68-year-old female presents from home with weakness and generalized muscle pain. Patient states she just doesn't feel well. Patient states she has been having these symptoms for about 2 weeks now. Ever since her new doctor decreased her lactulose level. Patient also has multiple other recent medical problems. Has had multiple replacement therapies for her potassium and magnesium. Has known anemia. Previously has been on iron therapy. Patient states that she has actually taken 3 of her magnesium and 3 of her potassium pills daily in the left she is only supposed to be taking too. She has no specific findings on exam. Her workup demonstrates a normal potassium and magnesium level. She responds well to fluid. He is feeling better. Patient is discharged home. Follow-up with PCP. Follow-up sooner for any worsening symptoms. - Diagnoses Differential Diagnoses/HQI/PQRI: Cardiac Ischemia, Metabolic Abnormality, Sepsis , Urinary Tract Infection Provider Diagnoses: Weakness Discharge ED - Sign-Out/Discharge Documenting (check all that apply): Patient Departure - dc - Discharge Plan Condition: Stable Disposition: HOME Patient Education Materials: Weakness (ED) Referrals: Bobby Ragsdale MD [Primary Care Provider] - Additional Instructions: Follow up with your primary care physician in 1-3 days. If you experience new or worsening symptoms please return to the ER. - Billing Disposition and Condition Condition: STABLE Disposition: Home - Attestation Statements Document Initiated by Stu: Yes Documenting Baileeibe: Ajith Gardner Provider For Whom Stu is Documenting (Include Credential): Linda Gordon MD Scribe Attestation: Ajith Jarrett, scribed for Linda Gordon MD on 05/03/19 at 0628. Scribe Documentation Reviewed: Yes Provider Attestation: The documentation as recorded by the Ajith neil accurately reflects the service I personally performed and the decisions made by me, Linda Gordon MD Status of Scribe Document: Viewed
[2019-05-03 03:14] LABS: Urine Appearance Clear; Urine Bilirubin Negative (Negative); Urine Blood Negative (Negative); Urine Color Yellow; Urine Glucose Negative (Negative); Urine Ketones Negative (Negative); Urine Nitrite Negative (Negative); Urine Protein Negative (Negative); Urine Specific Gravity 1.016 (1.010-1.030); Urine Urobilinogen Negative (Negative)
[2019-05-03 03:16] LABS: Urine Bacteria Absent (Absent); Urine Red Blood Cell Trace(0-2/hpf) (Absent); Urine White Blood Cell Trace(0-5/hpf) (Absent)
[2019-05-03 03:25] LABS: TSH (Thyroid Stimulating Horm) 0.29 mcIU/mL (0.34-5.60)
[2019-05-03 05:53] VITALS: BP 146/99
== END 2019-05-03 05:50 | disposition home or self-care (01) ==
LOC: ED 00:49
DX: R53.1 Weakness (principal); R07.89 Other chest pain; I10 Essential (primary) hypertension; J44.9 Chronic obstructive pulmonary disease, unspecified; N19 Unspecified kidney failure; Z86.718 Personal history of other venous thrombosis and embolism; Z79.01 Long term (current) use of anticoagulants; Z85.3 Personal history of malignant neoplasm of breast; Z85.71 Personal history of Hodgkin lymphoma; Z88.0 Allergy status to penicillin; Z88.7 Allergy status to serum and vaccine
CPT/HCPCS: 36415; 80053; 81003; 81015; 82140; 83605; 83735; 84443; 84484; 85025; 85610; 86140; 87086; 93005; 99284

== ENCOUNTER 2019-05-08 22:20 | Inpatient (IN) | payer MEDICARE ==
[2019-05-08] MEDS ORDERED: NS 0.9% 1000 ML** 1,000 ML IV ONE (22:35)
--- NOTE | 2019-05-08 22:35 | ED ---
GI/ HPI - HPI Summary HPI Summary: 68-year-old female with significant past medical history of Hodgkin's lymphoma, breast cancer, hypertension, hyperlipidemia, COPD, DVT/PE bilateral mastectomy, gastric bypass, hysterectomy, multiple musculoskeletal complaints presents the emergency department today with chief complaint of 3 bright red bloody bowel movements which began this evening. Patient states she currently feels dizzy and weak. She believes she may have "passed out" this evening which caused her to call ambulance for evaluation. Patient otherwise feels well and denies fever , chest pain, abdominal pain, pain with urination, painful bowel movements, diarrhea, vomiting. - History of Current Complaint Chief Complaint: EDGIBleed Time Seen by Provider: 05/08/19 22:32 Stated Complaint: RECTAL BLEEDING PER EMS Hx Obtained From: Patient Onset/Duration: Started Hours Ago Timing: Constant Severity: Moderate Current Severity: Moderate Pain Intensity: 0 Associated Signs and Symptoms: Positive: Dizziness, Weakness, Syncope, Blood- Streaked Stool, Blood w/Stool, Lightheadedness, Pale - Additional Pertinent History Primary Care Physician: JACOB - Allergy/Home Medications Allergies/Adverse Reactions: Allergies Allergy/AdvReac Type Severity Reaction Status Date / Time influenza virus vaccine, Allergy See Comment Verified 05/08/19 22:30 specific Penicillins Allergy Unknown Verified 05/08/19 22:30 Reaction Details Home Medications: Home Medications Acetaminophen [Acetaminophen Extra Strength] 500 mg PO Q6HR PRN 05/08/19 [ History Confirmed 05/08/19] Folic Acid TAB* [Folvite TAB*] 1 mg PO DAILY 05/08/19 [History Confirmed ] Ibuprofen TAB* [Advil TAB*] 400 mg PO Q6H PRN 05/08/19 [History Confirmed ] Lactulose* 45 ml PO QID 05/08/19 [History Confirmed 05/08/19] Levothyroxine TAB* [Synthroid TAB*] 50 mcg PO DAILY 05/08/19 [History Confirmed 05/08/19] Menthol [Biofreeze] 4 % TOPICAL BID PRN 05/08/19 [History Confirmed 05/08/19] Omeprazole CAP (NF) [Prilosec CAP* 20 MG] 40 mg PO QAM 05/08/19 [History Confirmed 05/08/19] RiFAXimin* [Xifaxan*] 550 mg PO BID 05/08/19 [History Confirmed 05/08/19] Spironolactone [Aldactone] 100 mg PO QAM 05/08/19 [History Confirmed 05/08/19] Thiamine TAB* [Vitamin B-1 TAB*] 100 mg PO QAM 05/08/19 [History Confirmed 05/08] Umeclidinium 62.5 MDI(NF) [Incruse ELLIPTA MDI (NF)] 1 puff INH DAILY 05/08/19 [ History Confirmed 05/08/19] Venlafaxine CAP (NF) [Effexor CAP (NF)] 75 mg PO DAILY 05/08/19 [History Confirmed 05/08/19] PMH/Surg Hx/FS Hx/Imm Hx Endocrine/Hematology History: Reports: Hx Anticoagulant Therapy - lovenox, Hx Blood Transfusions, Hx Anemia, Hx Unexplained Bleeding Denies: Hx Diabetes, Hx Systemic Lupus Erythematosus, Hx Thyroid Disease Cardiovascular History: Reports: Hx Deep Vein Thrombosis, Hx Embolism, Hx Hypertension, Other Cardiovascular Problems/Disorders - TACHY Denies: Hx Congestive Heart Failure Respiratory History: Reports: Hx Asthma, Hx Chronic Obstructive Pulmonary Disease (COPD), Hx Pulmonary Embolism, Hx Seasonal Allergies, Other Respiratory Problems/Disorders - PULMONARY EMBOLI GI History: Reports: Hx Gastroesophageal Reflux Disease, Hx Gastrointestinal Bleed, Hx Ulcer, Other GI Disorders - Gastric Bypass, hx GI bleed History: Denies: Hx Dialysis, Hx Renal Disease Musculoskeletal History: Reports: Hx Arthritis - left knee, Hx Back Problems, Hx Orthopedic Injury - left foot, Other Musculoskeletal History - HX OBESITY, S/ P GASTIC BYPASS 2003 Denies: Hx Rheumatoid Arthritis Sensory History: Reports: Hx Contacts or Glasses - reading Denies: Hx Hearing Aid Opthamlomology History: Reports: Hx Contacts or Glasses - reading Neurological History: Denies: Hx CVA Psychiatric History: Reports: Hx Anxiety, Hx Depression - Cancer History Cancer Type, Location and Year: 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 HYSTERECTOMY 2003. GASTRIC BYPASS 2003. D&C. left foot Fx, plates and screws. cholecystectomy Hx Anesthesia Reactions: No - Immunization History Date of Tetanus Vaccine: PT STATES UNSURE Date of Influenza Vaccine: NONE Infectious Disease History: No Infectious Disease History: Reports: Hx Hepatitis - ulcers Denies: Traveled Outside the [place] in Last 30 Days - Family History Known Family History: Positive: Cardiac Disease, Hypertension, Diabetes, Other - [place] - Social History Alcohol Use: None Alcohol Amount: "drank 3 doubles last night" Hx Substance Use: No Substance Use Type: Reports: None Substance Use Comment - Amount & Last Used: marijuana cream Hx Tobacco Use: No Smoking Status (MU): Never Smoked Tobacco Review of Systems Positive: Fatigue. Negative: Fever, Chills, Skin Diaphoresis Eyes: Negative ENT: Negative Cardiovascular: Negative Respiratory: Negative Gastrointestinal: Negative Genitourinary: Negative Musculoskeletal: Negative Skin: Negative Positive: Weakness Psychological: Normal All Other Systems Reviewed And Are Negative: Yes Physical Exam - Summary Physical Exam Summary: Patient is in no acute distress. There is generalized pallor noted in conversation with the patient. Patient is alert and oriented 3. Rectal exam was done with no pain. No evidence of external or internal hemorrhoids or anal fissure. Occult stool samples obtained. After rectal exam sirisha tinged stool was noted Triage Information Reviewed: Yes Vital Signs On Initial Exam: Initial Vitals Temp Pulse Resp BP Pulse Ox 99.2 F 98 15 108/68 96 05/08/19 22:26 05/08/19 22:26 05/08/19 22:26 05/08/19 22:26 05/08/19 22:26 Vital Signs Reviewed: Yes Appearance: Positive: Well-Appearing, No Pain Distress, Well-Nourished Skin: Positive: Warm, Skin Color Reflects Adequate Perfusion, Pale Eyes: Positive: EOMI, WILLIAM ENT: Positive: Hearing grossly normal Respiratory/Lung Sounds: Positive: Clear to Auscultation, Breath Sounds Present Cardiovascular: Positive: RRR, S1, S2 Abdomen Description: Positive: Nontender, Soft Bowel Sounds: Positive: Present Musculoskeletal: Positive: Strength/ROM Intact Neurological: Positive: Sensory/Motor Intact, Alert, Oriented to Person Place, Time, Normal Gait, Facial Symmetry, Speech Normal Psychiatric: Positive: Normal, Affect/Mood Appropriate AVPU Assessment: Alert Procedures - Sedation Patient Received Moderate/Deep Sedation with Procedure: No Diagnostics - Vital Signs Vital Signs Temp Pulse Resp BP Pulse Ox 05/08/19 22:26 99.2 F 98 15 108/68 96 - Laboratory Result Diagrams: 05/08/19 22:56 05/08/19 22:56 Lab Statement: Any lab studies that have been ordered have been reviewed, and results considered in the medical decision making process. GIGU Course/Dx - Course Course Of Treatment: Patient was evaluated in the emergency department today for bloody bowel movements. Patient was seen and examined her vitals were stable and she was afebrile. EKG was done promptly which shows no evidence of study. Normal sinus rhythm at a rate of 86 bpm with normal axis, normal [place] interval. Borderline QTC prolongation. Laboratory studies show Laboratory studies show no leukocytosis. H&H returned as 7.2/.this is significantly decreased when compared to recent study done on 05/03/19 when H&H was 8.7/. INR slightly elevated at 1.43. APTT is within normal limits. There are no significant electrolyte abnormalities. Fecal occult stool positive +. Consent was obtained and pt was given 1 unit of PRBCs, normal saline nad protonix drip for GI bleed. Dr. Islas consulted at 2320 for admission of the patient. Dr. Islas agreed to admit for anemia and GI bleed work up. - Diagnoses Differential Diagnoses - Female: Diverticulosis, Hemorrhoids, Ischemic Bowel, Other - Lower GI bleed Provider Diagnoses: Anemia, GI bleed - Physician Notifications Discussed Care Of Patient With: Mellisa Islas - To admit the patient for anemia and GI bleed workup. Instructed by Provider To: Admit As Inpatient Admit/Transition Orders Completed By ED Provider: No Discharge ED - Sign-Out/Discharge Documenting (check all that apply): Patient Departure - Discharge Plan Condition: Stable Disposition: ADMITTED TO [facility] - Billing Disposition and Condition Condition: STABLE Disposition: Admitted to [facility]
[2019-05-08 23:08] LABS: ABS Basophils 0.1 10^3/ul (0-0.2); ABS Eosinophils 0.4 10^3/ul (0-0.6); ABS Lymphocytes 1.4 10^3/ul (1.0-4.8); ABS Monocytes 0.5 10^3/ul (0-0.8); ABS Neutrophils 4.8 10^3/ul (1.5-7.7); Eosinophil % 5.3 %; Hematocrit 22 % (35-47); Hemoglobin 7.2 g/dL (12.0-16.0); Lymphocyte % 19.4 %; Mean Corpuscular HGB Conc 32 g/dL (31-36); Mean Corpuscular Hemoglobin 28 pg (27-31); Mean Corpuscular Volume 85 fL (80-97); Mean Platelet Volume 8.5 fL (7.4-10.4); Platelet Count 132 10^3/uL (150-450); Red Blood Count 2.62 10^6 /uL (3.70-4.87); Red Cell Distribution Width 18 % (10-15)
[2019-05-08] MEDS ORDERED: Pantoprazole* 80 mg IN NS 80 MG/250 ML BAG IV ONE (23:10)
[2019-05-08 23:19] LABS: Activated Partial Thrombo Time 30.5 seconds (26.0-38.0); INR 1.43 (0.82-1.09)
[2019-05-08 23:25] LABS: ALT 11 U/L (7-52); AST 16 U/L (13-39); Albumin/Globulin Ratio 1.6 (1-3); Alkaline Phosphatase 93 U/L (34-104); Anion Gap 6 mmol/L (2-11); BUN/Creatinine Ratio 30.1 (8-20); Blood Urea Nitrogen 22 mg/dL (6-24); C Reactive Protein 1.71 mg/L (<8.01); CO2 Carbon Dioxide 26 mmol/L (22-32); Calcium 8.8 mg/dL (8.6-10.3); Chloride 109 mmol/L (101-111); EGFR African American 96.5 (>60); EGFR Non-African American 79.8 (>60); Globulin 1.9 g/dL (2-4); Glucose 105 mg/dL (70-100); Magnesium 1.5 mg/dL (1.9-2.7); Potassium 4.6 mmol/L (3.5-5.0); Sodium 141 mmol/L (135-145); Total Protein 4.9 g/dL (6.4-8.9)
[2019-05-08 23:27] LABS: Troponin I 0.01 ng/mL (<0.03)
[2019-05-09] MEDS ORDERED: NS 0.9% 1000 ML** 1,000 ML IV SCH (00:15)
[2019-05-09] MEDS ORDERED: Magnesium Sulf 4 GM/100 ML IV* 4,000 MG/100 ML BAG IVPB ONE (00:22)
[2019-05-09 00:37] LABS: % Iron Saturation 15 % (15-55); Iron 50 ug/dL (50-212); Total Iron Binding Capacity 340 mcg/dL (250-450); Transferrin 243 mg/dL (203-362)
[2019-05-09] MEDS ORDERED: Iron Sucrose* 200 MG in NS 0.9% 100 ML* 100 ML IVPB ONE (00:39)
[2019-05-09] MEDS ORDERED: Ondansetron INJ* 2 MG/ML VIAL IV PRN (00:45)
[2019-05-09] MEDS ORDERED: Octreotide Acetate* 50 MCG in NS 0.9% 50 ML* 50 ML IV ONE (00:56)
[2019-05-09 00:59] LABS: Ferritin 18.5 ng/mL (11-307)
[2019-05-09 01:03] LABS: Folate 14.38 ng/mL (>3.99)
--- NOTE | 2019-05-09 04:25 | HP ---
HISTORY AND PHYSICAL: DATE OF ADMISSION: 05/09/19 PROVIDER: Xavier Olivera NP PRIMARY CARE PHYSICIAN: Dr. Ragsdale. ATTENDING PHYSICIAN: Dr. Islas.* (DICTATED BY XAVIER OLIVERA NP) CHIEF COMPLAINT: Bright red blood per rectum. HISTORY OF PRESENT ILLNESS: This is a 68-year-old female with a past medical history significant for breast cancer and Hodgkin's lymphoma and previous GI bleeds, who came to the emergency room on 05/08/19 after reports of passing blood through both her rectum and in her vomit. She started vomiting in the a.m. of the 05/08/19 and continued to vomit profusely till early afternoon, then at that point she had a bowel movement that was also bright red, at which point she feels like she may have passed out because next thing she knew she woke up to someone knocking on her door around 9 p.m., at which point, when she got up, she had 2 more bloody bowel movements in her toilet. She reports feeling weak and dizzy. She states that she has not had any alcoholic beverages to drink in the past 2 years. She only seldom uses her ibuprofen and has had no other injury to her abdomen or rectum. In the emergency room, she received 2 units of packed red blood cells, was started on a Protonix and octreotide drip. Hospitalists were asked to evaluate the patient for admission. PAST MEDICAL HISTORY: Hodgkin's lymphoma, right breast cancer, hypertension, hyperlipidemia, hypothyroidism, COPD, DVT, PE, GI bleed, ulcer and anastomosis from her previous gastric bypass, left knee arthritis, anxiety, depression, and cirrhosis. PAST SURGICAL HISTORY: Left knee hemiarthroplasty, cholecystectomy, bilateral mastectomy, gastric bypass, hysterectomy, and left foot ORIF. HOME MEDICATIONS: 1. Vitamin D 2000 units daily. 2. Cyanocobalamin 1000 mcg p.o. daily. 3. Ferrous sulfate 25 mg p.o. q.a.m. 4. Folic acid 1 mg p.o. daily. 5. Lactulose 30 mL p.o. 4 times a day. 6. Levothyroxine 50 mcg p.o. daily. 7. Magnesium oxide 400 mg p.o. daily. 8. Acetaminophen 500 mg p.o. q.6 hours p.r.n. 9. Venlafaxine 75 mg p.o. daily. 10. Ibuprofen 400 mg p.o. q.6 hours p.r.n. 11. Rifaximin 550 mg p.o. b.i.d. 12. Metoprolol tartrate 25 mg p.o. b.i.d. 13. Magnesium oxide 400 mg p.o. daily. 14. Omeprazole 40 mg p.o. daily. 15. Folic acid 1 mg p.o. daily. 16. Thiamine 100 mg p.o. q.a.m. 17. Spironolactone 100 mg p.o. q.a.m. 18. Multivitamin 1 tab p.o. daily. 19. Menthol Biofreeze 4% topically b.i.d. p.r.n. ALLERGIES: INFLUENZA VIRUS VACCINE, PENICILLIN. FAMILY HISTORY: Sister had heart disease. SOCIAL HISTORY: Has never used any tobacco. Stopped drinking 2 years ago, which before she had EtOH abuse. Denies any recreational substance use. She is on Workmen's Comp disability secondary to back pain. She is not . REVIEW OF SYSTEMS: A 12-point system review was performed. All pertinent positives are in the HPI. Pertinent negatives include no chest pain, palpitations, shortness of breath, abdominal pain, fever or chills. PHYSICAL EXAMINATION GENERAL: This is a well-developed woman, seen resting in the bed, in no acute distress. VITAL SIGNS: 98.6 Fahrenheit, 104 pulse, 19 respirations, 98% oxygen on room air and 120/67 blood pressure. HEENT: Conjunctivae pink and moist. PERRLA. EOMs intact. Oropharynx clear. Mucous membranes moist. NECK: Supple. RESPIRATORY: Lung sounds clear throughout bilaterally on room air. CARDIAC: S1, S2 present. Heart rate regular though tachycardic with no murmurs , gallops or rubs appreciated. ABDOMEN: Soft, tender to the right upper quadrant. Positive bowel sounds x4. MUSCULOSKELETAL: No clubbing or cyanosis of the digits. Full range of motion. SKIN: No rashes or open areas appreciated. NEUROLOGIC: Sensation intact to light touch. No focal deficits appreciated. PSYCH: She is alert and oriented x3. Thought content organized. DIAGNOSTIC STUDIES/LAB DATA: Pertinent lab data: RBC 2.62, hemoglobin 7.2, hematocrit 22, RDW 18, platelet count 132. INR 1.43. BUN/creatinine ratio 30.1 , glucose 105, lactic acid 1.4, magnesium 1.5. Total protein 4.9, albumin 3.0, globulin 1.9, lipase less than 10. Vitamin B12 of 1124, folate 14.38, iron 50, TIBC 340, percent iron saturation 15, unsaturated iron binding less than 325, transferrin 243, ferritin 18.5. Diagnostic Studies: None. ASSESSMENT AND PLAN: My impression is this is a 68-year-old female with a past medical history significant for Hodgkin's lymphoma, breast cancer, and previous gastrointestinal bleeds, who is admitted on 05/09/19 for upper and lower gastrointestinal bleed likely secondary to esophageal varices or an anastomotic leak. 1. Gastrointestinal bleed. The patient has had blood in both in her vomit and in her stools. We will send a stool for guaiac and if she vomits, we will send for gastric occult. I suspect that this bleed is secondary to either esophageal varices as she has advanced liver disease or could be secondary to an anastomotic leak as she previously had had after her gastric bypass. For now , we will keep her n.p.o., consult GI in the morning. Received 2 units of blood in the ED. Does not need iron sucrose as she is not iron deficient, which tells me that this bleed is acute and not chronic and due to the suspect of esophageal varices, we will also start her on octreotide drip as well as Protonix drip. 2. Hypomagnesemia. Her magnesium level was 1.5 likely secondary to her vomiting. Potassium level was adequate at 4.6. We will replete with 4 g of IV magnesium. 3. Hyperlipidemia. The patient is not taking any medications for this. 4. Hypertension. Continue spironolactone. 5. Anxiety and depression. Continue venlafaxine. 6. Chronic liver disease. Continue rifaximin and lactulose. Liver enzymes were normal upon admission with a total bilirubin of 0.8 and AST 16, ALT 11. Ammonia level was 35. 7. Hypothyroidism. She is to continue her levothyroxine. 8. Previous EtOH abuse. The patient denies having had any alcohol for 2 years. We will continue folic acid and thiamine supplementation. 9. DVT prophylaxis: Initiate SCDs, as the patient has an active GI bleed, anticoagulants are contraindicated. 10. Code status: Full code. DISPOSITION: To admit OBV to [facility]. CONDITION: Guarded. TIME SPENT: Time spent on the patient is 60 minutes with 30 of that spent face to face. XAVIER OLIVERA, PEDIATRIC PHYSICIAN [id number]/[facility]PS #: [id number] MTDD
[2019-05-09] MEDS: Octreotide Acetate* 500 MCG in NS 0.9% 100 ML* 100 ML IV SCH (04:51)
[2019-05-09 07:39] LABS: BUN/Creatinine Ratio 27.9 (8-20); Calcium 7.8 mg/dL (8.6-10.3); EGFR African American 104.7 (>60); EGFR Non-African American 86.6 (>60); Potassium 3.6 mmol/L (3.5-5.0)
[2019-05-09 07:43] LABS: ABS Eosinophils 0.3 10^3/ul (0-0.6); ABS Lymphocytes 1.3 10^3/ul (1.0-4.8); ABS Monocytes 0.2 10^3/ul (0-0.8); ABS Neutrophils 1.9 10^3/ul (1.5-7.7); Eosinophil % 7.7 %; Hematocrit 21 % (35-47); Lymphocyte % 35.2 %; Mean Corpuscular HGB Conc 33 g/dL (31-36); Mean Corpuscular Hemoglobin 28 pg (27-31); Mean Corpuscular Volume 84 fL (80-97); Nucleated Red Blood Cells % 0.1; Red Cell Distribution Width 18 % (10-15); White Blood Count 3.7 10^3/uL (3.5-10.8)
[2019-05-09 08:11] LABS: Mean Platelet Volume 8.2 fL (7.4-10.4); Platelet Count 82 10^3/uL (150-450)
[2019-05-09] MEDS ORDERED: Spironolactone TAB* 25 MG PO SCH (09:00)
[2019-05-09] MEDS ORDERED: Ferrous Sulfate TAB* 325 MG PO SCH (09:00)
[2019-05-09] MEDS ORDERED: Montelukast Sodium TAB* 10 MG PO SCH (09:00)
[2019-05-09] MEDS ORDERED: Umeclidinium 62.5 MDI(NF) MDI INH SCH (09:00)
[2019-05-09] MEDS: Cholecalciferol TAB* 1000 UNITS PO SCH (09:17)
[2019-05-09] MEDS: Metoprolol Tartrate TAB* 25 MG PO SCH ×2 (09:20→22:38)
[2019-05-09] MEDS: Cyanocobalamin TAB* 500 MCG PO SCH (09:21)
[2019-05-09] MEDS: Magnesium Oxide TAB* 400 MG PO SCH (09:21)
[2019-05-09] MEDS: Levothyroxine TAB* 50 MCG TAB PO SCH (09:21)
[2019-05-09] MEDS: Folic Acid TAB* 1 MG PO SCH (09:21)
[2019-05-09] MEDS: CMC:Venlafaxine TAB (NF) 25 MG TAB PO SCH (09:22)
[2019-05-09] MEDS: RiFAXimin* 550 MG TAB PO SCH ×2 (09:22→22:38)
[2019-05-09] MEDS: Thiamine TAB* 100 MG TAB PO SCH (09:22)
[2019-05-09] MEDS: Multivitamins/Minerals TAB PO SCH (09:22)
[2019-05-09] MEDS: Pantoprazole* 80 mg IN NS 80 MG/250 ML BAG IV SCH (11:18)
--- NOTE | 2019-05-09 13:57 | PN ---
Subjective Date of Service: 05/09/19 Interval History: Patient is still having large volumes of BRBPR with some urgency. Patient is not having N/V or Hematemesis. Patient denies dizziness on ambulation or presyncope. Patient denies abdominal pain or pain with bowel movements. Family History: Unchanged from Admission Social History: Unchanged from Admission Past Medical History: Unchanged from Admission Objective Active Medications: Acetaminophen (Tylenol Tab*) 650 mg PO Q4H PRN PRN Reason: PAIN - MILD Cholecalciferol (Vitamin D Tab*) 2,000 units PO DAILY [facility] Last Admin: 05/09/19 09:17 Dose: Not Given Cyanocobalamin (Vitamin B12 Tab*) 1,000 mcg PO DAILY [facility] Last Admin: 05/09/19 09:21 Dose: Not Given Folic Acid (Folvite Tab*) 1 mg PO DAILY [facility] Last Admin: 05/09/19 09:21 Dose: Not Given Sodium Chloride (Ns 0.9% 1000 Ml) 1,000 mls @ 100 mls/hr IV PER RATE [facility] Last Admin: 05/09/19 04:54 Dose: 100 mls/hr Pantoprazole Sodium (Protonix Iv Bag*) 80 mg in 250 mls @ 25 mls/hr IV Q10H [facility] Last Admin: 05/09/19 11:18 Dose: 25 mls/hr Octreotide Acetate 500 mcg/ (Sodium Chloride) 101 mls @ 10.1 mls/hr IV .ENTER FREQUENCY [facility] Last Admin: 05/09/19 04:51 Dose: 10.1 mls/hr Lactulose (Lactulose*) 30 ml PO QID [facility] Last Admin: 05/09/19 13:46 Dose: Not Given Levothyroxine Sodium (Synthroid Tab*) 50 mcg PO DAILY [facility] Last Admin: 05/09/19 09:21 Dose: Not Given Magnesium Oxide (Magox 400 Tab*) 400 mg PO DAILY [facility] Last Admin: 05/09/19 09:21 Dose: Not Given Metoprolol Tartrate (Lopressor Tab*) 25 mg PO BID [facility] Last Admin: 05/09/19 09:20 Dose: 25 mg Multivitamins/Minerals (Theragran/Minerals Tab*) 1 tab PO DAILY [facility] Last Admin: 05/09/19 09:22 Dose: Not Given Ondansetron HCl (Zofran Inj*) 4 mg IV Q4H PRN PRN Reason: NAUSEA/VOMITING Rifaximin (Xifaxan*) 550 mg PO BID [facility] Last Admin: 05/09/19 09:22 Dose: Not Given Thiamine HCl (Vitamin B-1 Tab*) 100 mg PO QAM [facility] Last Admin: 05/09/19 09:22 Dose: Not Given Venlafaxine HCl (Effexor Tab (Nf)) 75 mg PO DAILY [facility]; Protocol Last Admin: 05/09/19 09:22 Dose: Not Given Vital Signs - 8 hr 05/09/19 08:00 Temperature 98.6 F Pulse Rate 92 Respiratory 20 Rate Blood Pressure 113/65 (mmHg) O2 Sat by Pulse 98 Oximetry Oxygen Devices in Use Now: None Appearance: Patient is a 68yo female who appears stated age and is sitting in the bed in [facility]. Eyes: No Scleral Icterus, PERRLA Ears/Nose/Mouth/Throat: NL Teeth, Lips, Gums, Clear Oropharnyx Neck: NL Appearance and Movements; NL JVP, Trachea Midline Respiratory: Symmetrical Chest Expansion and Respiratory Effort, Clear to Auscultation Cardiovascular: NL Sounds; No Murmurs; No JVD, RRR, No Edema Abdominal: NL Sounds; No Tenderness; No Distention, No Hepatosplenomegaly Lymphatic: No Cervical Adenopathy Extremities: No Edema, No Clubbing, Cyanosis Skin: No Rash or Ulcers, No Nodules or Sclerosis Neurological: Alert and Oriented x 3, NL Sensation, NL Muscle Strength and Tone , - - CN II-XII intact. Result Diagrams: 05/09/19 07:05 05/09/19 07:05 Microbiology and Other Data: Microbiology 05/08/19 22:40 Stool Occult Blood (HUANG) - Final Stool Assess/Plan/Problems-Billing Assessment: Patient is a 68yo with a PMH for Questionable Liver Disease, Gastric Bypass with Marginal Erosions, HTN, here with GIB with concern for recurrent erosion vs. Variceal bleeding S/P 3u and pending endoscopy. - Patient Problems (1) GIB (gastrointestinal bleeding) Current Visit: No Status: Acute Code(s): K92.2 - GASTROINTESTINAL HEMORRHAGE , UNSPECIFIED SNOMED Code(s): 34732623 Comment: - Unclear cause - History liver disease and Gastric Bypass - Varices vs UGI Bleed, with both hematemesis and BRBPR, likely quick GI transit. - History multiple GIB, no documented varices. - On Protonix and Octreotide - GI input appreciated, Endoscopy pending - Third unit of blood transfusing, hemodynamically stable. (2) COPD (chronic obstructive pulmonary disease) Current Visit: No Status: Chronic Priority: Medium Code(s): J44.9 - CHRONIC OBSTRUCTIVE PULMONARY DISEASE, UNSPECIFIED SNOMED Code(s): 35388882 Comment: - No exacerabation - Continue LAMA and Montelucast (3) HTN (hypertension) Current Visit: No Status: Chronic Code(s): I10 - ESSENTIAL (PRIMARY) HYPERTENSION SNOMED Code(s): 04399560 Comment: - Continue Metoprolol, Hold Spironolactone in setting of GI bleed. (4) Liver disease Current Visit: Yes Status: Acute Code(s): K76.9 - LIVER DISEASE, UNSPECIFIED SNOMED Code(s): 998600247 Comment: - Documentation of Cirrhosis, likely alcoholic - On therapy for HE - No documented Varices available - EGD pending - No ascites on exam. (5) Hx pulmonary embolism Current Visit: No Status: Chronic Priority: Medium Code(s): Z86.711 - PERSONAL HISTORY OF PULMONARY EMBOLISM SNOMED Code(s): 536458728 Comment: - Not on Anticoagulation, no signs of recurrent disease. (6) DVT prophylaxis Current Visit: No Status: Acute Priority: Medium Code(s): OKB9724 - SNOMED Code(s): 150760741 Comment: - SCDs with GIB. Status and Disposition: Inpatient for GIB
[2019-05-09] MEDS ORDERED: fentaNYL* 50 MCG/ML 2 ML VIAL (100 MCG VIAL) ONE (14:03)
[2019-05-09] MEDS ORDERED: Midazolam* 1 MG/ML 10 ML VIAL (10 MG) ONE (14:03)
--- NOTE | 2019-05-09 17:53 | PRO ---
PROCEDURE REPORT: DATE OF PROCEDURE: 05/09/19 REQUESTING PROVIDER: MINERVA Lynn. PROCEDURE: EGD. INDICATION: The patient is admitted for acute blood loss anemia with reported hematemesis and rectal bleeding. Hemoglobin quite low at 7 despite receiving 1 unit of blood. MEDICATIONS GIVEN: 1. Midazolam 7 mg IV. 2. Fentanyl 50 mcg IV. DESCRIPTION OF PROCEDURE: Full disclosure of risks was reviewed with the patient as detailed on the consent form. The patient was placed in the left lateral decubitus position and monitored with continuous pulse oximetry, capnography, interval blood pressure monitoring, and direct observation. A bite -block was placed between the patient's teeth. An adult gastroscope was then inserted into the patient's mouth and advanced down the esophagus, into the stomach, and into the distal duodenum. Findings and interventions are described below. FINDINGS: Esophagus was a tubular structure without rings or strictures. In the distal esophagus, there were 2 or 3 columns of small varices. These varices nearly flatten with insufflation. There appears to be scarring on several of the varices suggestive of prior banding. No sequelae of recent bleeding. GE junction was mildly irregular with possible minimal esophagitis. Scope was easily advanced into the gastric pouch. There was no fresh or old blood seen in the gastric pouch. Scope was then advanced to the gastrojejunal anastomosis. In the 10 o'clock position of the anastomosis, there was a black eschar. Unclear if there is ulceration underneath this area, although this is possible. In several other places along the anastomotic ring, there were esthela. Scope was then advanced into the jejunum. No fresh or old blood seen. Deeper in the jejunum, I encountered a deeply pitted ulcer. Ulcer was at least 1.2 to 1.5 cm. Edges of the ulcer appeared fibrotic. Ulcer was clean-based without high risk stigmata. Scope was advanced 10 cm past this ulcer and no fresh or old blood was seen. Scope was then slowly withdrawn from the patient. The patient was fairly well sedated during the beginning of the procedure, although she began to wake up towards the end of the procedure. She was recovered in the GI recovery area. IMPRESSION: 1. Complete upper endoscopy through gastrojejunal anastomosis to jejunum. 2. Small varices with small scars suggestive of possible banding in the past. No evidence to suggest variceal bleed. 3. Black eschar seen along gastrojejunal anastomotic ring. Possible ulceration under this area. 4. Deep pitted ulcer in the jejunum. No active bleeding or high risk feature seen. Suspect this is most likely source of bleeding, although bleeding appears to have now stopped. 5. No fresh or old blood seen on the extent of this exam. FOLLOWUP: 1. Continue IV PPI drip. Can discontinue octreotide drip. 2. Continue to monitor CBC every 6 to 8 hours. Transfuse per primary team. 3. If concern for ongoing bleeding, then I would consider a CT angiogram or tagged RBC scan. Could also consider repeat EGD vs transfer for IR. 4. Please avoid all NSAIDs. Thank you very much for this consult. GI will continue to follow. Please call with any acute clinical change. [id number]/[facility] #: [id number] ANNY
[2019-05-09 18:44] LABS: Hematocrit 29 % (35-47); Hemoglobin 9.5 g/dL (12.0-16.0)
--- NOTE | 2019-05-09 20:29 | CONS ---
CC: MINERVA Lynn GASTROENTEROLOGY CONSULT: DATE OF CONSULT: 05/09/19 REQUESTING PROVIDER: MINERVA Lynn. REASON FOR CONSULT: Concern for a significant GI bleeding. HISTORY OF PRESENT ILLNESS: Ms. Puente is a 68-year-old woman with a history of alcoholic cirrhosis, Hodgkin lymphoma, breast cancer, hypertension, hyperlipidemia, hypothyroidism, depression, prior DVT and PE, COPD, and prior gastric bypass for obesity, who is admitted with hematemesis and rectal bleeding. History obtained from admission note and the patient. The patient does not appear to be a particularly accurate historian, and she is quite tangential in her answers. Patient reports being in usual state of health until Sunday morning at 2 a.m. after she began vomiting shortly after eating a salad. She did no have any blood in her emesis at that time. Sometime later that morning, she developed repeated episodes of hematemesis. She thinks she then "passed out " as she cannot recall the reminder of the day. She recalls waking up on morning with an urge to have a bowel movement. She then had dark red to black liquid stool. She continued to have similar bowel movements throughout , which prompted her to present to the ED for evaluation. She also reports intermittent abdominal pain since onset of symptoms. No further hematemesis since Sunday per the patient. The patient reports having a history of GI bleeding in the past related to gastrojejunal ulceration. She is not on any blood thinners. Possible ibuprofen use, although difficult to clarify with the patient. In regards to her liver disease, the patient reports that she was told she had alcoholic cirrhosis sometime in the last year. When asked the circumstance that led to that diagnosis, she recalls going to [facility]. She initially says that she was bleeding at that time, but she cannot recall if that is in fact the case or if there was evaluation performed. There are no records in the [facility] or [facility] systems regarding her liver disease. The patient last had an upper endoscopy through [facility] back in 2014, which demonstrated a gastrojejunal anastomotic ulcer. The patient has not been seen since that time. PAST MEDICAL HISTORY: 1. Alcoholic cirrhosis. Details are unclear. The patient reports that she has had some confusion in the past, although she thinks this has been better. Her home med list includes lactulose and Xifaxan. She is unclear who prescribed these medicines. She does not believe she has been seeing a chip separator. 2. Hodgkin lymphoma. 3. Breast cancer, right. 4. Hypertension. 5. Hyperlipidemia. 6. Hypothyroidism. 7. COPD. 8. DVT and PE, not on anticoagulation at this time. 9. History of prior GI bleeding related to marginal ulceration. 10. Obesity, status post gastric bypass. 11. Knee arthritis. 12. Anxiety and depression. 13. Alcoholism. PAST SURGICAL HISTORY: 1. Left knee surgery. 2. Cholecystectomy. 3. Gastric bypass. 4. Hysterectomy. 5. Foot ORIF. 6. Mastectomy. MEDICATIONS: Home meds: 1. Vitamin D 2000 units daily. 2. Cyanocobalamin 1000 mcg daily. 3. Ferrous sulfate 25 mg every morning. 4. Folic acid 1 mg daily. 5. Lactulose 30 mg 4 q.i.d. 6. Levothyroxine 50 mcg daily. 7. Magnesium oxide 400 mg daily. 8. Tylenol as needed. 9. Venlafaxine 75 mg daily. 10. Ibuprofen as needed. 11. Xifaxan 550 mg twice daily. 12. Metoprolol 25 mg b.i.d. 13. Omeprazole 40 mg daily. 14. Mag oxide 400 mg daily. 16. Thiamine 100 mg every morning. 17. Spironolactone 100 mg every morning. 18. Multivitamin. ALLERGIES: PENICILLIN. FAMILY HISTORY: Sister with heart disease. No known GI or liver disease. SOCIAL HISTORY: The patient reports that she lives independently. History of alcohol use, although last drink was 2 years ago. Denies any drug use. Nonsmoker. REVIEW OF SYSTEMS: A complete review of systems is negative except as mentioned above. PHYSICAL EXAM: Vital Signs: Afebrile, heart rate in the 60s to 80s, blood pressure 106/57, 96 % on room air. General: Elderly woman. Appears older than stated age. No acute distress. HEENT: Mucous membranes moist. Cardiovascular: Regular rate and rhythm. Pulmonary: Breathing comfortably. Abdomen: Soft, nontender, nondistended. No obvious ascites. Extremities: No significant edema. Skin: No jaundice. Neuro: A and O x3. Tangential responses to answers. Difficult historian. DIAGNOSTIC STUDIES/LAB DATA: Labs reviewed. White count 7 on admission, down to 3.7; hemoglobin 7.2 on admission, down to 7 this morning at 4 a.m. after 1 unit of blood. MCV 85, platelet count initially 132 and down to 82 on repeat this morning. INR 1.43. Comprehensive panel reviewed. BUN 22 with a creatinine of 0.73. Lactic acid 1.4. Percent iron saturation is 15, ferritin 18.5. AST, ALT, alk phos, and bilirubin are within normal limits. Albumin is mildly low at 3. Magnesium is low at 1.5. Imaging: No recent relevant imaging. IMPRESSION AND RECOMMENDATION: Ms. Puente is a 68-year-old woman with an extensive medical history including alcoholic cirrhosis, prior gastrojejunal ulcer bleeding, gastric bypass, breast cancer, chronic obstructive pulmonary disease, Hodgkin lymphoma, remote deep vein thrombosis/pulmonary embolus, and anxiety/depression, who was admitted with hematemesis and rectal bleeding with significant anemia. Ms. Puente reports multiple episodes of hematemesis approximately 48 hours ago. She has been noted to have continued rectal bleeding with dark red stools and possible melena. Patient is hemodynamically stable. Labs are down from a hemoglobin of 8.7 on 05/03/19 to 7 today despite receiving a unit of blood yesterday. Presentation highly concerning for an acute presumably upper gastrointestinal bleed. Differential includes variceal bleed given her cirrhotic history. Peptic ulcer or marginal ulceration considered given possible IBU use and prior gastric bypass (w/ hx of marginal ulceration). - NPO. I will plan for urgent upper endoscopy after the patient has received at least 1 additional blood transfusion. Would like her to have her second unit of blood transfusing when she is brought down for the EGD. - Please continue octreotide and PPI drips. - Continue to monitor CBC every 6 to 8 hours with transfusions as mentioned above. - Please avoid NSAIDs. - Please also try to obtain records of the patient's liver disease history. Thank you very much for this consult. Please contact GI with any acute clinical change. [id number]/[facility] #: [id number] [facility]
[2019-05-10] MEDS ORDERED: Octreotide Acetate* 50 MCG in NS 0.9% 50 ML* 50 ML IV ONE (01:00)
[2019-05-10] MEDS: Pantoprazole* 80 mg IN NS 80 MG/250 ML BAG IV SCH ×4 (01:01→16:28)
[2019-05-10] MEDS: NS 0.9% 1000 ML** 1,000 ML IV SCH ×2 (01:04→04:42)
[2019-05-10] MEDS: Octreotide Acetate* 500 MCG in NS 0.9% 100 ML* 100 ML IV SCH (01:39)
[2019-05-10] MEDS: Acetaminophen TAB* 325 MG PO PRN ×2 (04:08→20:53)
[2019-05-10 04:53] LABS: ABS Eosinophils 0.4 10^3/ul (0-0.6); ABS Lymphocytes 1.1 10^3/ul (1.0-4.8); ABS Monocytes 0.2 10^3/ul (0-0.8); ABS Neutrophils 1.9 10^3/ul (1.5-7.7); Hematocrit 29 % (35-47); Hemoglobin 9.5 g/dL (12.0-16.0); Lymphocyte % 31.2 %; Mean Corpuscular HGB Conc 33 g/dL (31-36); Mean Corpuscular Hemoglobin 28 pg (27-31); Mean Corpuscular Volume 85 fL (80-97); Mean Platelet Volume 7.9 fL (7.4-10.4); Platelet Count 80 10^3/uL (150-450); Red Blood Count 3.36 10^6 /uL (3.70-4.87); Red Cell Distribution Width 18 % (10-15); White Blood Count 3.6 10^3/uL (3.5-10.8)
[2019-05-10 05:01] LABS: BUN/Creatinine Ratio 17.9 (8-20); Calcium 7.5 mg/dL (8.6-10.3); EGFR African American 106.6 (>60); EGFR Non-African American 88.1 (>60); Magnesium 1.9 mg/dL (1.9-2.7)
[2019-05-10] MEDS: SPIRIVA Respimat* (tiotropium) 2.5 mcg/inh Inhaler INH SCH (08:15)
[2019-05-10] MEDS: Multivitamins/Minerals TAB PO SCH (09:25)
[2019-05-10] MEDS: Cyanocobalamin TAB* 500 MCG PO SCH (09:25)
[2019-05-10] MEDS: Folic Acid TAB* 1 MG PO SCH (09:26)
[2019-05-10] MEDS: RiFAXimin* 550 MG TAB PO SCH ×2 (09:26→20:53)
[2019-05-10] MEDS: Levothyroxine TAB* 50 MCG TAB PO SCH (09:26)
[2019-05-10] MEDS: Cholecalciferol TAB* 1000 UNITS PO SCH (09:26)
[2019-05-10] MEDS: Magnesium Oxide TAB* 400 MG PO SCH (09:26)
[2019-05-10] MEDS: Thiamine TAB* 100 MG TAB PO SCH (09:26)
[2019-05-10] MEDS: Metoprolol Tartrate TAB* 25 MG PO SCH ×2 (09:26→20:53)
[2019-05-10] MEDS: CMC:Venlafaxine TAB (NF) 25 MG TAB PO SCH (09:27)
--- NOTE | 2019-05-10 13:39 | PN ---
Subjective Date of Service: 05/10/19 Interval History: Patient had only one coffee-grounds stool. Patient denies N/V, abdominal pain, dizziness, CP, SOB, F/C, or other pain. Patient is hungry and anxious to go home. Family History: Unchanged from Admission Social History: Unchanged from Admission Past Medical History: Unchanged from Admission Objective Active Medications: Acetaminophen (Tylenol Tab*) 650 mg PO Q4H PRN PRN Reason: PAIN - MILD Last Admin: 05/10/19 04:08 Dose: 650 mg Cholecalciferol (Vitamin D Tab*) 2,000 units PO DAILY [facility] Last Admin: 05/10/19 09:26 Dose: 2,000 units Cyanocobalamin (Vitamin B12 Tab*) 1,000 mcg PO DAILY [facility] Last Admin: 05/10/19 09:25 Dose: 1,000 mcg Folic Acid (Folvite Tab*) 1 mg PO DAILY [facility] Last Admin: 05/10/19 09:26 Dose: 1 mg Pantoprazole Sodium (Protonix Iv Bag*) 80 mg in 250 mls @ 25 mls/hr IV Q10H [facility] Last Admin: 05/10/19 01:01 Dose: 25 mls/hr Lactulose (Lactulose*) 30 ml PO QID [facility] Last Admin: 05/10/19 09:26 Dose: 30 ml Levothyroxine Sodium (Synthroid Tab*) 50 mcg PO DAILY [facility] Last Admin: 05/10/19 09:26 Dose: 50 mcg Magnesium Oxide (Magox 400 Tab*) 400 mg PO DAILY [facility] Last Admin: 05/10/19 09:26 Dose: 400 mg Metoprolol Tartrate (Lopressor Tab*) 25 mg PO BID [facility] Last Admin: 05/10/19 09:26 Dose: 25 mg Multivitamins/Minerals (Theragran/Minerals Tab*) 1 tab PO DAILY [facility] Last Admin: 05/10/19 09:25 Dose: 1 tab Ondansetron HCl (Zofran Inj*) 4 mg IV Q4H PRN PRN Reason: NAUSEA/VOMITING Rifaximin (Xifaxan*) 550 mg PO BID [facility] Last Admin: 05/10/19 09:26 Dose: 550 mg Thiamine HCl (Vitamin B-1 Tab*) 100 mg PO QAM [facility] Last Admin: 05/10/19 09:26 Dose: 100 mg Tiotropium Aurora (Spiriva Respimat 2.5 Mcg) 2 puff INH DAILY [facility] Last Admin: 05/10/19 08:15 Dose: 2 puff Venlafaxine HCl (Effexor Tab (Nf)) 75 mg PO DAILY [facility]; Protocol Last Admin: 05/10/19 09:27 Dose: 75 mg Vital Signs - 8 hr 05/10/19 05/10/19 05/10/19 07:15 07:24 08:18 Temperature 97.2 F Pulse Rate 74 76 Respiratory 16 16 16 Rate Blood Pressure 145/68 (mmHg) O2 Sat by Pulse 99 94 Oximetry 05/10/19 11:15 Temperature 97.1 F Pulse Rate 61 Respiratory 16 Rate Blood Pressure 146/68 (mmHg) O2 Sat by Pulse 99 Oximetry Oxygen Devices in Use Now: None Appearance: Patient is a 68yo female who appears stated age and is sitting in the bed in NAD. Eyes: No Scleral Icterus, PERRLA Ears/Nose/Mouth/Throat: NL Teeth, Lips, Gums, Clear Oropharnyx, Mucous Membranes Moist Neck: NL Appearance and Movements; NL JVP, Trachea Midline Respiratory: Symmetrical Chest Expansion and Respiratory Effort, Clear to Auscultation Cardiovascular: NL Sounds; No Murmurs; No JVD, RRR, No Edema Abdominal: NL Sounds; No Tenderness; No Distention, No Hepatosplenomegaly Lymphatic: No Cervical Adenopathy Extremities: No Edema, No Clubbing, Cyanosis Skin: No Rash or Ulcers, No Nodules or Sclerosis Neurological: Alert and Oriented x 3, NL Sensation, NL Muscle Strength and Tone , - - CN II-XII intact. Result Diagrams: 05/10/19 04:37 05/10/19 04:17 Microbiology and Other Data: Microbiology 05/08/19 22:40 Stool Occult Blood (HUANG) - Final Stool Assess/Plan/Problems-Billing Assessment: Patient is a 68yo with a PMH for Questionable Liver Disease, Gastric Bypass with Marginal Erosions, HTN, here with GIB with concern for recurrent erosion vs. Variceal bleeding S/P 3u and pending endoscopy. - Patient Problems (1) GIB (gastrointestinal bleeding) Current Visit: No Status: Acute Code(s): K92.2 - GASTROINTESTINAL HEMORRHAGE , UNSPECIFIED SNOMED Code(s): 30082388 Comment: - History liver disease and Gastric Bypass - Large Duodenal ulcer without active bleeding on EGD - History multiple GIB, no documented varices. No Previous Variceal Screening or banding. - On Protonix, stopped Octreotide - GI input appreciated, continue protonix for 72 hours. - S/P 3u PRBC, appears to have stopped bleeding, Hemodynamically stable (2) COPD (chronic obstructive pulmonary disease) Current Visit: No Status: Chronic Priority: Medium Code(s): J44.9 - CHRONIC OBSTRUCTIVE PULMONARY DISEASE, UNSPECIFIED SNOMED Code(s): 79431718 Comment: - No exacerabation - Continue LAMA and Montelukast (3) HTN (hypertension) Current Visit: No Status: Chronic Code(s): I10 - ESSENTIAL (PRIMARY) HYPERTENSION SNOMED Code(s): 38483465 Comment: - Continue Metoprolol, Hold Spironolactone and Valsartan in setting of GI bleed. (4) Liver disease Current Visit: Yes Status: Acute Code(s): K76.9 - LIVER DISEASE, UNSPECIFIED SNOMED Code(s): 056699188 Comment: - Documentation of Cirrhosis, likely alcoholic - On therapy for HE - EGD showed large ulcer and small non-bleeding varices. - No ascites on exam. (5) Hx pulmonary embolism Current Visit: No Status: Chronic Priority: Medium Code(s): Z86.711 - PERSONAL HISTORY OF PULMONARY EMBOLISM SNOMED Code(s): 778760936 Comment: - Not on Anticoagulation, no signs of recurrent disease. (6) DVT prophylaxis Current Visit: No Status: Acute Priority: Medium Code(s): ZXD9485 - SNOMED Code(s): 412496608 Comment: - SCDs with GIB. Status and Disposition: Inpatient for GIB, hopeful D/C tomorrow
--- NOTE | 2019-05-10 15:16 | PN ---
Progress Note - Progress Note Date of Service: 05/10/19 Note: GI FOLLOW-UP NOTE IE/S: - Upper endoscopy yesterday with minimal esophageal varices, black eschar at anastomotic ring (?ulcer) and large pitted clean-based ulcer in jejunum. No active bleeding. - Minimal clot per rectum this morning. Bleeding largely resolved. - H/H improved after additional 2 units, now stable. - No complaints from patient this morning other than eagerness to be discharged. O: VSS Gen: NAD. Patient is quite chatty and comfortable appearing. MMM RRR Breathing comfortably AOx3. Remains quite tangential in responses. No overt encephalopathy. Labs reviewed. Hgb 7 > 9.5 > 9.5. A/P: 68yF w/ alcoholic cirrhosis (presumably complicated by hepatic encephalopathy and esophageal varices), Hodgkin's lymphoma, breast cancer, obesity s/p lucas-en- y gastric bypass c/b gastrojejunal anastomotic ulcer bleeding, DVT/PT not on anticoagulation, who is admitted with significant upper GI bleed and associated anemia requiring blood transfusions. Upper endoscopy revealed black eschar at anastomotic ring (?ulcer) and large pitted clean-based ulcer in jejunum. No active bleeding at time of scope. These endoscopic findings are felt to account for GI bleeding source. Bleeding appears to have stopped. Technically, patient had no high risk stigmata on the large jejunal ulcer; however, she had significant bleeding and anemia. Would manage as if this is an ulcer at high risk for recurrent bleeding. - Continue to monitor CBC every 8-12 hours. - Continue IV PPI (gtt or BID) for 72 hours total. Then switch to PPI BID (po) to continue until seen in clinic. - Clear diet today. Can advance to soft diet tmrw if doing well - No NSAIDs. Patient had IBU on med list and appears to have been using it, but she doesn't directly answer when asked to clarify frequency. - Will arrange follow-up in GI clinic for the GI bleed and liver disease follow- up. Alexia Chua MD Gastroenterology
[2019-05-10 17:53] LABS: Hematocrit 29 % (35-47); Hemoglobin 9.7 g/dL (12.0-16.0)
[2019-05-11] MEDS: Pantoprazole* 80 mg IN NS 80 MG/250 ML BAG IV SCH (03:58)
[2019-05-11 06:54] LABS: ABS Eosinophils 0.5 10^3/ul (0-0.6); ABS Monocytes 0.2 10^3/ul (0-0.8); ABS Neutrophils 1.6 10^3/ul (1.5-7.7); Hematocrit 28 % (35-47); Hemoglobin 9.7 g/dL (12.0-16.0); Lymphocyte % 29.9 %; Mean Corpuscular HGB Conc 34 g/dL (31-36); Mean Corpuscular Hemoglobin 29 pg (27-31); Mean Corpuscular Volume 85 fL (80-97); Mean Platelet Volume 7.7 fL (7.4-10.4); Nucleated Red Blood Cells % 0.1; Platelet Count 76 10^3/uL (150-450); Red Blood Count 3.35 10^6 /uL (3.70-4.87); Red Cell Distribution Width 18 % (10-15); White Blood Count 3.3 10^3/uL (3.5-10.8)
[2019-05-11 07:08] LABS: BUN/Creatinine Ratio 8.5 (8-20); Calcium 7.8 mg/dL (8.6-10.3); EGFR African American 123.4 (>60); Magnesium 1.6 mg/dL (1.9-2.7); Potassium 3.3 mmol/L (3.5-5.0)
[2019-05-11] MEDS ORDERED: Magnesium Sulfate 2 GM IV* 2 GM/50 ML BAG IVPB ONE (07:16)
[2019-05-11] MEDS: SPIRIVA Respimat* (tiotropium) 2.5 mcg/inh Inhaler INH SCH (08:45)
[2019-05-11] MEDS: Cholecalciferol TAB* 1000 UNITS PO SCH (10:29)
[2019-05-11] MEDS: Thiamine TAB* 100 MG TAB PO SCH (10:29)
[2019-05-11] MEDS: Folic Acid TAB* 1 MG PO SCH (10:29)
[2019-05-11] MEDS: Magnesium Oxide TAB* 400 MG PO SCH (10:29)
[2019-05-11] MEDS: Cyanocobalamin TAB* 500 MCG PO SCH (10:29)
[2019-05-11] MEDS: Levothyroxine TAB* 50 MCG TAB PO SCH (10:29)
[2019-05-11] MEDS: Metoprolol Tartrate TAB* 25 MG PO SCH (10:30)
[2019-05-11] MEDS: Multivitamins/Minerals TAB PO SCH (10:30)
[2019-05-11] MEDS: CMC:Venlafaxine TAB (NF) 25 MG TAB PO SCH (10:30)
[2019-05-11] MEDS: RiFAXimin* 550 MG TAB PO SCH (10:30)
[2019-05-11] MEDS: Acetaminophen TAB* 325 MG PO PRN (11:30)
[2019-05-11 12:09] VITALS: BP 143/67
[2019-05-11] MEDS ORDERED: KCL 20 MEQ/100 ML IVPREMIX* 20 MEQ/100 ML BAG IV SCH (14:00)
[2019-05-11] MEDS ORDERED: Potassium Chlor TAB* 20 MEQ TAB.ER PO ONE (14:21)
--- NOTE | 2019-05-11 21:30 | DS ---
CC: Dr. Bobby Ragsdale * DISCHARGE SUMMARY: DATE OF ADMISSION: 05/08/19 DATE OF DISCHARGE: 05/11/19 PRIMARY CARE PROVIDER: Dr. Bobby Ragsdale. MY ATTENDING WHILE IN THE HOSPITAL: Dr. Radha Acevedo.* (DICTATED BY MINERVA ZAMUDIO) PRIMARY DISCHARGE DIAGNOSIS: Acute blood loss anemia due to gastrointestinal bleeding from jejunal ulcer. SECONDARY DIAGNOSES: 1. History of Hodgkin's lymphoma. 2. History of breast cancer. 3. Hypertension. 4. Hyperlipidemia. 5. Hypothyroidism. 6. Chronic obstructive pulmonary disease. 7. DVT/PE. 8. History of multiple gastrointestinal bleeds. 9. History of gastric bypass with marginal erosions. 10. Anxiety and depression. 11. Cirrhosis due to alcoholic hepatitis. STUDIES DONE WHILE IN THE HOSPITAL: EGD showed small varices, black eschar along the gastrojejunal anastomotic ring, possible ulceration. Deep pitted ulcer in the jejunum. No active bleeding or high-risk feature seen. Suspect most likely source of bleeding, although bleeding appears to have now stopped. MEDICATIONS AT DISCHARGE: 1. Metoprolol tartrate 25 mg p.o. b.i.d. 2. Singulair 10 mg p.o. daily. 3. Multivitamin 1 tab p.o. daily. 4. Magnesium oxide 400 mg p.o. daily. 5. Levothyroxine 50 mcg p.o. daily. 6. Rifaximin 550 mg p.o. b.i.d. 7. Incruse Ellipta 1 puff inhalation daily. 8. Lactulose 45 mL p.o. 4 times a day. 9. Omeprazole 40 mg p.o. b.i.d. 10. Folic acid 1 mg p.o. daily. 11. Thiamine 100 mg p.o. daily. 12. Spironolactone 100 mg p.o. daily. 13. Biofreeze 4% topical b.i.d. as needed. 14. Tylenol Extra Strength 500 mg p.o. q.6 hours as needed. 15. Venlafaxine 75 mg p.o. daily. 16. Vitamin D 2000 units p.o. daily. 17. Vitamin B12 1000 mcg p.o. daily. New medication at discharge: 1. Omeprazole 40 mg p.o. b.i.d. Medications discontinued at discharge: 1. Omeprazole 40 mg p.o. daily. 2. Ibuprofen 400 mg p.o. q.6 hours as needed. 3. Ferrous sulfate 325 mg p.o. daily. HOSPITAL COURSE: This is a brief summary of the patient's presentation. For more details, please see history and physical from Ivette Fish NP, on . In brief, the patient is a 68-year-old female who had been in her normal state of health until approximately 2 days before her admission when she began to feel nauseated and had vomiting, which included blood. She states that she does not remember most of , 05/08/19, due to being lethargic. The patient then started having large amounts of bright red blood per rectum and came into the emergency department. She felt weak and dizzy at that time. She had been taking ibuprofen in the past. The patient has had many previous GI bleeds and had been diagnosed 1 year before at [facility] with cirrhosis, which was complicated by hepatic encephalopathy. The patient in the emergency department was started on pantoprazole and octreotide for GI bleeding, possibly of more than likely an upper GI source due to hematemesis. The patient's hemoglobin on 05/03/19 was 8.7, it was down to 7.2 on presentation, and then after 1 unit of blood, it went further down to 7 indicating brisk blood loss. The patient was transfused 2 units. The patient had an EGD as above showing deep pitting ulcer. The patient's octreotide was stopped after this was shown not to be a variceal bleed. The patient was continued on approximately 65 hours of IV PPI for a high-risk ulcer. The patient was stable. The patient had been passing melena and then normal bowel movements, which were loose from her lactulose. The patient was instructed to avoid all NSAIDs. The patient had no abdominal pain and was stable and amenable for discharge on 05/11/19. PHYSICAL EXAMINATION ON THE DAY OF DISCHARGE: General: The patient is an 68- year-old female who appears stated age, sitting comfortably in bed, in no acute distress. Vital Signs: At the time of discharge, temperature 97.9, pulse rate 67, respiratory rate 19, oxygen saturation 98% on room air, blood pressure 143/ 67. HEENT: Normocephalic, atraumatic. Sclerae anicteric. No conjunctival injection. Nasal mucosa moist. Oral mucosa moist. Neck: Supple, nontender. No lymphadenopathy. No carotid bruits auscultated. No JVD. Cardiac: Regular rate and rhythm. No clicks, murmurs, gallops, or rubs. Pulses 2+ in bilateral dorsalis pedis, posterior tibialis, and radial areas. Respiratory: Clear to auscultation bilaterally. No wheezes, rales, or rhonchi. Good air exchange bilaterally. Abdomen: Soft, nontender, and nondistended. Bowel sounds present, normoactive in all 4 quadrants. No hepatosplenomegaly. No abdominal bruits auscultated. No signs of ascites. Skin: Clean, dry, and intact. No rashes. Neuro: Cranial nerves II through XII intact. No focal deficits. Alert and oriented x3. Psychiatric: Pleasant and cooperative. DISCHARGE PLAN BY PROBLEM: 1. Acute blood loss anemia due to jejunal ulcer. The patient has been given 65 hours of IV PPI. She will be transitioned to oral omeprazole 40 mg b.i.d. for maximal PPI therapy. At home, the patient should avoid all NSAIDs. The patient should have a soft diet, which she will advance as tolerated. The patient should follow up with the gastroenterology clinic in 6 weeks for management of her GI bleeding and her liver failure. The patient's hemoglobin is staying stable at 9.7. She has no signs of ongoing bleeding. 2. Liver failure. The patient had cirrhosis, presumed to be related to alcoholic cirrhosis diagnosed [address] [facility]. The patient is on lactulose and rifaximin for hepatic encephalopathy and does not appear encephalopathic at this time. The patient will be continued on her spironolactone. It is the only diuretic she is on. She has no signs of ascites at this time. 3. History of DVT and PE. The patient is not on anticoagulation for this. This will likely not be started due to the patient's issues with GI bleeding. The patient has no signs of DVT at this time. 4. History of Hodgkin's lymphoma and breast cancer. These are both in remission. Follow up per her normal routine. 5. Thrombocytopenia. This is likely due to a combination of acute bleeding and cirrhosis. The patient's platelet count is 76 on the day of discharge and she does not need transfusion. 6. Anxiety and depression. Continue the patient's venlafaxine. 7. Asthma/COPD. Continue the patient's Incruse Ellipta and Singulair. 8. History of gastric bypass. Continue the patient's vitamin D and vitamin B12 supplementation. 9. Iron-deficiency anemia. The patient is no longer iron deficient. The patient's ferrous sulfate had been stooped. The patient may very well become iron deficit after this acute episode of bleeding and IV or oral iron therapy should be reinstituted as needed. 10. History of hepatic encephalopathy. Continue the patient's lactulose and rifaximin with a goal of 2 to 3 bowel movements a day. DISPOSITION: Home. CONDITION: Stable. TIME SPENT: Approximately 60 minutes was spent on this discharge of this patient, 30 of which was spent [id number] with the patient obtaining history and physical and discussing treatment plan. MINERVA ZAMUDIO [id number]/GALE #: [id number] ANNY
== END 2019-05-11 16:28 | disposition home or self-care (01) | DRG 378 ==
LOC: ED 22:20 → MEDTELE 05-09 00:45 → OBSVTOIN 05-09 11:00
PROVIDERS: ADMIT Internal Medicine; ATTEND Internal Medicine
PROC: 0DJ08ZZ Inspection of Upper Intestinal Tract, Via Natural or Artificial Opening Endoscopic (ICD-10-PCS; principal; 2019-05-09)
PROC: 30233N1 Transfusion of Nonautologous Red Blood Cells into Peripheral Vein, Percutaneous Approach (ICD-10-PCS; 2019-05-09)
DX: K28.4 Chronic or unspecified gastrojejunal ulcer with hemorrhage (principal); D62 Acute posthemorrhagic anemia; E78.5 Hyperlipidemia, unspecified; F41.9 Anxiety disorder, unspecified; F32.9 Major depressive disorder, single episode, unspecified; K21.9 Gastro-esophageal reflux disease without esophagitis; J44.9 Chronic obstructive pulmonary disease, unspecified; E03.9 Hypothyroidism, unspecified; E83.42 Hypomagnesemia; K70.30 Alcoholic cirrhosis of liver without ascites; K70.40 Alcoholic hepatic failure without coma; I10 Essential (primary) hypertension; Z92.21 Personal history of antineoplastic chemotherapy; Z88.0 Allergy status to penicillin; Z88.7 Allergy status to serum and vaccine; Z85.3 Personal history of malignant neoplasm of breast; Z90.13 Acquired absence of bilateral breasts and nipples; Z86.718 Personal history of other venous thrombosis and embolism; Z86.711 Personal history of pulmonary embolism; Z85.72 Personal history of non-Hodgkin lymphomas; Z98.84 Bariatric surgery status
CPT/HCPCS: 36415; 80048; 80053; 82140; 82270; 82607; 82728; 82746; 83540; 83550; 83605; 83690; 83735; 84484; 85014; 85018; 85025; 85060; 85610; 85730; 86140; 86850; 86900; 86901; 86922; 93005; 94640; 96361; 96374; 96376; 99156; 99157; 99284; A9270-GY; G0378; J1756; J2250; J2354; J3010; J3475; J3535; P9040